=== PATIENT | female | born 1930 | race Caucasian/White ===

== ENCOUNTER 2017-02-16 17:19 | Inpatient (IN) | payer MEDICARE ==
[2017-02-16 18:28] LABS: #Basophils 0.1 thou/uL (0.0-0.2); #Lymphocytes 0.4 thou/uL (1.20-3.40); #Monocytes 0.6 thou/uL (0.11-0.59); #Neutrophils 13.9 thou/uL (1.40-6.50); %Basophils 0.8 % (0.0-1.0); %Eosinophils 0.1 % (0.0-10.0); %Lymphocytes 2.7 % (21.0-51.0); %Monocytes 4.2 % (0.0-10.0); Hematocrit 31.8 % (36.0-47.0); Mean Platelet Volume 9.1 fL (7.4-10.4); Red Blood Cell (RBC) Count 3.78 mill/uL (4.20-5.40); White Blood Cell (WBC) Count 15.1 thou/uL (4.8-10.8)
[2017-02-16 18:37] LABS: Lactic Acid - Sepsis 1.6 mmol/L (0.5-2.2)
[2017-02-16 18:44] LABS: ALT (SGPT) 23 U/L (8-55); AST (SGOT) 25 U/L (5-34); Alkaline Phosphatase 60 U/L (40-150); Anion Gap 17 mmol/L (10-20); BUN (Urea Nitrogen) 23 mg/dL (9.8-20.1); Bilirubin, Total 0.5 mg/dL (0.2-1.2); Calc. Creatinine Clearance 0 mL/min (70-130); Calcium 9.3 mg/dL (7.8-10.44); Carbon Dioxide 21 mmol/L (23-31); Chloride 95 mmol/L (98-107); Estimated GFR-MDRD 49; Globulin 3.4 g/dL (2.4-3.5); Protein, Total 6.8 g/dL (6.0-8.3)
[2017-02-16 18:46] LABS: Bilirubin Negative (Negative); Blood, Urine Moderate (Negative); Glucose, Urine (Dipstick) Negative (Negative); Ketone, Urine Negative (Negative); Nitrite Positive (Negative); Protein, Urine (Dipstick) 100 mg/dL (Neg-Trace); Urobilinogen 0.2 mg/dL (0.2-1.0)
--- NOTE | 2017-02-16 18:48 | RAD ---
PORTABLE CHEST: 02/16/17 HISTORY: Fever. recent fall. Heart size appears slightly enlarged. There are atherosclerotic changes of the aorta. Surgical clips are seen in the right axillary region. The lungs are clear of infiltrates. IMPRESSION: Mild cardiomegaly. POS: [facility]
[2017-02-16 18:49] LABS: WBC/HPF 21-50 HPF (0-3)
[2017-02-16 18:50] LABS: Bacteria/HPF 4+ HPF (None Seen); Oval Fat Bodies/HPF Rare HPF (None Seen); Renal Epithelial 0-3 HPF (0-3)
[2017-02-16] MEDS ORDERED: cefTRIAXone\\ROCEPHIN 2 GM VIAL ONE (19:56)
[2017-02-16] MEDS ORDERED: Sodium Chloride 0.9% 100 ML ONE (19:56)
[2017-02-16] MEDS ORDERED: Potassium Chloride 20 MEQ TAB ONE (20:30)
[2017-02-16] MEDS ORDERED: Ondansetron HCl/PF 4 MG/2 ML Vial IVP PRN (23:02)
[2017-02-16] MEDS ORDERED: Ondansetron ODT 4 MG TAB SL PRN (23:02)
[2017-02-16] MEDS ORDERED: Acetaminophen 325 MG TAB PO PRN (23:02)
[2017-02-16 23:19] VITALS: BMI 30.9
[2017-02-16] MEDS: Sodium Chloride 0.9% 1,000 ML IV SCH (23:36)
[2017-02-17] MEDS ORDERED: HYDROcodone/Acetaminophen 5/325 mg Tablet PO PRN (02:08)
[2017-02-17] MEDS ORDERED: Ondansetron ODT 4 MG TAB PO PRN (02:08)
[2017-02-17] MEDS ORDERED: HYDROcodone/Acetaminophen 10/325 mg Tablet PO PRN (02:08)
[2017-02-17] MEDS ORDERED: Dextrose 50% Abboject 50 ML SYRINGE SLOW IVP PRN (02:10)
[2017-02-17] MEDS ORDERED: Dextrose 5% in Water 1,000 ML IV PRN (02:10)
[2017-02-17] MEDS: Sodium Chloride 0.9% 1,000 ML IV SCH ×4 (02:41→19:38)
[2017-02-17 05:16] LABS: #Lymphocytes 0.9 thou/uL (1.20-3.40); #Neutrophils 11.5 thou/uL (1.40-6.50); %Basophils 0.1 % (0.0-1.0); %Eosinophils 0.1 % (0.0-10.0); %Lymphocytes 6.9 % (21.0-51.0); %Monocytes 7.5 % (0.0-10.0); Anion Gap 11 mmol/L (10-20); BUN (Urea Nitrogen) 17 mg/dL (9.8-20.1); Calc. Creatinine Clearance 52 mL/min (70-130); Calcium 8.3 mg/dL (7.8-10.44); Carbon Dioxide 23 mmol/L (23-31); Chloride 103 mmol/L (98-107); Estimated GFR-MDRD 61; Hematocrit 31.4 % (36.0-47.0); Red Blood Cell (RBC) Count 3.62 mill/uL (4.20-5.40); White Blood Cell (WBC) Count 13.4 thou/uL (4.8-10.8)
[2017-02-17] MEDS: Levothyroxine Sodium 50 MCG TAB PO SCH (05:35)
--- NOTE | 2017-02-17 06:44 | HP ---
PRIMARY CARE PHYSICIAN: Listed as [facility] here in [place]. CHIEF COMPLAINT: Shaking and fall. HISTORY OF PRESENT ILLNESS: Ms. Alexandre is a pleasant 86-year-old female with histor y of hypertension, hyperlipidemia, diabetes, and osteopenia, who presents to an outside emergency de partment after falling today. Her daughter at the bedside gave the history, states the patient began to have a spell of shaking ye day where she had shaking of upper extremities. She was coherent during the whole day and just felt cold. Today, the shaking returned while the patient was sitting on the toilet. Due to the shaking, she fe lt very weak and subsequently slid down off the toilet on to the floor. Per the daughter, she did f eel feverish today, however, when EMS was called, she had a temperature over 100. She denies any ch est pain or difficulty breathing, no nausea or vomiting, no hematuria or dysuria. She was taken to the emergency department at [facility] emergency room where she was diag nosed with a urinary tract infection due to abnormal urine and elevated white blood cell count. She was given IV vancomycin and Rocephin and transported here after 2 liters of normal saline. Incidentally, on 02/05, the patient was seen by her primary care physician, was diagnosed with a UT I at that point and started on 5 days of an unknown antibiotic, which she did complete. To the daug hter's knowledge, a urine culture was not sent. The patient is currently feeling better after getting fluids. PAST MEDICAL HISTORY: 1. Hypertension. 2. Hyperlipidemia. 3. Diabetes mellitus, type 2. 4. Osteopenia. 5. Hypothyroidism. 6. History of breast cancer, status post mastectomy. PAST SURGICAL HISTORY: 1. Right mastectomy. 2. Appendectomy. 3. Cholecystectomy. 4. Bilateral tubal ligation. HOME MEDICATIONS: 1. Fosamax 70 mg p.o. every week. 2. Levothyroxine 50 mcg daily. 3. Metoprolol tartrate 50 mg p.o. every morning. 4. Olmesartan/HCTZ 40/25 one p.o. daily. 5. Zocor 10 mg p.o. at bedtime. 6. Amlodipine 10 mg p.o. every morning. 7. Metformin 500 mg p.o. b.i.d. ALLERGIES: NKDA. FAMILY HISTORY: Negative for clotting or bleeding disorder, no history of immune dysfunction. SOCIAL HISTORY: Negative for habits x3. REVIEW OF SYSTEMS: A 10-point review of systems was performed and negative for all other systems ex cept as stated as per HPI. PHYSICAL EXAMINATION: VITAL SIGNS: Temperature on arrival 96.4, pulse 104, blood pressure 141/91, respiratory rate 20, sa tting 92% on room air. GENERAL: She is awake. She is alert. She is oriented x3. She is a well-developed, well-nourished , quit female, appears to be in no acute distress. HEENT: She is normocephalic, atraumatic. Pupils are equal and reactive bilaterally, mucous membran es are moist. She has no visible lesion, no thrush. NECK: Supple, without lymphadenopathy, JVD, or thyromegaly. CHEST: Lungs are clear. She has good air movement. Symmetrical chest excursion and no wheezes, ra les, or rhonchi. CARDIOVASCULAR: Slightly tachycardic. Normal S1 and S2. No S3 or S4. She has a faint systolic mu rmur at the right upper sternal border, 2/10 and no diastolic murmurs. ABDOMEN: Soft. It is nontender and nondistended, slightly obese. She has no rebound, rigidity, or guarding. EXTREMITIES: Show no cyanosis, no clubbing, no edema. 2+ peripheral pulses in dorsalis pedis and p osterior tibial arteries in bilateral lower extremities. SKIN: Warm, moist, and well perfused. She has no rashes or lesions. MUSCULOSKELETAL EXAM: Normal to inspection. She has no inflamed or hot joints. She has no palpabl e joint effusions. NEUROLOGIC EXAM: Shows cranial nerves II through XII are grossly intact. She has 5/5 strength. e has no focal deficits and normal speech. LABORATORY DATA: CMP showed a sodium of 130, potassium 3.3, chloride 95, bicarbonate 21, BUN 23, cr eatinine 1.07, and glucose 185. Liver functions were normal. CBC showed white count elevated at 15,100 with 92% granulocytes, hemoglobin is 10.8, hematocrit of 3 1.8, and platelets were normal at 148,000. Urinalysis showed nitrite positive, leukocyte esterase moderate, white blood cells 21 to 50, and uri ne bacteria 4+. Lactic acid was normal at 1.6. RADIOGRAPHIC STUDIES: 1. Chest x-ray showed mild cardiomegaly, but stable. 2. EKG showed right bundle-branch block with sinus tachycardia. ASSESSMENT AND PLAN: 1. Urinary tract infection. Patient apparently just failed outpatient therapy. She received Rocep hin and vancomycin. My doubt is methicillin-resistant Staphylococcus aureus. We will treat her wit h cefepime 1 gram IV every 12 hours, await for urine culture. 2. Sepsis: Tachycardic, elevated white blood cell count, suspected bacterial infection, and low te mperature. Patient adequately volume resuscitated. We will continue her on IV fluids here. We ramandeep l continue antibiotics and follow up on cultures. 3. Diabetes mellitus, type 2. The patient is on metformin, which was hold at present. We will kunal ce patient on a sliding scale correction and before and at bedtime Accu-Cheks. 4. Hypertension: On metoprolol and olmesartan/HCTZ, we will continue, and also continue amlodipine . 5. Hyperlipidemia, on Zocor: We will hold for right now. There is osteopenia, on weekly Fosamax. 6. Hypothyroidism. We will continue her on levothyroxine.
--- NOTE | 2017-02-17 09:45 | PDOC.PN ---
- Subjective Encounter Start Date: 02/17/17 Encounter Start Time: 08:00 Subjective: no sob or chills, is feeling better -: oriented well - Objective Resuscitation Status: Resuscitation Status FULL:Full Resuscitation MAR Reviewed: Yes Vital Signs & Weight: Vital Signs (12 hours) Temp Pulse Resp BP Pulse Ox 02/17/17 04:00 98.2 F 18 138/67 02/16/17 23:14 96.6 F L 104 H 20 141/91 H 92 L 02/16/17 23:10 96.6 F L 104 H 20 92 L Weight Weight 153 lb I&O: 02/16/17 02/17/17 02/18/17 06:59 06:59 06:59 Intake Total 927 Output Total 1650 Balance -723 Result Diagrams: 02/17/17 04:26 02/17/17 04:26 Additional Labs: Accuchecks 02/17/17 05:54 POC Glucose 152 H Phys Exam - Physical Examination HEENT: PERRLA, moist MMs Neck: no JVD, supple Respiratory: no wheezing, no rales Cardiovascular: RRR, no significant murmur Gastrointestinal: soft, non-tender, positive bowel sounds Musculoskeletal: no edema, pulses present Neurological: non-focal, moves all 4 limbs Psychiatric: A&O x 3 Dx/Plan (1) Sepsis Code(s): A41.9 - SEPSIS, UNSPECIFIED ORGANISM Status: Acute Qualifiers: Sepsis type: sepsis due to unspecified organism Qualified Code(s): A41.9 - Sepsis, unspecified organism (2) UTI (urinary tract infection) Status: Acute Qualifiers: Urinary tract infection type: acute cystitis Hematuria presence: without hematuria Qualified Code(s): N30.00 - Acute cystitis without hematuria (3) DM type 2 (diabetes mellitus, type 2) Status: Chronic Qualifiers: Diabetes mellitus complication status: with unspecified complications Diabetes mellitus group home insulin use: without group home use Qualified Code( s): E11.8 - Type 2 diabetes mellitus with unspecified complications (4) HTN (hypertension) Code(s): I10 - ESSENTIAL (PRIMARY) HYPERTENSION Status: Chronic Qualifiers: Hypertension type: essential hypertension Qualified Code(s): I10 - Essential (primary) hypertension (5) Dyslipidemia Code(s): E78.5 - HYPERLIPIDEMIA, UNSPECIFIED Status: Chronic (6) Hypothyroidism Code(s): E03.9 - HYPOTHYROIDISM, UNSPECIFIED Status: Chronic Qualifiers: Hypothyroidism type: unspecified Qualified Code(s): E03.9 - Hypothyroidism , unspecified (7) h/o right breast cancer Status: Chronic Comment: with prior mastectomy in remission - Plan is on cefepime -: await cultures -: prior CT abd shows no calculus -: gentle iv hydration until the current bag is done -: to ambulate as tolerated, d/w family at bedside * . Review of Systems - Medications/Allergies Allergies/Adverse Reactions: Allergies Allergy/AdvReac Type Severity Reaction Status Date / Time No Known Drug Allergies Allergy Verified 02/16/17 23:16 Medications: Current Medications Acetaminophen (Tylenol) 650 mg PO Q4H PRN PRN Reason: Headache/Fever or Pain Stop: 02/17/17 09:58 Last Admin: 02/17/17 00:20 Dose: 650 mg Hydrocodone Bitart/Acetaminophen ([place] 10/325) 1 tab PO Q4H PRN PRN Reason: Severe Pain (7-10) Hydrocodone Bitart/Acetaminophen ([place] 5/325) 1 tab PO Q4H PRN PRN Reason: Moderate Pain (4-6) Amlodipine Besylate (Norvasc) 10 mg PO DAILY [facility] Dextrose/Water (Dextrose 50%) 25 gm SLOW IVP PRN PRN PRN Reason: Hypoglycemia Famotidine (Pepcid) 20 mg PO BID [facility] Glucagon (Glucagon) 1 mg IM PRN PRN PRN Reason: Hypoglycemia Hydrochlorothiazide (Hydrochlorothiazide) 25 mg PO DAILY [facility] Cefepime HCl 1 gm/Miscellaneous Medication 1 each/ Sodium Chloride 100 mls @ 200 mls/hr IVPB Q12HR [facility] Dextrose/Water (D5w) 1,000 mls @ 0 mls/hr IV .Q0M PRN; As Directed PRN Reason: Hypoglycemia Sodium Chloride (Normal Saline 0.9%) 1,000 mls @ 100 mls/hr IV .Q10H [facility] Last Admin: 02/17/17 05:38 Dose: 1,000 mls Insulin Human Lispro (Humalog) 0 units SC .MILD SLIDING SCALE PRN PRN Reason: Mild Correctional Scale Levothyroxine Sodium (Synthroid) 50 mcg PO 0600 [facility] Last Admin: 02/17/17 05:35 Dose: 50 mcg Metoprolol Tartrate (Lopressor) 50 mg PO DAILY [facility] Olmesartan (Benicar) 40 mg PO DAILY [facility] Ondansetron HCl (Zofran) 4 mg IVP Q6H PRN PRN Reason: Nausea/Vomiting Stop: 02/17/17 09:58 Ondansetron HCl (Zofran Odt) 4 mg SL Q6H PRN PRN Reason: Nausea/Vomiting Stop: 02/17/17 09:58 Ondansetron HCl (Zofran Odt) 4 mg PO Q6H PRN PRN Reason: Nausea/Vomiting Simvastatin (Zocor) 10 mg PO HS [facility] Sodium Chloride (Flush - Normal Saline) 10 ml IVF Q12HR [facility] Sodium Chloride (Flush - Normal Saline) 10 ml IVF PRN PRN PRN Reason: Saline Flush
[2017-02-17] MEDS: Metoprolol Tartrate 50 MG TAB PO SCH (09:50)
[2017-02-17] MEDS: Cefepime 1 GM, Admixture Fee 1 EACH in Sodium Chloride 0.9% 100 ML IVPB SCH ×2 (09:50→19:29)
[2017-02-17] MEDS: Amlodipine 10 MG TAB PO SCH (09:50)
[2017-02-17] MEDS: Hydrochlorothiazide 25 MG TAB PO SCH (09:50)
[2017-02-17] MEDS: Famotidine 20 MG TAB PO SCH ×2 (09:50→19:30)
--- NOTE | 2017-02-17 13:28 | CT ---
CT STONE PROTOCOL ABDOMEN AND PELVIS WITHOUT CONTRAST: History Flank pain. Breast surgery. COMPARISON: CT abdomen and pelvis 04/29/14. FINDINGS: Heart size is enlarged. Trace pericardial fluid. Dense mitral annular calcifications. Small pleural fluid. There is mild retroperitoneal fluid. Mild subcutaneous fluid. There is asymmetric edema around the right kidney relative to the left. No hydroureteral nephrosis or nephroureteral lithiasis. Modera te atherosclerotic plaque of the aortoiliac system. 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 No dilated loops of large or small bowel. Prior cholecystectomy. Severe degenerative disease of pubic symphysis. Pulmonary nodule right middle lobe is similar. Right renal cysts are similar. Small fat-containing right thoracolumbar fascia hernia, similar. IMPRESSION: 1. Asymmetric perinephric stranding and renomegaly of the right kidney relative to the left suggest s pyelonephritis given the absence of distal obstructing calculus. Small distal obstructing urotheli al mass cannot be excluded and follow up urogram may be beneficial if clinically warranted. 2. Increased perinephric stranding bilaterally as well as subcutaneous edema relative to the prior examination along with small left effusion. The cardiomegaly suggests volume overload or congestiv e heart failure. Clinical correlation is advised. 3. Similar appearance to the right lower lobe pulmonary nodules. 4. Right renal cyst. 5. Moderate to severe spondylosis of the lumbar spine. There is likely some mild canal and neural foraminal narrowing at L4-5. POS: [facility]
[2017-02-17] MEDS: metFORMIN 500 MG TAB PO SCH (17:02)
[2017-02-17] MEDS: Simvastatin 5 MG TAB PO SCH (19:29)
[2017-02-18] MEDS: Acetaminophen 500 MG TAB PO PRN ×2 (04:08→17:31)
[2017-02-18] MEDS: Levothyroxine Sodium 50 MCG TAB PO SCH (05:03)
[2017-02-18] MEDS: Cefepime 1 GM, Admixture Fee 1 EACH in Sodium Chloride 0.9% 100 ML IVPB SCH ×2 (09:21→20:43)
[2017-02-18] MEDS: HumaLOG 300 UNITS/3 ML VIAL SC PRN (09:22)
[2017-02-18] MEDS: Hydrochlorothiazide 25 MG TAB PO SCH (09:23)
[2017-02-18] MEDS: Amlodipine 10 MG TAB PO SCH (09:23)
[2017-02-18] MEDS: Metoprolol Tartrate 50 MG TAB PO SCH (09:23)
[2017-02-18] MEDS: metFORMIN 500 MG TAB PO SCH ×2 (09:24→17:31)
[2017-02-18] MEDS: Famotidine 20 MG TAB PO SCH ×2 (09:24→20:44)
--- NOTE | 2017-02-18 10:00 | PDOC.PN ---
- Subjective Encounter Start Date: 02/18/17 Encounter Start Time: 08:15 Subjective: feels better, is eating better now -: no further chills - Objective Resuscitation Status: Resuscitation Status FULL:Full Resuscitation MAR Reviewed: Yes Vital Signs & Weight: Vital Signs (12 hours) Temp Pulse Resp BP BP BP Pulse Ox 02/18/17 09:23 95 143/94 H 02/18/17 09:15 98.8 F 95 18 143/94 H 92 L 02/18/17 04:00 100.3 F H 112 H 18 144/67 H Weight Weight 153 lb I&O: 02/17/17 02/18/17 02/19/17 06:59 06:59 06:59 Intake Total 927 2092 Output Total 1650 1300 Balance -723 792 Result Diagrams: 02/17/17 04:26 02/17/17 04:26 Additional Labs: Accuchecks 02/18/17 02/17/17 02/17/17 05:13 21:03 16:36 POC Glucose 164 H 230 H 148 H 02/17/17 11:33 POC Glucose 180 H Phys Exam - Physical Examination HEENT: PERRLA, moist MMs Neck: no JVD, supple Respiratory: no wheezing, no rales Cardiovascular: RRR, no significant murmur Gastrointestinal: soft, non-tender, positive bowel sounds Musculoskeletal: no edema, pulses present Neurological: non-focal, moves all 4 limbs Psychiatric: A&O x 3 Dx/Plan (1) Bacteremia due to Escherichia coli Code(s): R78.81 - BACTEREMIA Status: Acute (2) Sepsis Code(s): A41.9 - SEPSIS, UNSPECIFIED ORGANISM Status: Acute Qualifiers: Sepsis type: sepsis due to unspecified organism Qualified Code(s): A41.9 - Sepsis, unspecified organism (3) UTI (urinary tract infection) Status: Acute Qualifiers: Urinary tract infection type: acute pyelonephritis Qualified Code(s): N10 - Acute pyelonephritis Comment: right pyelonephritis (4) DM type 2 (diabetes mellitus, type 2) Status: Chronic Qualifiers: Diabetes mellitus complication status: with unspecified complications Diabetes mellitus snf insulin use: without ferry terminal agent use Qualified Code( s): E11.8 - Type 2 diabetes mellitus with unspecified complications (5) HTN (hypertension) Code(s): I10 - ESSENTIAL (PRIMARY) HYPERTENSION Status: Chronic Qualifiers: Hypertension type: essential hypertension Qualified Code(s): I10 - Essential (primary) hypertension (6) Dyslipidemia Code(s): E78.5 - HYPERLIPIDEMIA, UNSPECIFIED Status: Chronic (7) Hypothyroidism Code(s): E03.9 - HYPOTHYROIDISM, UNSPECIFIED Status: Chronic Qualifiers: Hypothyroidism type: unspecified Qualified Code(s): E03.9 - Hypothyroidism , unspecified (8) h/o right breast cancer Status: Chronic Comment: with prior mastectomy in remission - Plan is on cefepime -: await final culture results, dont see urine cs -: transfer pt to medical floor -: dc iv fluids, is tolerating oral diet -: tmax of 100, will need outpt urology consult in 3 weeks * . Review of Systems - Medications/Allergies Allergies/Adverse Reactions: Allergies Allergy/AdvReac Type Severity Reaction Status Date / Time No Known Drug Allergies Allergy Verified 02/16/17 23:16 Medications: Current Medications Acetaminophen (Tylenol) 1,000 mg PO Q6H PRN PRN Reason: Headache/Fever or Pain Last Admin: 02/18/17 04:08 Dose: 1,000 mg Hydrocodone Bitart/Acetaminophen ([place] 10/325) 1 tab PO Q4H PRN PRN Reason: Severe Pain (7-10) Hydrocodone Bitart/Acetaminophen ([place] 5/325) 1 tab PO Q4H PRN PRN Reason: Moderate Pain (4-6) Last Admin: 02/17/17 19:30 Dose: 1 tab Amlodipine Besylate (Norvasc) 10 mg PO DAILY [facility] Last Admin: 02/18/17 09:23 Dose: 10 mg Dextrose/Water (Dextrose 50%) 25 gm SLOW IVP PRN PRN PRN Reason: Hypoglycemia Famotidine (Pepcid) 20 mg PO BID [facility] Last Admin: 02/18/17 09:24 Dose: 20 mg Glucagon (Glucagon) 1 mg IM PRN PRN PRN Reason: Hypoglycemia Hydrochlorothiazide (Hydrochlorothiazide) 25 mg PO DAILY [facility] Last Admin: 02/18/17 09:23 Dose: 25 mg Cefepime HCl 1 gm/Miscellaneous Medication 1 each/ Sodium Chloride 100 mls @ 200 mls/hr IVPB Q12HR [facility] Last Admin: 02/18/17 09:21 Dose: 100 mls Dextrose/Water (D5w) 1,000 mls @ 0 mls/hr IV .Q0M PRN; As Directed PRN Reason: Hypoglycemia Sodium Chloride (Normal Saline 0.9%) 1,000 mls @ 100 mls/hr IV .Q10H [facility] Last Admin: 02/17/17 19:38 Dose: 1,000 mls Insulin Human Lispro (Humalog) 0 units SC .MILD SLIDING SCALE PRN PRN Reason: Mild Correctional Scale Last Admin: 02/18/17 09:22 Dose: 2 unit Levothyroxine Sodium (Synthroid) 50 mcg PO 0600 [facility] Last Admin: 02/18/17 05:03 Dose: 50 mcg Metformin HCl (Glucophage) 500 mg PO BID[facility] Last Admin: 02/18/17 09:24 Dose: 500 mg Metoprolol Tartrate (Lopressor) 50 mg PO DAILY [facility] Last Admin: 02/18/17 09:23 Dose: 50 mg Olmesartan (Benicar) 40 mg PO DAILY [facility] Last Admin: 02/18/17 09:23 Dose: 40 mg Ondansetron HCl (Zofran Odt) 4 mg PO Q6H PRN PRN Reason: Nausea/Vomiting Simvastatin (Zocor) 10 mg PO HS [facility] Last Admin: 02/17/17 19:29 Dose: 10 mg Sodium Chloride (Flush - Normal Saline) 10 ml IVF Q12HR [facility] Last Admin: 02/18/17 09:24 Dose: Not Given Sodium Chloride (Flush - Normal Saline) 10 ml IVF PRN PRN PRN Reason: Saline Flush
[2017-02-18] MEDS: Sodium Chloride 0.9% 1,000 ML IV SCH (10:44)
[2017-02-18] MEDS: Simvastatin 5 MG TAB PO SCH (20:44)
--- NOTE | 2017-02-18 23:28 | CON ---
DATE OF CONSULTATION: 02/18/2017 CONSULTING PHYSICIAN: Nany Diaz. CONSULTED PHYSICIAN: Dr. Diaz. REASON FOR CONSULTATION: Urinary tract infection with sepsis. HISTORY OF PRESENT ILLNESS: Ms. Alexandre is an 86-year-old [place] female who is known to me from prior office visit. She was admitted recently for urosepsis secondary to a presumed urinary tr act infection. Previously on her visits with pr, she had been referred to pr for recurrent urinary tract infections. At that time, she was actually diagnosed with asymptomatic bacteria. She had not had any symptoms associated with her positive urine cultures previously. I had advised against james atment of asymptomatic bacteria as there was no evidence to support treatment of bacteria in the uri ne without symptoms. I told her that if she develops symptomatic urinary tract infections on a recu rring basis, we would opt for treatment at that point, but otherwise she did not need any further tr eatment. Unfortunately, the patient did develop a symptomatic urinary tract infection, which was tr eated by her primary care physician. She developed back pain and abdominal pain with odor to her ur ine with a positive urine culture. Unfortunately despite appropriate treatment with antibiotics, th e patient progressed to the point where she became weak with shaking chills and a fever over 100 deg alana Fahrenheit. She was taken to the emergency room in [facility] where she was diagnos ed with urinary tract infection with elevated white count and given vancomycin, Rocephin and transpo rted to [place]. Blood cultures taken at that time was positive for E. coli within the blood. U nfortunately, a urine culture was not taken at the time of her initiation of symptoms of urinary tra ct infection at her initial visit with the PCP; just a UA was done at that time. She is now signifi cantly improving on IV antibiotics and is feeling much better. She did undergo a CT scan, which rep orts are documented below. ALLERGIES: None. HOME MEDICATIONS: 1. Fosamax. 2. Synthroid. 3. Metoprolol. 4. Olmesartan and hydrochlorothiazide. 5. Zocor. 6. Amlodipine. 7. Metformin. PAST MEDICAL HISTORY: 1. Hypertension. 2. Hyperlipidemia. 3. Type 2 diabetes. 4. Osteopenia. 5. Hypothyroidism. 6. Breast cancer. PAST SURGICAL HISTORY: 1. Right mastectomy. 2. Appendectomy. 3. Cholecystectomy. 4. Bilateral tubal ligation. FAMILY HISTORY: Noncontributory. SOCIAL HISTORY: No history of illicit drug use, alcohol abuse or smoking history. REVIEW OF SYSTEMS: A 12-point review of systems was unremarkable other than what was commented on t he HPI. Specifically, now she is denying any fevers and stating she has significantly improved back pain. She denies any chills and states she is feeling more energetic. Remainder of the 12-point r eview systems was reviewed and otherwise negative. PHYSICAL EXAMINATION: VITAL SIGNS: Temperature 99.8 with a T-max of 100.7, pulse 100, blood pressure 134/79, respirations 16 and saturation 94% on room air. GENERAL: No apparent distress, communicative and alert. Appears stated age, somewhat frail and eld erly. HEENT: Normocephalic, atraumatic. Sclerae are nonicteric. Pupils are symmetric and round. Trache a midline. Moist mucous membranes. CHEST: Clear anteriorly, bilateral breath sounds, symmetric expansion of lungs, nonlabored breathin g. CARDIOVASCULAR: Sinus tachycardia. Normal S1 and S2. Symmetric pulses. ABDOMEN: Soft, nontender and nondistended. Positive bowel sounds. No guarding or rebound. No org anomegaly or hernias noted. EXTREMITIES: No clubbing, cyanosis or edema. SKIN: Warm, dry, poor turgor. No rashes. MUSCULOSKELETAL: No joint deformities or joint erythema noted, full range of motion, although stren gth is not tested. NEUROLOGIC: Cranial nerves II-XII grossly intact. No focal sensory or motor deficits identified. GENITOURINARY: Deferred. PSYCHIATRIC: Alert and oriented x3, appropriate mood and affect for her situation. LABORATORY AND IMAGING DATA: On laboratory evaluation, the full set of labs in the [facility] system, which I have reviewed. Of note, the patient's white count has decreased from 15.1 to 13.4, creatin ine is currently 0.88. Urinalysis from 02/16, demonstrates 4+ bacteria, 21-50 white cells, 4-6 red cells, moderate leukocyte esterase, positive nitrites, moderate blood with negative glucose. No rec ent urine culture was taken except from 02/05, which demonstrated a pansensitive E. coli. She curre ntly is growing E. coli in her blood. The sensitivities have not yet resulted. Her urine culture c ollected on 02/17, after initiation of antibiotics was negative. CT of the abdomen and pelvis from 02/17, demonstrates asymmetric perinephric stranding and renomegaly of the right kidney, relative to the left suggestive of pyelonephritis. No obvious calculi noted. There is a small distal obstruct ing urothelial mass, which cannot be excluded on and follow up urogram may be of beneficial use if c linically warranted. There is increased perinephric stranding bilaterally as well as subcutaneous e chele relative to the prior examination along with small left effusion, stable appearance of the righ t lower lobe pulmonary nodules, right renal cyst and moderate to severe spondylosis of the lumbar sp ine. ASSESSMENT AND PLAN: An 86-year-old [place] female with pyelonephritis and urosepsis with a questionable mass versus debris of the ureter. I suspect this may just be debris or potentially nec rotic tissue such as acute papillary necrosis from her recent infection, which was severe. Given th at she is clinically improving, I do not think a CT urogram is warranted at this time. Given her re cent infection, I would rather not expose her to Dilaudid at this point. As long as she is clinical ly improving, I think we can do a follow up CT urogram as an outpatient after a few weeks; however, if she does have another spiking fever, elevation in her white count, would recommend a CT urogram w [facility] inpatient to ensure that she does not have hydronephrosis or concerns for an obstruction. She technically is still not classified as recurrent urinary tract infections as her previous urine cult ures have all been asymptomatic and not associated with recurrent urinary tract infections; however, given the severity of this infection, I told her that it may be reasonable to go ahead and start to pical estrogen cream to the vagina 3 times a week which has been shown to reduce urinary tract infec tion risks significantly in postmenopausal women. Additionally, after completing antibiotics, she s hould consider the use of probiotics, which although equivocal has been reported to have some effica cy reducing risk for recurrent urinary tract infections. I will schedule her followup appointment t o come see me after she is discharged from the hospital and completed with her antibiotic therapy. SUMMARY OF RECOMMENDATIONS: 1. Initiate topical vaginal estrogen cream 3 times a week. 2. Probiotics after completing her oral antibiotic or IV antibiotic regimen. 3. Patient can follow up with me as an outpatient. We will place follow up into the computer [email or web address] m. 4. Outpatient CT urogram as long as she is clinically improving. If she does spike another fever? has elevation of white count or has pain or any clinical deterioration, we would recommend CT urogra m while inpatient.
[2017-02-19] MEDS: Levothyroxine Sodium 50 MCG TAB PO SCH (04:11)
[2017-02-19] MEDS: Acetaminophen 500 MG TAB PO PRN ×2 (04:11→16:00)
[2017-02-19 07:05] LABS: #Lymphocytes 0.7 thou/uL (1.20-3.40); #Monocytes 0.7 thou/uL (0.11-0.59); %Basophils 0.3 % (0.0-1.0); %Eosinophils 0.4 % (0.0-10.0); %Lymphocytes 10.3 % (21.0-51.0); %Monocytes 10.8 % (0.0-10.0); Hematocrit 29.3 % (36.0-47.0); Mean Platelet Volume 8.5 fL (7.4-10.4); Red Blood Cell (RBC) Count 3.38 mill/uL (4.20-5.40); White Blood Cell (WBC) Count 6.4 thou/uL (4.8-10.8)
[2017-02-19 07:28] LABS: ALT (SGPT) 26 U/L (8-55); AST (SGOT) 28 U/L (5-34); Alkaline Phosphatase 55 U/L (40-150); Anion Gap 10 mmol/L (10-20); BUN (Urea Nitrogen) 18 mg/dL (9.8-20.1); Bilirubin, Total 0.3 mg/dL (0.2-1.2); Calc. Creatinine Clearance 46 mL/min (70-130); Calcium 8.5 mg/dL (7.8-10.44); Carbon Dioxide 27 mmol/L (23-31); Chloride 99 mmol/L (98-107); Estimated GFR-MDRD 53; Globulin 3.2 g/dL (2.4-3.5)
[2017-02-19] MEDS: Hydrochlorothiazide 25 MG TAB PO SCH (08:53)
[2017-02-19] MEDS: Famotidine 20 MG TAB PO SCH ×2 (08:53→21:07)
[2017-02-19] MEDS: Amlodipine 10 MG TAB PO SCH (08:53)
[2017-02-19] MEDS: metFORMIN 500 MG TAB PO SCH ×2 (08:53→17:14)
[2017-02-19] MEDS: Metoprolol Tartrate 50 MG TAB PO SCH (08:53)
--- NOTE | 2017-02-19 10:30 | PDOC.PN ---
- Subjective Encounter Start Date: 02/19/17 Encounter Start Time: 09:15 Subjective: awake, has mild right loin pain on deep breathing -: no nausea or vomiting - Objective Resuscitation Status: Resuscitation Status FULL:Full Resuscitation MAR Reviewed: Yes Vital Signs & Weight: Vital Signs (12 hours) Temp Pulse Resp BP BP Pulse Ox 02/19/17 08:53 85 137/85 02/19/17 07:25 98.5 F 85 18 137/85 91 L 02/19/17 05:43 98.3 F 02/19/17 04:00 101.1 F H 103 H 20 139/74 94 L 02/19/17 00:26 98.2 F 88 20 131/89 93 L Weight Weight 153 lb I&O: 02/18/17 02/19/17 02/20/17 06:59 06:59 06:59 Intake Total 2092 720 Output Total 1300 1350 Balance 792 -630 Result Diagrams: 02/19/17 06:46 02/19/17 06:46 Additional Labs: Accuchecks 02/19/17 02/18/17 02/18/17 04:00 20:43 17:23 POC Glucose 149 H 178 H 128 H 02/18/17 11:23 POC Glucose 153 H Phys Exam - Physical Examination HEENT: PERRLA, moist MMs Neck: no JVD, supple Respiratory: no wheezing, no rales Cardiovascular: RRR, no significant murmur Gastrointestinal: soft, no distention, positive bowel sounds Musculoskeletal: no edema, pulses present Neurological: non-focal, moves all 4 limbs Psychiatric: A&O x 3 Dx/Plan (1) Bacteremia due to Escherichia coli Code(s): R78.81 - BACTEREMIA Status: Acute (2) Sepsis Code(s): A41.9 - SEPSIS, UNSPECIFIED ORGANISM Status: Acute Qualifiers: Sepsis type: sepsis due to unspecified organism Qualified Code(s): A41.9 - Sepsis, unspecified organism (3) UTI (urinary tract infection) Status: Acute Qualifiers: Urinary tract infection type: acute pyelonephritis Qualified Code(s): N10 - Acute pyelonephritis Comment: right pyelonephritis (4) DM type 2 (diabetes mellitus, type 2) Status: Chronic Qualifiers: Diabetes mellitus complication status: with unspecified complications Diabetes mellitus chcf insulin use: without joint terminal attack controller use Qualified Code( s): E11.8 - Type 2 diabetes mellitus with unspecified complications (5) HTN (hypertension) Code(s): I10 - ESSENTIAL (PRIMARY) HYPERTENSION Status: Chronic Qualifiers: Hypertension type: essential hypertension Qualified Code(s): I10 - Essential (primary) hypertension (6) Dyslipidemia Code(s): E78.5 - HYPERLIPIDEMIA, UNSPECIFIED Status: Chronic (7) Hypothyroidism Code(s): E03.9 - HYPOTHYROIDISM, UNSPECIFIED Status: Chronic Qualifiers: Hypothyroidism type: unspecified Qualified Code(s): E03.9 - Hypothyroidism , unspecified (8) h/o right breast cancer Status: Chronic Comment: with prior mastectomy in remission - Plan e.coli is resistant to current cefepime, will switch to meropenem -: picc line, ID consult -: will likely need invanz for dc plan -: had tmax of 101 * . Review of Systems - Medications/Allergies Allergies/Adverse Reactions: Allergies Allergy/AdvReac Type Severity Reaction Status Date / Time No Known Drug Allergies Allergy Verified 02/16/17 23:16 Medications: Current Medications Acetaminophen (Tylenol) 1,000 mg PO Q6H PRN PRN Reason: Headache/Fever or Pain Last Admin: 02/19/17 04:11 Dose: 1,000 mg Hydrocodone Bitart/Acetaminophen ([place] 10/325) 1 tab PO Q4H PRN PRN Reason: Severe Pain (7-10) Hydrocodone Bitart/Acetaminophen ([place] 5/325) 1 tab PO Q4H PRN PRN Reason: Moderate Pain (4-6) Last Admin: 02/17/17 19:30 Dose: 1 tab Amlodipine Besylate (Norvasc) 10 mg PO DAILY [facility] Last Admin: 02/19/17 08:53 Dose: 10 mg Dextrose/Water (Dextrose 50%) 25 gm SLOW IVP PRN PRN PRN Reason: Hypoglycemia Famotidine (Pepcid) 20 mg PO BID [facility] Last Admin: 02/19/17 08:53 Dose: 20 mg Glucagon (Glucagon) 1 mg IM PRN PRN PRN Reason: Hypoglycemia Dextrose/Water (D5w) 1,000 mls @ 0 mls/hr IV .Q0M PRN; As Directed PRN Reason: Hypoglycemia Meropenem 1 gm/ Miscellaneous Medication 1 each/ Sodium Chloride 100 mls @ 200 mls/hr IVPB Q8HR [facility] Insulin Human Lispro (Humalog) 0 units SC .MILD SLIDING SCALE PRN PRN Reason: Mild Correctional Scale Last Admin: 02/18/17 09:22 Dose: 2 unit Levothyroxine Sodium (Synthroid) 50 mcg PO 0600 [facility] Last Admin: 02/19/17 04:11 Dose: 50 mcg Metformin HCl (Glucophage) 500 mg PO BID-WM [facility] Last Admin: 02/19/17 08:53 Dose: 500 mg Metoprolol Tartrate (Lopressor) 50 mg PO DAILY [facility] Last Admin: 02/19/17 08:53 Dose: 50 mg Olmesartan (Benicar) 40 mg PO DAILY [facility] Last Admin: 02/19/17 08:53 Dose: 40 mg Ondansetron HCl (Zofran Odt) 4 mg PO Q6H PRN PRN Reason: Nausea/Vomiting Potassium Chloride (K-Dur) 40 meq PO Q6H [facility] Simvastatin (Zocor) 10 mg PO HS [facility] Last Admin: 02/18/17 20:44 Dose: 10 mg Sodium Chloride (Flush - Normal Saline) 10 ml IVF Q12HR [facility] Last Admin: 02/19/17 08:54 Dose: 10 ml Sodium Chloride (Flush - Normal Saline) 10 ml IVF PRN PRN PRN Reason: Saline Flush
[2017-02-19] MEDS: Potassium Chloride 20 MEQ TAB PO SCH ×3 (11:21→21:58)
[2017-02-19] MEDS: Meropenem 1 GM, Admixture Fee 1 EACH in Sodium Chloride 0.9% 100 ML IVPB SCH ×2 (13:49→21:07)
--- NOTE | 2017-02-19 14:06 | CON ---
DATE OF CONSULTATION: 02/19/2017 REASON FOR CONSULTATION: Bacteremia. 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 Also, not associated with dysuria, frequency, hematuria, or urinary incontinence usually. No diarrhea or constipation. No joint symptoms and no neurological symptoms. She developed fever then and brought by EMS and adm itted. Initial findings, VITAL SIGNS: Temperature 96.4, pulse 104, BP 140/90, respiratory rate 20, O2 sat 92%. GENERAL: Awake, alert, oriented. NECK: Supple. LUNGS: Clear. HEART: Slightly tachycardic. ABDOMEN: Nontender. EXTREMITIES: Examination normal. Chest x-ray with cardiomegaly. CT of the abdomen and pelvis showed perinephric stranding, right kid romina, relative to left, without any obstruction or nephrolithiasis. Urinalysis showed 21-50 WBCs, mo derate leukocyte esterase, 4-6 RBCs, and protein 100. Urine cultures positive on 02/05/2017, prior to admission, for fairly susceptible E. coli; 10/04/2016, same organism isolated, and in June same organism, and now, she has 2 sets of blood cultures with a very resistant E. coli actually. REVIEW OF SYSTEMS: A 10-point review of systems is as above. PAST MEDICAL HISTORY: Bilateral TKRs, prior urinary tract colonization with E. coli with a fairly u nremarkable urinalysis until September when done significant pyuria was noticed. Hypertension; diabetes, type 2; hypothyroidism; urinary incontinence; and breast cancer. PAST SURGICAL HISTORY: Mastectomy, right side; appendectomy; cholecystectomy; tubal ligation. MEDICATIONS: Fosamax, levothyroxine, metoprolol, olmesartan, Zocor, Norvasc, metformin. ALLERGIES: None. FAMILY HISTORY: Noncontributory. SOCIAL HISTORY: Never a smoker. Lives with family in [place]. CURRENT MEDICATIONS: Meropenem. PHYSICAL EXAMINATION: VITAL SIGNS: T-max 100.7. She is currently 97.8, blood pressure 130/85, pulse 85, respirations 18% , O2 saturations 91%. SKIN EXAM: Shows peripheral IV access. No Murray catheter. No lymphadenopathy. HEENT EXAMINATION: Noncontributory. NECK: Supple. LUNGS: With symmetric clear breath sounds. HEART: S1, S2, regular rate without murmurs. ABDOMEN: Soft, nondistended. A little bit of tenderness in the left flank region. No bladder dist ention noted. Perineal area is normal. EXTREMITIES: No joint inflammatory activity noted. Pulses are 1+ in dorsalis pedis. No edema. Mo ves all extremities equally. Plantar responses are flexure. NEUROLOGIC: Cognitive function appears to be intact. LABORATORY DATA: Latest labs, her white cell count went up to 15, now is down to 6.4, hemoglobin 10 , platelets 150, creatinine 0.99, normal liver profile, albumin 2.8. ASSESSMENT: 1. Diabetes, type 2. 2. Hypertension. 3. Recurrent urinary abnormalities, treated with oral antimicrobial therapy with a very susceptible Escherichia coli. 4. Chronic urinary incontinence. 5. Invasive urinary tract infection with pyelonephritis with resistant strain of Escherichia coli a t this time. 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 I will check her bladder emptying with a scanner and then a PICC line kunal cement and treat for another 10 days with IV Invanz in the outpatient setting. Patient may benefit from topical estrogen cream to the introitus and then the double voiding or other measures depending on the results of the bladder emptying study. In the future unless she has symptoms of fever or ot her clinical findings that would indicate an invasive urinary tract process, then I would try to alisha id treating just plain urinary findings.
--- NOTE | 2017-02-19 18:35 | SPC ---
LEFT UPPER EXTREMITY PICC LINE PLACEMENT: 02/19/17 INDICATION: Bacteremia. TECHNIQUE: Informed consent was obtained. Preprocedure ultrasound demonstrate a patent left brachial vein. Site overlying the left brachial vein was prepped and draped in the usual sterile fashion. Buffered 1% l idocaine was administered. Under ultrasound guidance, micropuncture access kit was utilized to gain access to the left brachial vein. Guide wire was advanced to the level of the IVC. 5 Wolof catheter sheath was then placed. A single lumen PICC line trimmed to 44 cm was guided over the wire through the sheath. The sheath and wire were removed. Total fluoroscopic time was 1.6 minutes. Total exposur e was 4574 mGy*cm2. IMPRESSION: Successful left upper extremity PICC line placement. POS: ROSEANNA
[2017-02-19] MEDS: Simvastatin 5 MG TAB PO SCH (21:07)
[2017-02-20 05:26] LABS: #Lymphocytes 0.9 thou/uL (1.20-3.40); #Monocytes 0.8 thou/uL (0.11-0.59); #Neutrophils 5.3 thou/uL (1.40-6.50); %Eosinophils 0.6 % (0.0-10.0); %Lymphocytes 12.5 % (21.0-51.0); %Monocytes 11.9 % (0.0-10.0); Hematocrit 32.8 % (36.0-47.0); Mean Platelet Volume 8.4 fL (7.4-10.4); Red Blood Cell (RBC) Count 3.87 mill/uL (4.20-5.40); White Blood Cell (WBC) Count 7.1 thou/uL (4.8-10.8)
[2017-02-20] MEDS: Meropenem 1 GM, Admixture Fee 1 EACH in Sodium Chloride 0.9% 100 ML IVPB SCH ×3 (05:33→20:46)
[2017-02-20] MEDS: Potassium Chloride 20 MEQ TAB PO SCH ×3 (05:33→18:06)
[2017-02-20] MEDS: Levothyroxine Sodium 50 MCG TAB PO SCH (05:33)
[2017-02-20 06:05] LABS: Anion Gap 12 mmol/L (10-20); BUN (Urea Nitrogen) 16 mg/dL (9.8-20.1); Calc. Creatinine Clearance 50 mL/min (70-130); Calcium 9.2 mg/dL (7.8-10.44); Carbon Dioxide 25 mmol/L (23-31); Chloride 101 mmol/L (98-107); Estimated GFR-MDRD 58
[2017-02-20] MEDS ORDERED: Heparin 10,000 UNITS/ 10 ML VIAL ONE (07:28)
[2017-02-20] MEDS: metFORMIN 500 MG TAB PO SCH ×2 (08:18→18:06)
[2017-02-20] MEDS: Amlodipine 10 MG TAB PO SCH (08:18)
[2017-02-20] MEDS: Metoprolol Tartrate 50 MG TAB PO SCH (08:18)
[2017-02-20] MEDS: Famotidine 20 MG TAB PO SCH ×2 (10:24→20:46)
[2017-02-20] MEDS: Acetaminophen 500 MG TAB PO PRN (12:30)
[2017-02-20] MEDS: HumaLOG 300 UNITS/3 ML VIAL SC PRN (12:32)
--- NOTE | 2017-02-20 14:40 | PDOC.PN ---
- Subjective Encounter Start Date: 02/20/17 Encounter Start Time: 08:45 -: old records requested/rev Patient seen and examined. No new complaints. No overnight events, no fever today - Objective Resuscitation Status: Resuscitation Status FULL:Full Resuscitation MAR Reviewed: Yes Vital Signs & Weight: Vital Signs (12 hours) Temp Pulse Resp BP BP Pulse Ox 02/20/17 11:40 97.9 F 92 18 137/80 94 L 02/20/17 08:18 95 139/86 02/20/17 08:00 98.7 F 95 18 96 02/20/17 07:46 98.7 F 95 18 139/86 96 Weight Weight 153 lb I&O: 02/19/17 02/20/17 02/21/17 06:59 06:59 06:59 Intake Total 720 2110 Output Total 1350 Balance -630 2110 Result Diagrams: 02/20/17 04:59 02/20/17 04:59 Additional Labs: Accuchecks 02/20/17 02/20/17 02/19/17 11:02 05:32 19:42 POC Glucose 174 H 153 H 162 H 02/19/17 02/19/17 16:46 11:37 POC Glucose 147 H 161 H Phys Exam - Physical Examination Constitutional: NAD HEENT: moist MMs Neck: no JVD, supple Respiratory: no wheezing, no rales, no rhonchi Cardiovascular: RRR, no significant murmur, no rub Gastrointestinal: soft, non-tender, no distention, positive bowel sounds Musculoskeletal: no edema, pulses present Neurological: non-focal, normal sensation, moves all 4 limbs Psychiatric: normal affect, A&O x 3 Skin: no rash, normal turgor Dx/Plan (1) Bacteremia due to Escherichia coli Code(s): R78.81 - BACTEREMIA Status: Acute (2) Sepsis Code(s): A41.9 - SEPSIS, UNSPECIFIED ORGANISM Status: Acute Qualifiers: Sepsis type: sepsis due to unspecified organism Qualified Code(s): A41.9 - Sepsis, unspecified organism (3) UTI (urinary tract infection) Status: Acute Qualifiers: Urinary tract infection type: acute pyelonephritis Qualified Code(s): N10 - Acute pyelonephritis Comment: right pyelonephritis (4) DM type 2 (diabetes mellitus, type 2) Status: Chronic Qualifiers: Diabetes mellitus complication status: with unspecified complications Diabetes mellitus snf insulin use: without intermodal customer service use Qualified Code( s): E11.8 - Type 2 diabetes mellitus with unspecified complications (5) Dyslipidemia Code(s): E78.5 - HYPERLIPIDEMIA, UNSPECIFIED Status: Chronic (6) HTN (hypertension) Code(s): I10 - ESSENTIAL (PRIMARY) HYPERTENSION Status: Chronic Qualifiers: Hypertension type: essential hypertension Qualified Code(s): I10 - Essential (primary) hypertension (7) Hypothyroidism Code(s): E03.9 - HYPOTHYROIDISM, UNSPECIFIED Status: Chronic Qualifiers: Hypothyroidism type: unspecified Qualified Code(s): E03.9 - Hypothyroidism , unspecified (8) h/o right breast cancer Status: Chronic Comment: with prior mastectomy in remission - Plan cont current plan of care, plan discussed w/ family, continue antibiotics, social media specialist * continue iv meropenam * if afebrile today, then will consider discharge tomorrow * arrange iv invanz for 10 more days * medication reviewed as below * symptomatic treatment * discussed with family bedside. Review of Systems - Review of Systems ENT: negative: Ear Pain, Ear Discharge, Nose Pain, Nose Discharge, Nose Congestion, Mouth Pain, Mouth Swelling, Throat Pain, Throat Swelling, Other Respiratory: negative: Cough, Dry, Shortness of Breath, Hemoptysis, SOB with Excertion, Pleuritic Pain, Sputum, Wheezing Cardiovascular: negative: Chest Pain, Palpitations, Orthopnea, Paroxysmal Noc. Dyspnea, Edema, Light Headedness, Other Gastrointestinal: negative: Nausea, Vomiting, Abdominal Pain, Diarrhea, Constipation, Melena, Hematochezia, Other Genitourinary: negative: Dysuria, Frequency, Incontinence, Hematuria, Retention , Other Musculoskeletal: negative: Neck Pain, Shoulder Pain, Arm Pain, Back Pain, Hand Pain, Leg Pain, Foot Pain, Other - Medications/Allergies Allergies/Adverse Reactions: Allergies Allergy/AdvReac Type Severity Reaction Status Date / Time No Known Drug Allergies Allergy Verified 02/16/17 23:16 Medications: Current Medications Acetaminophen (Tylenol) 1,000 mg PO Q6H PRN PRN Reason: Headache/Fever or Pain Last Admin: 02/20/17 12:30 Dose: 1,000 mg Hydrocodone Bitart/Acetaminophen ([place] 10/325) 1 tab PO Q4H PRN PRN Reason: Severe Pain (7-10) Hydrocodone Bitart/Acetaminophen ([place] 5/325) 1 tab PO Q4H PRN PRN Reason: Moderate Pain (4-6) Last Admin: 02/17/17 19:30 Dose: 1 tab Amlodipine Besylate (Norvasc) 10 mg PO DAILY [facility] Last Admin: 02/20/17 08:18 Dose: 10 mg Dextrose/Water (Dextrose 50%) 25 gm SLOW IVP PRN PRN PRN Reason: Hypoglycemia Famotidine (Pepcid) 20 mg PO BID [facility] Last Admin: 02/20/17 10:24 Dose: 20 mg Glucagon (Glucagon) 1 mg IM PRN PRN PRN Reason: Hypoglycemia Dextrose/Water (D5w) 1,000 mls @ 0 mls/hr IV .Q0M PRN; As Directed PRN Reason: Hypoglycemia Meropenem 1 gm/ Miscellaneous Medication 1 each/ Sodium Chloride 100 mls @ 200 mls/hr IVPB Q8HR [facility] Last Admin: 02/20/17 14:20 Dose: 100 mls Insulin Human Lispro (Humalog) 0 units SC .MILD SLIDING SCALE PRN PRN Reason: Mild Correctional Scale Last Admin: 02/20/17 12:32 Dose: 2 unit Levothyroxine Sodium (Synthroid) 50 mcg PO 0600 [facility] Last Admin: 02/20/17 05:33 Dose: 50 mcg Metformin HCl (Glucophage) 500 mg PO BID[facility] Last Admin: 02/20/17 08:18 Dose: 500 mg Metoprolol Tartrate (Lopressor) 50 mg PO DAILY [facility] Last Admin: 02/20/17 08:18 Dose: 50 mg Olmesartan (Benicar) 40 mg PO DAILY [facility] Last Admin: 02/20/17 08:20 Dose: 40 mg Ondansetron HCl (Zofran Odt) 4 mg PO Q6H PRN PRN Reason: Nausea/Vomiting Potassium Chloride (K-Dur) 40 meq PO Q6HR [facility] Stop: 02/20/17 18:01 Last Admin: 02/20/17 12:30 Dose: 40 meq Simvastatin (Zocor) 10 mg PO HS [facility] Last Admin: 02/19/17 21:07 Dose: 10 mg Sodium Chloride (Flush - Normal Saline) 10 ml IVF Q12HR [facility] Last Admin: 02/20/17 08:20 Dose: 10 ml Sodium Chloride (Flush - Normal Saline) 10 ml IVF PRN PRN PRN Reason: Saline Flush
[2017-02-20] MEDS: Simvastatin 5 MG TAB PO SCH (20:46)
[2017-02-21] MEDS: Meropenem 1 GM, Admixture Fee 1 EACH in Sodium Chloride 0.9% 100 ML IVPB SCH ×2 (05:20→12:46)
[2017-02-21] MEDS: Levothyroxine Sodium 50 MCG TAB PO SCH (05:21)
[2017-02-21] MEDS: Amlodipine 10 MG TAB PO SCH (09:27)
[2017-02-21] MEDS: metFORMIN 500 MG TAB PO SCH (09:27)
[2017-02-21] MEDS: Metoprolol Tartrate 50 MG TAB PO SCH (09:28)
[2017-02-21] MEDS: Famotidine 20 MG TAB PO SCH (09:28)
[2017-02-21 09:31] VITALS: BP 135/85
[2017-02-21 10:30] VITALS: TEMP 98.3
--- NOTE | 2017-02-21 11:31 | DIS ---
DATE OF ADMISISON: 02/16/2017 DATE OF DISCHARGE: 02/21/2017 PRIMARY CARE PHYSICIAN: [facility] DISCHARGE DISPOSITION: Home. PRIMARY DISCHARGE DIAGNOSES: Urinary tract infection due to Escherichia coli bacteremia due to Esch erichia coli sepsis. SECONDARY DISCHARGE DIAGNOSES: 1. Diabetes type 2. 2. Dyslipidemia. 3. Hypertension. 4. Hypothyroidism. 5. Obesity with BMI of 30. PRIMARY PROCEDURE/OPERATION: PICC line placement. RADIOLOGICAL INVESTIGATION: Chest x-ray normal. Abdomen and pelvis CT scan showed pyelonephritis, lumbar spondylosis. SIGNIFICANT LABORATORY DATA: WBC 7.1, hemoglobin 10.8, platelet 190, creatinine 0.92. Electrolytes normal. Blood culture positive for E. coli. Urine culture negative. DISCHARGE MEDICATIONS: Patient will have Invanz 1 gram IV daily till 03/03/2017. The patient will continue following medication: Tylenol Arthritis as directed, Fosamax 70 mg every week, multivitami n 1 tablet p.o. daily, Synthroid 50 mcg p.o. daily, metoprolol 50 mg p.o. daily, Benicar with hydro chlorothiazide 1 tablet p.o. daily, Zocor 10 mg p.o. daily, amlodipine 10 mg p.o. daily, Metformin 5 00 mg p.o. b.i.d. CONTRAINDICATIONS: None. CODE STATUS: FULL CODE. INPATIENT CONSULTANTS: Dr. Downey was following while in hospital. Dr. Mickey Diaz was consulted while in hospital. TEST RESULTS PENDING ON DISCHARGE: None. ALLERGIES: No known drug allergy. DISCHARGE PLAN: Post hospital, the patient will follow up with Dr. Mickey Diaz on 03/18/2017 at 1 0:45 a.m. Patient will follow up with Dr. Downey. The patient will get IV antibiotic therapy [facility]. HOSPITAL COURSE: An 86-year-old female with above-mentioned medical problem who was admitted by Dr. Yefri Og on 02/17/2017. Please see his H\T\P for further details. Patient was having fever and chills. She was diagnosed with urinary tract infection and subsequently her blood culture was also positive for E. coli. On admission, she was meeting sepsis criteria. She was admitted to medical floor. She was treated with broad spectrum antibiotic therapy with meropenem and her culture was pr ernesto much multidrug resistant and that is why she required IV antibiotic therapy. Dr. Downey recomme nded to put her PICC line and continue IV Invanz therapy till 03/03/2017. With the help of case man charlier, we arranged outpatient IV antibiotic therapy. After getting appropriate antibiotic therapy, t he patient was not having any further fever. Urology recommended outpatient followup. The patient is seen and examined at bedside today. All review of systems reviewed with her and carly omhan. PHYSICAL EXAMINATION: VITAL SIGNS: Currently, temperature 98.3, pulse 97, respiratory rate 20, saturation 94%, blood pres sure 140/65 and weight 153 pounds. GENERAL: The patient is currently alert, awake, no acute distress. HEAD: Normocephalic, atraumatic. LUNGS: Clear. CARDIAC: S1, S2 regular without any murmur. ABDOMEN: Soft and benign. EXTREMITIES: No edema. NEUROLOGIC: Nonfocal examination. Overall, the patient is medically stable for discharge today.
== END 2017-02-21 13:27 | disposition home or self-care (01) | DRG 872 ==
LOC: SCSER 17:19 → 2NO 20:00 → T4-B 02-18 18:13
PROVIDERS: ADMIT Internal Medicine Addiction Medicine; ATTEND Internal Medicine Addiction Medicine
PROC: 06H033Z Insertion of Infusion Device into Inferior Vena Cava, Percutaneous Approach (ICD-10-PCS; principal; 2017-02-19)
DX: A41.51 Sepsis due to Escherichia coli [E. coli] (principal); E11.9 Type 2 diabetes mellitus without complications; N10 Acute pyelonephritis; I10 Essential (primary) hypertension; Z79.84 Long term (current) use of oral hypoglycemic drugs; E78.5 Hyperlipidemia, unspecified; E03.9 Hypothyroidism, unspecified; M85.80 Other specified disorders of bone density and structure, unspecified site; Z85.3 Personal history of malignant neoplasm of breast; E66.9 Obesity, unspecified; Z68.30 Body mass index [BMI] 30.0-30.9, adult; R32 Unspecified urinary incontinence
CPT/HCPCS: 36415; 36416; 36569; 71010; 74176; 80048; 80053; 81003; 81015; 83605; 85025; 87040; 87077; 87086; 87149; 87186; 93005; 96365; 96367; A4216; C1751; G8978-GP-CJ; G8979-GP-CJ; G8980-GP-CJ; G8987-GO-CI; G8988-GO-CI; G8989-GO-CI; J0692; J0696; J1644; J2185; J3370; J7050

== ENCOUNTER 2017-03-26 09:38 | Outpatient (CLI) | payer MEDICARE ==
[~2017-03-26 09:38] MED LIST: Iopamidol 370 76% 50 ML VIAL FS ONE
[2017-03-26 10:54] LABS: Anion Gap 14 mmol/L (10-20); BUN (Urea Nitrogen) 29 mg/dL (9.8-20.1); Calc. Creatinine Clearance 0 mL/min (70-130); Carbon Dioxide 27 mmol/L (23-31); Chloride 100 mmol/L (98-107); Estimated GFR-MDRD 45
--- NOTE | 2017-03-26 15:34 | CT ---
CT ABDOMEN WITH AND WITHOUT IV CONTRAST CT PELVIS WITH AND WITHOUT IV CONTRAST: Date: 03-26-17 History: Disorder or urinary tract. Patient had right flank pain and E coli bacteremia on study of . That examination also demonstrated asymmetric perinephric stranding. Comparison: 02-17-17 FINDINGS: There is calcification of the mitral valve annular. Coronary artery calcifications are present with d ense vascular calcifications also seen within the abdominal aorta and involving the iliac arteries. T here is curvilinear calcification seen in the lumen of the infrarenal abdominal aorta which appears t o represent a focal thrombosed aneurysm or either focal dissection which is thrombosed. The heart is mildly enlarged. There is mild bibasilar atelectasis. Post cholecystectomy changes are noted. There are hyperdense bilateral renal lesions demonstrating an attenuation coefficient most compatible with renal cysts, also seen on prior exam. No renal or ureteral calculi are seen bilaterally and there is no evidence of an enhancing renal mass . No hydronephrosis is present bilaterally. The urinary bladder is partially distended and has a normal CT appearance. There is mild prominence o f the right renal pelvis likely related to an extrarenal pelvis with nonspecific caliectasis bilatera lly. Again, there is no overt hydronephrosis identified. Urinary bladder has a grossly normal CT appearance. Calcifications are seen in the uterus, probably related to uterine fibroids with vascular calcificati ons also adjacent to the uterus. There is a low density area seen in a subcapsular location involving the body of the spleen. This may be related to remote subcapsular hematoma. Spleen otherwise has a normal appearance. The liver, panc reas, and bilateral adrenal glands demonstrate a normal CT appearance. Severe degenerative changes are seen in the lumbar spine. There is severe narrowing of the central sp inal canal at the L4-5 level due to prominent facet hypertrophic changes and posterior osteophyte for mation and associated disc bulge. IMPRESSION: 1. Bilateral renal cysts. No enhancing renal mass is seen, and there are no renal or ureteral calculi present. There is mild pelvocaliectasis on the right which is nonspecific. 2. Cardiomegaly. 3. Post cholecystectomy changes. 4. Dense vascular calcifications. 5. Prominent degenerative changes in the lumbar spine. 6. Small amount of retained fecal material seen throughout the colon. POS: [facility]
== END 2017-03-26 09:39 | disposition home or self-care (01) ==
LOC: CT 09:38
PROVIDERS: ATTEND Urology
DX: N39.9 Disorder of urinary system, unspecified (principal); N28.1 Cyst of kidney, acquired; K59.00 Constipation, unspecified; Z90.49 Acquired absence of other specified parts of digestive tract
CPT/HCPCS: 36415; 74178; 80048

== ENCOUNTER 2017-05-21 08:44 | Outpatient (CLI) | payer MEDICARE ==
--- NOTE | 2017-05-21 11:08 | CT ---
CT THORAX NONCONTRAST: DATE: 05-21-17 HISTORY: 86-year-old female for follow up of solitary pulmonary nodule. COMPARISON: 04-12-16, 01-10-[address]'s; and abdominal CT of 04-29-14. FINDINGS: The 4 x 4 x 3 mm noncalcified pulmonary nodule at the posterior lateral aspect of the right lower lob e close to pleural surface (axial image 33 of 53, series 3; coronal image 111 of 135, series 601), olmedo s been stable since the abdominal CT of 04-29-14. The noncalcified 6 x 4 x 3 mm pulmonary nodule in the right middle lobe (axial image 29 of 53, series 3; coronal image 44 of 135, series 601), has also been stable since 04-29-14. There are no new pulmonary nodules. There are chronic-appearing mild, small areas of pulmonary parenc hymal densities around the perivertebral spaces in the lower lobes, especially on the right, and also to a lesser degree surrounding the descending aorta in the left, consistent with chronic scarring. N o pleural effusion. Coronary artery atherosclerotic calcification. Atherosclerotic calcification, ect wili, and tortuosity of the thoracic aorta. No pleural effusion or pneumothorax. Absence of right ailin ast tissue. Previously described old compression fracture of T7 as demonstrated on the 04-12-16 CT. M ultilevel high grade degenerative disc disease in the thoracic spine. Levoscoliosis with apex of curv ature near the thoracolumbar junction. No major interval change overall compared to 04-12-16. IMPRESSION: 1. Right middle lobe 6 mm pulmonary nodule is unchanged since 04-29-14, and is benign. Based on its sha pe, this probably an intrapulmonary lymph node. 2. The 4 mm nodule in the right lower lobe is stable since 04-29-14 and is also benign. 3. Thoracic spondylosis. 4. Coronary atherosclerotic disease. 5. Atherosclerosis and ectasia of thoracic aorta. 6. No evidence of neoplasm. 7. Status post right mastectomy. YAHIR Thomas POS: [facility]
== END 2017-05-21 08:45 | disposition home or self-care (01) ==
LOC: CT 08:44
PROVIDERS: ATTEND Internal Medicine Critical Care Medicine
DX: R91.8 Other nonspecific abnormal finding of lung field (principal); M47.894 Other spondylosis, thoracic region; I25.10 Atherosclerotic heart disease of native coronary artery without angina pectoris; I70.0 Atherosclerosis of aorta; I77.810 Thoracic aortic ectasia; Z90.11 Acquired absence of right breast and nipple
CPT/HCPCS: 71250

== ENCOUNTER 2018-03-10 10:24 | Outpatient (CLI) | payer MEDICARE ==
--- NOTE | 2018-03-10 14:31 | MRI ---
MRI LUMBAR SPINE WITHOUT CONTRAST: HISTORY: Spondylolisthesis. Continued low back pain since 2002. COMPARISON: None. TECHNIQUE: MRI lumbar spine is performed without intravenous Gadolinium administration. Multisequential, multip lanar imaging was performed. FINDINGS: There is appropriate T1 marrow signal intensity of the lumbar vertebrae. Lumbar spine vertebral body height is maintained and there is no fracture. There is no significant STIR hyperintensity to sugge st vertebral body edema or ligamentous injury. There is leftward curvature of the distal thoracic and upper lumbar spine. Bilateral parapelvic cysts are noted. There are T2 hyperintensities in the left and right renal jones ex likely representing bilateral cortical cysts. The largest T2 hyperintensity is in the lower pole of the right kidney measuring 2.3 x 2.6 cm. Symmetric signal intensity of the psoas muscles. Conus medullaris terminates at the superior aspect of L1. 2.3 mm of retrolisthesis of T11 upon T12. 4.6 mm of retrolisthesis of L1 upon L2. 3.5 mm anterolist hesis of L3 upon L4. 8.7 mm anterolisthesis of L4 upon L5. 6 mm anterolisthesis of L5 upon S1. T11-T12: Desiccation with severe loss of disk space height. Mild central canal stenosis. Severe ri ght foraminal narrowing. The left neural foramen is patent. T12-L1: Desiccation with mild loss of disk space height. No high-grade central canal stenosis. Sev ere right and moderate to severe left foraminal narrowing. L1-L2: Desiccation with mild loss of disk space height. Generalized disk bulge, ligamentum flavum t hickening, and facet hypertrophy result in mild central canal stenosis. Moderate right and moderate left foraminal narrowing. L2-L3: Adequate disk hydration. Generalized disk bulge, ligamentum flavum thickening, and facet hyp ertrophy result in moderate central canal stenosis. There is fluid in both facet joints. Mild right and moderate left foraminal narrowing. L3-L4: There is disk desiccation without significant loss of disk space height. Broad-based disk bu lge, ligamentum flavum thickening, and facet hypertrophy result in moderate to severe central canal s tenosis. There is fluid in both facet joints. Mild to moderate right and moderate left neural neha inal narrowing. L4-L5: Desiccation without significant loss of disk space height. Generalized disk bulge, ligamentu m flavum thickening, and facet hypertrophy result in severe central canal stenosis. Mild bilateral f oraminal narrowing. L5-S1: Desiccation without significant loss of disk space height. No significant central canal sten osis. Right neural foramen is patent. Mild left foraminal narrowing. There is leftward curvature of the distal thoracic and upper lumbar spine. Minimal compensatory righ tward curvature of the lower lumbar spine. IMPRESSION: 1. 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 2. There is sever central canal stenosis at L4-L5. Moderate to severe central spinal canal stenosis at L3-L4. Extensive facet hypertrophy. 3. Varying degrees of foraminal stenosis as detailed above. POS: [facility]
== END 2018-03-10 10:25 | disposition home or self-care (01) ==
LOC: BICMRI 10:24
PROVIDERS: ATTEND Specialist
DX: M43.16 Spondylolisthesis, lumbar region (principal); M41.9 Scoliosis, unspecified; M48.061 Spinal stenosis, lumbar region without neurogenic claudication; M99.82 Other biomechanical lesions of thoracic region; M99.83 Other biomechanical lesions of lumbar region; M99.84 Other biomechanical lesions of sacral region
CPT/HCPCS: 72148

== ENCOUNTER 2018-05-14 08:47 | Outpatient (CLI) | payer MEDICARE ==
--- NOTE | 2018-05-14 10:23 | CT ---
CT CHEST WITHOUT CONTRAST: Comparison: 05-21-17, 10-21-15 History: Pulmonary nodules. Technique: Multiple contiguous axial images were obtained in a CT of the chest without contrast. Wendy nal reformats were performed. FINDINGS: There is stable nodular opacities in the right middle lobe and right lower lobe on images 30 and 35. These have not changed dating back to 2016. No new pulmonary nodules are seen. No pneumothorax or ple ural effusion are seen. The heart is enlarged. Calcifications are seen in the coronary arteries and aorta. Calcifications are seen in the mitral valve. No hilar or mediastinal lymphadenopathy are seen. The patient is status post cholecystectomy. The visualizes subdiaphragmatic structures are unremarkab le. Degenerative changes are seen in the spine. The chest wall soft tissues are unremarkable. IMPRESSION: Stable areas of pulmonary nodules. These have been stable for greater than 2 years and no further fol low up of these nodules is necessary. POS: [facility]
== END 2018-05-14 08:48 | disposition home or self-care (01) ==
LOC: CT 08:47
PROVIDERS: ATTEND Internal Medicine Critical Care Medicine
DX: R91.1 Solitary pulmonary nodule (principal); R91.8 Other nonspecific abnormal finding of lung field
CPT/HCPCS: 71250

== ENCOUNTER 2018-07-31 07:38 | Outpatient (CLI) | payer MEDICARE ==
--- NOTE | 2018-07-31 08:51 | MRI ---
[facility] lumbar spine noncontrast: HISTORY: Compression fracture of L1. Patient fell last month. COMPARISON: 03/10/2018 FINDINGS: Mild loss of vertebral body height with associated T1 marrow signal hypointensity and edema, at L1. F indings are compatible with a acute compression fracture. No significant retropulsion. The remainder of the lumbar vertebra of appropriate T1 marrow signal intensity. 4.3 mm of anterolisthesis of L3 upon L4, 9 mm anterolisthesis of L4 upon L5, 4 mm anterolisthesis of L5 upon S1. T2 hyperintensities in the left or right renal pelvis as well as cortices compatible with parapelvic and cortical cysts. Findings are unchanged. Symmetric signal intensity of the paraspinal muscles. There is atrophy involving bilateral posterior paraspinal muscles, left greater than right. Conus medullaris terminates at the mid L1 level T11-T12: Moderate severe loss of disc space. T12-L1:Desiccation with mild loss of disc space height. Generalized disc bulge, posterior element hyp ertrophy results in mild central canal stenosis. Severe right and left foraminal narrowing. L1-2:Desiccation with mild loss of disc space height. Generalized disc bulge, ligament flavum thicken ing and facet hypertrophy result in mild central canal stenosis. Moderate right and left foraminal na rrowingg. L2-3:Desiccation with mild to moderate loss of disc space height. Broad-based disc bulge, ligament fl avum thickening and facet hypertrophy result in moderate central canal stenosis. Right neural foramen is patent. Mild to moderate left foraminal narrowing. L3-4:Desiccation with mild loss of disc space height. Broad-based disc bulge, ligament flavum thicken ing and facet hypertrophy result in moderate central canal stenosis. Moderate bilateral facet hypertr ophy with fluid in both facet joints. Mild right and moderate left foraminal narrowing. L4-5:Desiccation with moderate loss of disc space height. Broad-based disc bulge, ligament flavum thi ckening and facet hypertrophy along with spondylolisthesis results in severe central canal stenosis. Mild bilateral foraminal narrowing. L5-S1:Desiccation with mild loss of disc space height. No significant central canal stenosis. Moderat e bilateral facet hypertrophy. Neural foramina are patent. IMPRESSION: 1. Mild acute compression fracture at L1. 2. Spondylolisthesis as above. 3. Severe central canal stenosis at L4-L5. Transcribed Date/Time: 07/31/2018 9:39 AM
== END 2018-07-31 07:39 | disposition home or self-care (01) ==
LOC: BICMRI 07:38
PROVIDERS: ATTEND Nurse Practitioner Family
DX: S32.019A Unspecified fracture of first lumbar vertebra, initial encounter for closed fracture (principal); M43.16 Spondylolisthesis, lumbar region; M48.061 Spinal stenosis, lumbar region without neurogenic claudication
CPT/HCPCS: 72148

== ENCOUNTER 2018-08-07 02:00 | Inpatient (IN) | payer MEDICARE ==
[2018-08-07 02:56] LABS: Hemoglobin 11.5 g/dL (12.0-16.0); Mean Corpuscular HGB CONC 34.7 g/dL (32.0-36.0); Mean Corpuscular Hemoglobin 30.8 pg (27.0-31.0); Mean Corpuscular Volume 88.9 fL (78.0-98.0); Mean Platelet Volume 7.5 fL (7.4-10.4); Platelet Count 221 thou/uL (130-400); Red Blood Cell (RBC) Count 3.73 mill/uL (4.20-5.40); White Blood Cell (WBC) Count 16.6 thou/uL (4.8-10.8)
[2018-08-07 03:06] LABS: Bilirubin Negative (Negative); Blood, Urine Trace (Negative); Clarity CLEAR (Clear); Glucose, Urine (Dipstick) Negative (Negative); Leukocyte Moderate (Negative); Nitrite Negative (Negative); Protein, Urine (Dipstick) Negative (Neg-Trace); Specific Gravity, Urine 1.005 (1.002-1.036); Urobilinogen 0.2 mg/dL (0.2-1.0); pH, Urine 6.5 (5.0-9.0)
[2018-08-07 03:07] LABS: Band 16 % (5-11); Lymphocytes 4 % (21-51); MDiff Complete? YES; Monocytes 2 % (0-10); Neutrophil 78 % (42-75); Platelet Morphology Comment Appears Adequate
[2018-08-07 03:09] LABS: Bacteria/HPF 1+ HPF (None Seen); Hyaline Casts/LPF 0-3 HYALINE CAST LPF (0-3 Hyaline); RBC/HPF 0-3 HPF (0-3); Squamous Epithelial 0-3 HPF (0-3)
[2018-08-07 03:10] LABS: ALT (SGPT) 23 U/L (8-55); AST (SGOT) 24 U/L (5-34); Albumin 3.8 g/dL (3.4-4.8); Alkaline Phosphatase 56 U/L (40-150); Anion Gap 18 mmol/L (10-20); BUN (Urea Nitrogen) 17 mg/dL (9.8-20.1); Bilirubin, Total 0.7 mg/dL (0.2-1.2); Calc. Creatinine Clearance 0 mL/min (70-130); Carbon Dioxide 21 mmol/L (23-31); Chloride 93 mmol/L (98-107); Estimated GFR-MDRD 66; Glucose 140 mg/dL (83-110); Lipase 16 U/L (8-78); Potassium 3.1 mmol/L (3.5-5.1); Protein, Total 6.8 g/dL (6.0-8.3); Sodium 129 mmol/L (136-145)
[2018-08-07] MEDS ORDERED: cefTRIAXone\\ROCEPHIN 2 GM VIAL ONE (03:42)
[2018-08-07 06:58] LABS: Lactic Acid 2.5 mmol/L (0.5-2.2)
--- NOTE | 2018-08-07 07:01 | CT ---
CT ABDOMEN AND PELVIS WITH CONTRAST: Date: 08/07/18 COMPARISON: 03/26/17. INDICATION: Pain. FINDINGS: There is mild atelectasis at the lung bases. There is severe distention of the urinary bladder. There is resultant moderate right hydronephrosis with perinephric fluid and generalized mild distention th roughout the course of the right ureter. No discrete urinary tract calculi are visualized. There are calcifications in the pelvis, which relate to the uterus and vasculature. Calcified fibroid uterus is present. Prior cholecystectomy with reservoir effect involving the biliary system. Redemonstration of bilatera l renal parenchymal hypodensities. There is a stable area of vague peripheral hypodensity of the sple en, which could relate to sequelae from a remote subcapsular insult/hematoma. No adrenal mass. Pancre as is unremarkable. The bowel is incompletely assessed without enteric contrast. There is moderate re tained fecal material in the colon. Stable appearing vascular disease, diffusely. L1 compression defo rmity is present, as was depicted on a recent MRI exam. IMPRESSION: Severe distention of urinary bladder. There is moderate right hydronephrosis, which may relate to ref lux from the distended urinary bladder as a discrete, intrinsic calculus is not visualized. Recommend clinical correlation in this regard. Upon resolution of the urinary bladder distention, renal ultras ound may be performed to confirm resolution of the hydronephrosis. Additional findings are detailed above. POS: [facility]
[2018-08-07] MEDS ORDERED: Sodium Chloride 0.9% 1,000 ML IV SCH (10:05)
[2018-08-07] MEDS ORDERED: Acetaminophen 325 MG TAB PO PRN (10:05)
[2018-08-07] MEDS ORDERED: Dextrose 50% Abboject 50 ML SYRINGE SLOW IVP PRN (10:18)
[2018-08-07] MEDS ORDERED: Dextrose 5% in Water 1,000 ML IV PRN (10:18)
[2018-08-07] MEDS ORDERED: Promethazine HCl 25 MG/ML VIAL ONE (12:52)
[2018-08-07] MEDS ORDERED: ISOVUE-370 76%-LOCM 1 ML ONE (13:50)
[2018-08-07] MEDS: HYDROcodone/Acetaminophen 5/325 mg Tablet PO PRN (14:26)
[2018-08-07] MEDS: Famotidine 20 MG TAB PO SCH ×2 (14:27→20:40)
[2018-08-07 15:00] VITALS: BMI 25.6
--- NOTE | 2018-08-07 16:53 | HP ---
PRIMARY CARE PHYSICIAN: Dr. Giraldo. CHIEF COMPLAINT: Fever. HISTORY OF PRESENT ILLNESS: The patient is an 88-year-old woman with a past medical history of diabetes type 2, hypertension, hypothyroidism, who was brought into the ER overnight with fever. The history was mostly obtained from the patient's son. He states that she had a fever last night of 103 and had shaking chills. She herself denies any dysuria. She has some epigastric discomfort. She has no nausea, vomiting, or diarrhea. Recently, she was treated for UTI. Her urine culture in June showed E coli. This was pretty sensitive except to Cipro. In the ER, the patient did have evidence of UTI, but she also had a CAT scan that showed severe distention of her bladder with moderate right hydronephrosis, which could be reflux from the distended bladder. The patient denies any difficulty emptying her bladder. The son states that she has seen a urologist in the past, but he does not know why or the name of the urologist. REVIEW OF SYSTEMS: All systems were reviewed, pertinent positives and negatives as above. PAST MEDICAL HISTORY: 1. Diabetes type 2. 2. Hypertension. 3. Hypothyroidism. PAST SURGICAL HISTORY: 1. Bilateral total knee arthroplasties. 2. Appendectomy. 3. Right mastectomy for breast cancer. She said she did not require any chemo or radiation. ALLERGIES: NONE. HOME MEDICATIONS: 1. Metformin 500 mg twice a day. 2. Amlodipine 10 mg daily. 3. Simvastatin 10 mg daily. 4. Olmesartan/hydrochlorothiazide 40/25 daily. 5. Metoprolol tartrate 50 mg daily. 6. Levothyroxine 50 mcg daily. 7. Fosamax weekly. 8. Tylenol as needed. This is a preliminary list. FAMILY HISTORY: Her parents of old age. SOCIAL HISTORY: No tobacco or alcohol. Her son lives with her and she wants to be a full code. PHYSICAL EXAMINATION: VITAL SIGNS: Afebrile, blood pressure 101/55, pulse of 104, respiratory rate 20, and oxygen saturation 94% on 2 L. GENERAL: No apparent distress. Alert and oriented x3. HEENT: Pupils are equal, round, and reactive to light. Extraocular movements intact. Sclerae are anicteric. Oral mucosa clear without lesions. Good dentition. NECK: Supple. No lymphadenopathy. No JVD. Thyroid is not enlarged. Trachea is midline. CARDIOVASCULAR: Regular rate and rhythm. Normal S1 and S2. No murmurs, rubs, or gallops. CHEST: Clear to auscultation bilaterally with good effort. No distress. No wheezes or rhonchi. ABDOMEN: Soft, nontender, nondistended. Normoactive bowel sounds. No hepatosplenomegaly. EXTREMITIES: No cyanosis, clubbing, or edema. Normal range of motion. SKIN: Warm, dry, and intact. No lesions or rashes. PSYCHIATRIC: Appropriate mood and affect. NEUROLOGIC: Cranial nerves and DTRs are intact. LABORATORY DATA: Sodium of 129, potassium of 3.1, chloride of 93, bicarbonate of 21, BUN of 17, creatinine of 0.82. White count of 16.6, hemoglobin of 11.5, platelet count of 221. Lactic acid level was 4.2, then went down to 2.5. Urinalysis shows negative nitrite, but moderate leukocyte esterase. DIAGNOSTIC DATA: CT as above. EKG reviewed by me. Her initial one shows sinus tachycardia with a rate of 128 and right bundle-branch block. ASSESSMENT AND PLAN: 1. Urinary tract infection with sepsis, present on admission. Her lactic acid level has improved with IV fluids. The patient's isolate in June was Escherichia coli and that was pretty sensitive. I am going to give her ceftriaxone for now. She was given ceftriaxone and vancomycin in the ER. Follow up on urine cultures. 2. Urinary retention. This is likely the cause of her recurrent urinary tract infection. She needs to see Urology. I have asked the son to find out the name of the urologist that she has seen and once we get this information, we can consult that urologist. She has a Murray catheter in for now. 3. Hypokalemia. Replace with oral potassium and repeat level. 4. Diabetes type 2. Continue following Accu-Cheks. I am going to hold her metformin for now. 5. Hypertension. Continue her home medications once they are accurately reconciled. 6. Hypothyroidism. Continue her thyroid replacement medications. 7. Deep venous thrombosis prophylaxis with Lovenox. Job ID: [id number]
[2018-08-08] MEDS: cefTRIAXone\\ROCEPHIN 1 GM in Sodium Chloride 0.9% 100 ML IVPB SCH (04:17)
[2018-08-08 07:17] LABS: #Eosinphils 0.1 thou/uL (0.0-0.7); #Lymphocytes 1.1 thou/uL (1.20-3.40); #Monocytes 0.7 thou/uL (0.11-0.59); #Neutrophils 9.1 thou/uL (1.40-6.50); %Basophils 0.3 % (0.0-1.0); %Eosinophils 0.9 % (0.0-10.0); %Lymphocytes 9.8 % (21.0-51.0); %Monocytes 6.3 % (0.0-10.0); %Neutrophils 82.7 % (42.0-75.0); Hemoglobin 11.5 g/dL (12.0-16.0); Mean Corpuscular HGB CONC 32.7 g/dL (32.0-36.0); Mean Corpuscular Hemoglobin 30.3 pg (27.0-31.0); Mean Corpuscular Volume 92.6 fL (78.0-98.0); Mean Platelet Volume 7.9 fL (7.4-10.4); Platelet Count 175 thou/uL (130-400); RBC Distribution Width 13.4 % (11.5-14.5); Red Blood Cell (RBC) Count 3.81 mill/uL (4.20-5.40)
[2018-08-08 07:35] LABS: Anion Gap 15 mmol/L (10-20); BUN (Urea Nitrogen) 13 mg/dL (9.8-20.1); Calc. Creatinine Clearance 55 mL/min (70-130); Calcium 9.3 mg/dL (7.8-10.44); Carbon Dioxide 23 mmol/L (23-31); Chloride 99 mmol/L (98-107); Estimated GFR-MDRD 74; Glucose 137 mg/dL (83-110); Potassium 3.1 mmol/L (3.5-5.1); Sodium 134 mmol/L (136-145)
[2018-08-08] MEDS: Famotidine 20 MG TAB PO SCH ×2 (07:59→20:56)
[2018-08-08] MEDS: Enoxaparin Sodium 40 MG/0.4 ML SYRINGE SC SCH (07:59)
[2018-08-08] MEDS: HYDROcodone/Acetaminophen 5/325 mg Tablet PO PRN ×3 (09:31→20:56)
--- NOTE | 2018-08-08 10:45 | PDOC.PN ---
- Subjective Encounter Start Date: 08/08/18 Encounter Start Time: 10:44 Patient seen and examined, no new issues or complaints. - Objective Resuscitation Status - Order Detail: 08/07/18 09:10 Resuscitation Status Routine Resuscitation Status: FULL: Full Resuscitation Vital Signs & Weight: Vital Signs (12 hours) Temp Pulse Resp BP Pulse Ox 08/08/18 08:03 92 L 08/08/18 07:56 93 L 08/08/18 07:41 97.9 F 103 H 18 130/82 91 L 08/08/18 05:52 98.2 F 87 16 149/94 H 91 L 08/08/18 00:01 98.3 F 83 16 147/80 H 92 L Weight Weight 140 lb 1 oz I&O: 08/07/18 08/08/18 08/09/18 06:59 06:59 06:59 Intake Total 1140 Output Total 3825 Balance -2685 Result Diagrams: 08/08/18 06:45 08/08/18 06:45 Additional Labs: Accuchecks 08/08/18 08/07/18 08/07/18 05:53 21:06 15:38 POC Glucose 145 H 145 H 140 H Phys Exam - Physical Examination Constitutional: NAD HEENT: PERRLA, moist MMs, sclera anicteric Neck: no nodes, no JVD, supple Respiratory: no wheezing, no rales, no rhonchi Cardiovascular: RRR, no significant murmur, no rub Gastrointestinal: soft, non-tender, no distention Musculoskeletal: no edema, pulses present Dx/Plan (1) Bacteremia due to Escherichia coli Code(s): R78.81 - BACTEREMIA Status: Acute (2) Sepsis Code(s): A41.9 - SEPSIS, UNSPECIFIED ORGANISM Status: Acute Qualifiers: (3) UTI (urinary tract infection) Status: Acute Qualifiers: Comment: right pyelonephritis (4) DM type 2 (diabetes mellitus, type 2) Status: Chronic Qualifiers: (5) Dyslipidemia Code(s): E78.5 - HYPERLIPIDEMIA, UNSPECIFIED Status: Chronic (6) HTN (hypertension) Code(s): I10 - ESSENTIAL (PRIMARY) HYPERTENSION Status: Chronic Qualifiers: (7) Hypothyroidism Code(s): E03.9 - HYPOTHYROIDISM, UNSPECIFIED Status: Chronic Qualifiers: - Plan * will consult ID given bacteremia, C&S pending * cont abx for now, subjective improvement per family and patient * continue physical therapy * labs in AM * cultures pending * case and plan d/w patient and family at length, they understood and agreed with this plan.
[2018-08-08] MEDS: HumaLOG 300 UNITS/3 ML VIAL SC PRN ×2 (12:28→17:55)
--- NOTE | 2018-08-08 21:51 | CON ---
DATE OF CONSULTATION: 08/08/2018 REASON FOR CONSULTATION: Bacteremia and urinary tract infection. HISTORY OF PRESENT ILLNESS: Ms. Alexandre is an 88-year-old patient, whom I had seen in the past, who has a history of type 2 diabetes, urinary incontinence, breast cancer, and recurrent UTIs. I saw her in January of 2017 when she presented with E. coli bacteremia with ESBL E. coli. At this time, she developed chills and fever , but did not have any overt urinary symptoms. She has some epigastric discomfort. No headaches. No visual symptoms, sore throat, odynophagia, or dysphagia. No vomiting, hematemesis, or melena. No joint symptoms. Her initial temperature was 101, pulse 104, respirations 20, BP 101/55, and O2 saturation 94%. Did not appear in distress with chest exam was normal. The abdomen is soft and nontender. The sodium was 129, potassium 3.1, creatinine 0.82, and WBC count 16.6, and hemoglobin 11.5. Lactic acid 4.2. Urinalysis with negative nitrite and moderate leukocyte esterase. The patient had a CT completed of the abdomen and this time it showed severe distention of urinary bladder, moderate right hydronephrosis. Calculus was not visualized. Currently, Ms. Alexandre has a Murray catheter in place and is feeling better. She denies any headaches. No visual symptoms, sore throat, odynophagia , or dysphagia. No respiratory symptoms. No vomiting. PAST MEDICAL HISTORY: Includes type 2 diabetes, hypertension, hypothyroidism, recurrent UTIs, bilateral total knee arthroplasties, appendectomy, and mastectomy for breast cancer, which she is in remission. ALLERGIES: NONE. FAMILY HISTORY: Noncontributory. SOCIAL HISTORY: Never smoker. Lives in [place]. CURRENT MEDICATIONS: 1. Tylenol. 2. Ceftriaxone. 3. Dextrose. 4. Lovenox. 5. Pepcid. 6. Glucagon. 7. Insulin. PHYSICAL EXAMINATION: VITAL SIGNS: T-max 98.5. Other vital signs are normal. O2 saturation 92% on room air, appears in no distress. Peripheral IV access. SKIN: With bruising in the left flank area and right and left thigh. No lymphadenopathy. HEENT: Ocular movements conjugate. Sclerae white. Oral cavity was not remarkable. NECK: Supple. LUNGS: Symmetric clear breath sounds. HEART: S1 and S2. Regular rate. No S3 or S4. ABDOMEN: Soft, not distended or tender. No ascites. No bladder distention. EXTREMITIES: No joint inflammatory process. Pulses 1+ in dorsalis pedis. Moves extremities equally cognitive function appears to be intact. LABORATORY DATA: White cell count 16 and now 11, platelets 175, hemoglobin 11, MCV 92, and differential with 82% neutrophils. Sodium 134, creatinine 0.74, calcium 9.3, bilirubin 0.7, AST 24, ALT 23, alkaline phosphatase 56, albumin 3.8, globulin 3.0. MICROBIOLOGY: With E. coli as well as positive from 2 sets of blood cultures and urine culture likely the same organism. Susceptibilities are pending. There is a urine culture from July 02 with E. coli with resistance only to quinolones. IMAGING STUDIES: Reported above. She had a lumbar spine MRI from July 31, which showed acute compression fracture of L1, spondylolisthesis, and severe central canal stenosis L4-L5. ASSESSMENT: 1. Diabetes mellitus type 2. Previous urinary tract infections including pyelonephritis 2 years ago with extended-spectrum beta-lactamases Escherichia coli. 2. Recent LS spine fracture evidence of LS spine stenosis. 3. Urinary retention, likely neurogenic bladder associated with the diabetes and /or the recent acute spinal fracture with stenosis. 4. Bacteremia with invasive urinary tract infection, pyelonephritis, and hydronephrosis associated with neurogenic bladder. DISCUSSION: The patient has Murray catheter and will need a voiding trial down the road. This is probably neurogenic and may be associated with the recent vertebral fracture + DM2. It is likely that the E. coli is going to be susceptible to Rocephin for discharge plan out probably recommended trimethoprim sulfamethoxazole since it has better efficacy for pyelonephritis then oral cephalosporins. 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 the main issue here will be to resolve the emptying of her bladder. If she persists with problems in that regard, then she will need in and out catheterization. Other sites of distant dissemination are not evident at this point in time. Job ID: [id number] [facility]
[2018-08-09] MEDS: cefTRIAXone\\ROCEPHIN 1 GM in Sodium Chloride 0.9% 100 ML IVPB SCH (03:35)
[2018-08-09] MEDS: Famotidine 20 MG TAB PO SCH ×2 (08:17→20:26)
[2018-08-09] MEDS: Enoxaparin Sodium 40 MG/0.4 ML SYRINGE SC SCH (08:17)
--- NOTE | 2018-08-09 12:13 | PDOC.PN ---
- Subjective Encounter Start Date: 08/09/18 Encounter Start Time: 12:12 Patient seen and examined, family at bedside, all questions answered. Patient states she's feeling better. - Objective Resuscitation Status - Order Detail: 08/07/18 09:10 Resuscitation Status Routine Resuscitation Status: FULL: Full Resuscitation Vital Signs & Weight: Vital Signs (12 hours) Temp Pulse Resp BP Pulse Ox 08/09/18 08:18 98.7 F 101 H 18 139/88 91 L 08/09/18 08:00 91 L Weight Weight 140 lb 1 oz I&O: 08/08/18 08/09/18 08/10/18 06:59 06:59 06:59 Intake Total 1140 1780 Output Total 6567 2734 Balance -0459 -683 Result Diagrams: 08/08/18 06:45 08/08/18 06:45 Additional Labs: Accuchecks 08/09/18 08/09/18 08/08/18 11:47 05:33 20:47 POC Glucose 166 H 153 H 130 H 08/08/18 16:33 POC Glucose 205 H Phys Exam - Physical Examination Constitutional: NAD HEENT: PERRLA, moist MMs, sclera anicteric Neck: no nodes, no JVD, supple Respiratory: no wheezing, no rales, no rhonchi Cardiovascular: RRR, no significant murmur, no rub Gastrointestinal: soft, non-tender, no distention, positive bowel sounds Musculoskeletal: pulses present, edema present (trace) Dx/Plan (1) Bacteremia due to Escherichia coli Code(s): R78.81 - BACTEREMIA Status: Acute (2) Sepsis Code(s): A41.9 - SEPSIS, UNSPECIFIED ORGANISM Status: Acute Qualifiers: (3) UTI (urinary tract infection) Status: Acute Qualifiers: Comment: right pyelonephritis (4) DM type 2 (diabetes mellitus, type 2) Status: Chronic Qualifiers: (5) Dyslipidemia Code(s): E78.5 - HYPERLIPIDEMIA, UNSPECIFIED Status: Chronic (6) HTN (hypertension) Code(s): I10 - ESSENTIAL (PRIMARY) HYPERTENSION Status: Chronic Qualifiers: (7) Hypothyroidism Code(s): E03.9 - HYPOTHYROIDISM, UNSPECIFIED Status: Chronic Qualifiers: - Plan * DC euceda, will do post void bladder US, if retaining will do straight cath * labs in AM * DC plans in AM with bactrim per ID recs, patient advised to FU with PCP and ID in 1-2 weeks post discharge * case and plan d/w patient and family at length, they understand and agree with this plan.
[2018-08-09] MEDS: HYDROcodone/Acetaminophen 5/325 mg Tablet PO PRN ×2 (12:24→18:01)
--- NOTE | 2018-08-09 14:37 | EKG ---
Test Reason : Blood Pressure : / mmHG Vent. Rate : 128 BPM Atrial Rate : 128 BPM P-R Int : 156 ms QRS Dur : 130 ms QT Int : 308 ms P-R-T Axes : 071 -39 057 degrees QTc Int : 449 ms Sinus tachycardia with Premature atrial complexes Left axis deviation Right bundle branch block Abnormal ECG Confirmed by VICTOR HUGO GARNER ([id number]), communications editor FOREIGN HUSTON ([id number]) on 08/09/2018 2:36:39 PM Referred By: Confirmed By:VICTOR HUGO GARNER
[2018-08-10] MEDS: HYDROcodone/Acetaminophen 5/325 mg Tablet PO PRN ×2 (00:57→08:58)
[2018-08-10] MEDS: cefTRIAXone\\ROCEPHIN 1 GM in Sodium Chloride 0.9% 100 ML IVPB SCH (03:36)
[2018-08-10 08:33] LABS: #Basophils 0.1 thou/uL (0.0-0.2); #Eosinphils 0.1 thou/uL (0.0-0.7); #Monocytes 0.8 thou/uL (0.11-0.59); #Neutrophils 4.4 thou/uL (1.40-6.50); %Basophils 1.1 % (0.0-1.0); %Eosinophils 2.3 % (0.0-10.0); %Neutrophils 68.6 % (42.0-75.0); Hemoglobin 11.9 g/dL (12.0-16.0); Mean Corpuscular HGB CONC 34.1 g/dL (32.0-36.0); Mean Corpuscular Hemoglobin 30.2 pg (27.0-31.0); Mean Corpuscular Volume 88.4 fL (78.0-98.0); Mean Platelet Volume 7.6 fL (7.4-10.4); Platelet Count 247 thou/uL (130-400); RBC Distribution Width 13.1 % (11.5-14.5); Red Blood Cell (RBC) Count 3.93 mill/uL (4.20-5.40); White Blood Cell (WBC) Count 6.4 thou/uL (4.8-10.8)
[2018-08-10 08:53] LABS: Anion Gap 15 mmol/L (10-20); BUN (Urea Nitrogen) 10 mg/dL (9.8-20.1); Calc. Creatinine Clearance 51 mL/min (70-130); Calcium 9.2 mg/dL (7.8-10.44); Carbon Dioxide 23 mmol/L (23-31); Chloride 98 mmol/L (98-107); Estimated GFR-MDRD 69; Glucose 142 mg/dL (83-110); Potassium 3.2 mmol/L (3.5-5.1); Sodium 133 mmol/L (136-145)
[2018-08-10] MEDS: Famotidine 20 MG TAB PO SCH (08:53)
[2018-08-10] MEDS: Enoxaparin Sodium 40 MG/0.4 ML SYRINGE SC SCH (08:53)
--- NOTE | 2018-08-10 11:18 | PDOC.EVN ---
Event Note - Event Note Event Note: [place] #[id number]
[2018-08-10] MEDS: HumaLOG 300 UNITS/3 ML VIAL SC PRN (13:15)
[2018-08-10 14:32] VITALS: BP 136/88; TEMP 98.5
--- NOTE | 2018-08-11 00:38 | DIS ---
DATE OF ADMISSION: 08/07/2018 DATE OF DISCHARGE: 08/10/2018 ADMITTING DIAGNOSES: 1. Urinary tract infection with sepsis. 2. Hypertension. 3. Hyperlipidemia. 4. Hypothyroidism. 5. Diabetes mellitus type 2. DISCHARGE DIAGNOSES: 1. Urinary tract infection sepsis, resolved. 2. Hypertension, hyperlipidemia, and diabetes mellitus, stable. HOSPITAL COURSE: This is an 88-year-old female with presenting symptoms of fever, dysuria, shaking, and chills. The patient stated that the symptoms started approximately 2 days prior to arrival. The patient was seen in the ER, had a CT scan done, which showed distention of the bladder, mild hydronephrosis, and some abdominal pain. The patient had a Murray inserted, started on antibiotics. Blood cultures and urine cultures were resulted positive for E coli. The patient at point in time of discharge was afebrile, white count coming down, evaluated by Internal Medicine as well as Infectious Disease. Decision initially was made to give the patient Bactrim. At point in time of discharge, however, given the fact that the patient had recent kidney injuries in the past and per family, she was apparently told that she has baseline chronic kidney conditions. Given that she is a diabetic and hypertensive, decision was made to give the patient Keflex at point in time of discharge and have the patient follow up in approximately 1 to 2 weeks for repeat urinalysis after completion of her antibiotic course. The patient at point in time of discharge was stable, had 24 hours of Murray free urination. Post-void bladder ultrasound showed collections less than 50 mL. At point in time of discharge, the patient again was stable. Case and plan were discussed with the patient and family at length. They understood and agreed with this plan. DISPOSITION: Home. FOLLOWUP: Follow up with PCP and Urology within 1 to 2 weeks. CONDITION: Stable. PROGNOSIS: Good. DIET: Low-fat, low-calorie, high-fiber diet. MEDICATIONS: See MAR. ACTIVITY: As tolerated with assistance as needed. Case and plan were once again discussed with the patient and family at length. They understand and agree with this plan. Job ID: [id number]
== END 2018-08-10 14:20 | disposition home or self-care (01) | DRG 872 ==
LOC: ERS 02:00 → ERHOLD 04:13 → T4-B 14:01
PROVIDERS: ADMIT Family Medicine; ATTEND Family Medicine
PROC: 0T9B70Z Drainage of Bladder with Drainage Device, Via Natural or Artificial Opening (ICD-10-PCS; principal; 2018-08-07)
DX: A41.51 Sepsis due to Escherichia coli [E. coli] (principal); N13.6 Pyonephrosis; I10 Essential (primary) hypertension; E11.9 Type 2 diabetes mellitus without complications; E03.9 Hypothyroidism, unspecified; R33.9 Retention of urine, unspecified; E87.6 Hypokalemia; Z96.653 Presence of artificial knee joint, bilateral; Z79.4 Long term (current) use of insulin; Z90.49 Acquired absence of other specified parts of digestive tract; Z90.11 Acquired absence of right breast and nipple; Z85.3 Personal history of malignant neoplasm of breast; Z79.899 Other long term (current) drug therapy; Z79.83 Long term (current) use of bisphosphonates; Z87.440 Personal history of urinary (tract) infections; E78.00 Pure hypercholesterolemia, unspecified; N31.9 Neuromuscular dysfunction of bladder, unspecified
CPT/HCPCS: 36415; 36416; 51702; 74177; 80048; 80053; 81003; 81015; 83605; 83690; 85025; 87040; 87077; 87086; 87149; 87186; 93005; 96361; 96365; J0696; J1650; J2550; J3370; J3490; Q9966

== ENCOUNTER 2018-08-14 08:59 | Outpatient (CLI) | payer MEDICARE ==
--- NOTE | 2018-08-14 09:37 | RAD ---
2 VIEWS LEFT SHOULDER: Date: 08/14/18 HISTORY: Fall. FINDINGS: AP internally, externally, and scapular Y views of left shoulder obtained. Images demonstrate an area of cortical disruption seen in the upper aspect of the left scapula. The fracture appears to involve the superior border of the scapula. IMPRESSION: Superior scapular fracture. POS: [facility]
== END 2018-08-14 09:00 | disposition home or self-care (01) ==
LOC: RAD 08:59
PROVIDERS: ATTEND Specialist
DX: M25.512 Pain in left shoulder (principal); S42.102A Fracture of unspecified part of scapula, left shoulder, initial encounter for closed fracture

== ENCOUNTER 2021-12-27 10:02 | Inpatient (IN) | payer MEDICARE ==
[2021-12-27] MEDS ORDERED: Cefepime 2 GM VIAL ONE (10:35)
[2021-12-27] MEDS ORDERED: Vancomycin 1 GM/200 ML BAG ONE (10:35)
[2021-12-27] MEDS ORDERED: hydrALAZINE 20 MG/ML VIAL ONE (10:57)
[2021-12-27 11:01] LABS: #Eosinphils 0.1 thou/uL (0.0-0.7); #Lymphocytes 1.7 thou/uL (1.20-3.40); #Monocytes 0.7 thou/uL (0.11-0.59); #Neutrophils 11.4 thou/uL (1.40-6.50); %Basophils 0.1 % (0.0-1.0); %Monocytes 4.9 % (0.0-10.0); %Neutrophils 82.1 % (42.0-75.0); Hemoglobin 13.9 g/dL (12.0-16.0); Mean Corpuscular HGB CONC 32.6 g/dL (32.0-36.0); Mean Corpuscular Hemoglobin 28.6 pg (27.0-31.0); Mean Corpuscular Volume 87.6 fL (78.0-98.0); Mean Platelet Volume 9.5 fL (7.4-10.4); Platelet Count 227 thou/uL (130-400); RBC Distribution Width 13.5 % (11.5-14.5); Red Blood Cell (RBC) Count 4.86 mill/uL (4.20-5.40); White Blood Cell (WBC) Count 13.9 thou/uL (4.8-10.8)
[2021-12-27 11:05] LABS: Bacteria/HPF 4+ HPF (None Seen); Bilirubin Negative (Negative); Blood, Urine 2+ (Negative); Clarity Turbid (Clear); Glucose, Urine (Dipstick) Normal (Negative); Ketone, Urine Negative (Negative); Leukocyte 500 Leu/uL (Negative); Nitrite Negative (Negative); Protein, Urine (Dipstick) 200 mg/dL (Neg-Trace); RBC/HPF 21-50 HPF (0-3); Specific Gravity, Urine 1.014 (1.002-1.036); Urobilinogen Normal mg/dL (Less than 2); WBC/HPF Greater than 50 HPF (0-3); pH, Urine 6.5 (5.0-9.0)
[2021-12-27 11:11] LABS: Amphetamine Not Detected (NotDetected); Barbiturates Screen Not Detected (NotDetected); Benzodiazepine Screen Not Detected (NotDetected); Cocaine Metabolite Screen Not Detected (NotDetected); Methadone Not Detected (NotDetected); Methamphetamine Not Detected (NotDetected); Opiate Screen Detected (NotDetected); Oxycodone Screen Not Detected (NotDetected); Phencyclidine (PCP) Not Detected (NotDetected); THC/Cannabinoid Screen Not Detected (NotDetected); Tricyclic Screen Not Detected (NotDetected)
[2021-12-27 11:19] LABS: ALT (SGPT) 12 U/L (8-55); AST (SGOT) 13 U/L (5-34); Alkaline Phosphatase 66 U/L (40-110); Anion Gap 18 mmol/L (10-20); BUN (Urea Nitrogen) 21 mg/dL (9.8-20.1); Bilirubin, Total 0.7 mg/dL (0.2-1.2); Calc. Creatinine Clearance 0 mL/min (70-130); Calcium 10.2 mg/dL (7.8-10.44); Carbon Dioxide 25 mmol/L (23-31); Chloride 97 mmol/L (98-107); Estimated GFR 43; Globulin 3.4 g/dL (2.4-3.5); Glucose 204 mg/dL (83-110); Lipase 31 U/L (8-78); Potassium 4.1 mmol/L (3.5-5.1); Protein, Total 7.4 g/dL (5.8-8.1); Sodium 136 mmol/L (136-145)
[2021-12-27 11:29] LABS: SARS-CoV-2 NAA Rapid Test Not Detected (NotDetected)
[2021-12-27 11:52] LABS: Acetaminophen Less than 10.0 mcg/mL (10.0-30.0); Alcohol Less than 10 mg/dL (Less than 10); Salicylate Less than 8.0 mg/dL (15.0-30.0)
[2021-12-27] MEDS ORDERED: Senokot S 8.6-50 MG TAB PO PRN (13:19)
[2021-12-27] MEDS ORDERED: Dextrose 50% Abboject 50 ML SYRINGE SLOW IVP PRN (13:48)
[2021-12-27] MEDS ORDERED: Dextrose 5% in Water 1,000 ML IV PRN (13:48)
[2021-12-27] MEDS: cefTRIAXone\\ROCEPHIN 1 GM in Sodium Chloride 0.9% 100 ML IVPB SCH (15:09)
[2021-12-27] MEDS: Sodium Chloride 0.9% 1,000 ML IV SCH (15:10)
[2021-12-27 15:18] VITALS: BMI 27.8
[2021-12-27] MEDS: Insulin Regular 300 UNITS/3 ML VIAL SC PRN (18:21)
[2021-12-28] MEDS: Sodium Chloride 0.9% 1,000 ML IV SCH ×2 (04:30→16:44)
[2021-12-28] MEDS: Levothyroxine Sodium 50 MCG TAB PO SCH (05:51)
[2021-12-28 05:57] LABS: #Eosinphils 0.1 thou/uL (0.0-0.7); #Lymphocytes 1.5 thou/uL (1.20-3.40); #Monocytes 0.8 thou/uL (0.11-0.59); #Neutrophils 9.7 thou/uL (1.40-6.50); %Basophils 0.2 % (0.0-1.0); %Eosinophils 0.6 % (0.0-10.0); %Lymphocytes 12.5 % (21.0-51.0); %Monocytes 6.7 % (0.0-10.0); %Neutrophils 80.1 % (42.0-75.0); Hemoglobin 12.9 g/dL (12.0-16.0); Mean Corpuscular HGB CONC 32.2 g/dL (32.0-36.0); Mean Corpuscular Hemoglobin 28.3 pg (27.0-31.0); Mean Corpuscular Volume 88.1 fL (78.0-98.0); Mean Platelet Volume 9.5 fL (7.4-10.4); Platelet Count 204 thou/uL (130-400); RBC Distribution Width 13.5 % (11.5-14.5); Red Blood Cell (RBC) Count 4.55 mill/uL (4.20-5.40); White Blood Cell (WBC) Count 12.1 thou/uL (4.8-10.8)
[2021-12-28 06:20] LABS: Anion Gap 15 mmol/L (10-20); BUN (Urea Nitrogen) 16 mg/dL (9.8-20.1); Calc. Creatinine Clearance 51 mL/min (70-130); Calcium 9.5 mg/dL (7.8-10.44); Carbon Dioxide 23 mmol/L (23-31); Chloride 102 mmol/L (98-107); Estimated GFR 66; Glucose 142 mg/dL (83-110); Potassium 3.4 mmol/L (3.5-5.1); Sodium 137 mmol/L (136-145)
[2021-12-28] MEDS: Alogliptin 25 MG TAB PO SCH (08:41)
[2021-12-28] MEDS: Cholecalciferol 1,000 UNITS (25 MCG) TAB PO SCH (08:41)
[2021-12-28] MEDS: Metoprolol Tartrate 50 MG TAB PO SCH (08:41)
[2021-12-28] MEDS ORDERED: Potassium Chloride 20 MEQ TAB PO SCH (09:45)
[2021-12-28] MEDS: cefTRIAXone\\ROCEPHIN 1 GM in Sodium Chloride 0.9% 100 ML IVPB SCH (15:21)
[2021-12-28] MEDS ORDERED: hydrALAZINE 20 MG/ML VIAL SLOW IVP SCH (16:45)
[2021-12-28] MEDS: Insulin Regular 300 UNITS/3 ML VIAL SC PRN ×2 (18:25→22:40)
[2021-12-28] MEDS ORDERED: Estradiol 0.01% Vaginal Cream 42.5 gm Tube VAG SCH (21:00)
[2021-12-28] MEDS: Simvastatin 10 MG TAB PO SCH (21:00)
[2021-12-29] MEDS: Acetaminophen 325 MG TAB PO PRN ×2 (00:27→21:25)
[2021-12-29 05:58] LABS: #Lymphocytes 1.4 thou/uL (1.20-3.40); #Neutrophils 10.2 thou/uL (1.40-6.50); %Basophils 0.1 % (0.0-1.0); %Eosinophils 0.3 % (0.0-10.0); %Lymphocytes 11.3 % (21.0-51.0); %Monocytes 7.5 % (0.0-10.0); %Neutrophils 80.8 % (42.0-75.0); Hemoglobin 12.9 g/dL (12.0-16.0); Mean Corpuscular HGB CONC 32.9 g/dL (32.0-36.0); Mean Corpuscular Hemoglobin 28.7 pg (27.0-31.0); Mean Corpuscular Volume 87.2 fL (78.0-98.0); Mean Platelet Volume 9.3 fL (7.4-10.4); Platelet Count 194 thou/uL (130-400); RBC Distribution Width 13.7 % (11.5-14.5); Red Blood Cell (RBC) Count 4.49 mill/uL (4.20-5.40); White Blood Cell (WBC) Count 12.6 thou/uL (4.8-10.8)
[2021-12-29] MEDS: Sodium Chloride 0.9% 1,000 ML IV SCH ×2 (06:05→21:26)
[2021-12-29] MEDS: Levothyroxine Sodium 50 MCG TAB PO SCH (06:05)
[2021-12-29 06:18] LABS: Anion Gap 17 mmol/L (10-20); BUN (Urea Nitrogen) 12 mg/dL (9.8-20.1); Calc. Creatinine Clearance 52 mL/min (70-130); Calcium 9.3 mg/dL (7.8-10.44); Carbon Dioxide 18 mmol/L (23-31); Chloride 104 mmol/L (98-107); Estimated GFR 68; Glucose 174 mg/dL (83-110); Potassium 3.5 mmol/L (3.5-5.1); Sodium 135 mmol/L (136-145)
[2021-12-29] MEDS: Metoprolol Tartrate 50 MG TAB PO SCH (09:57)
[2021-12-29] MEDS: Cholecalciferol 1,000 UNITS (25 MCG) TAB PO SCH (09:57)
[2021-12-29] MEDS: Alogliptin 25 MG TAB PO SCH (09:57)
[2021-12-29] MEDS: Insulin Regular 300 UNITS/3 ML VIAL SC PRN ×2 (13:14→18:40)
[2021-12-29] MEDS ORDERED: Piperacillin/Tazobactam 3.375 GM in Sodium Chloride 0.9% 100 ML IVPB SCH ×2 (16:00→18:00)
[2021-12-29] MEDS: Piperacillin/Tazobactam 3.375 GM in Sodium Chloride 0.9% 100 ML IVPB SCH (21:25)
[2021-12-29] MEDS: Simvastatin 10 MG TAB PO SCH ×2 (21:25→23:39)
[2021-12-30] MEDS: Piperacillin/Tazobactam 3.375 GM in Sodium Chloride 0.9% 100 ML IVPB SCH ×3 (05:19→20:56)
[2021-12-30] MEDS: Levothyroxine Sodium 50 MCG TAB PO SCH (05:19)
[2021-12-30 06:14] LABS: #Monocytes 1.1 thou/uL (0.11-0.59); #Neutrophils 13.7 thou/uL (1.40-6.50); %Eosinophils 0.1 % (0.0-10.0); %Lymphocytes 6.6 % (21.0-51.0); %Monocytes 6.8 % (0.0-10.0); %Neutrophils 86.5 % (42.0-75.0); Hemoglobin 12.9 g/dL (12.0-16.0); Mean Corpuscular Hemoglobin 28.9 pg (27.0-31.0); Mean Corpuscular Volume 87.5 fL (78.0-98.0); Mean Platelet Volume 9.5 fL (7.4-10.4); Platelet Count 188 thou/uL (130-400); RBC Distribution Width 13.5 % (11.5-14.5); Red Blood Cell (RBC) Count 4.45 mill/uL (4.20-5.40); White Blood Cell (WBC) Count 15.8 thou/uL (4.8-10.8)
[2021-12-30 06:32] LABS: Anion Gap 17 mmol/L (10-20); BUN (Urea Nitrogen) 13 mg/dL (9.8-20.1); Calc. Creatinine Clearance 51 mL/min (70-130); Calcium 9.2 mg/dL (7.8-10.44); Carbon Dioxide 20 mmol/L (23-31); Chloride 100 mmol/L (98-107); Estimated GFR 66; Glucose 164 mg/dL (83-110); Sodium 134 mmol/L (136-145)
[2021-12-30] MEDS: Cholecalciferol 1,000 UNITS (25 MCG) TAB PO SCH (08:22)
[2021-12-30] MEDS: Alogliptin 25 MG TAB PO SCH (08:22)
[2021-12-30] MEDS: Metoprolol Tartrate 50 MG TAB PO SCH ×2 (08:22→20:56)
[2021-12-30] MEDS: Sodium Chloride 0.9% 1,000 ML IV SCH (08:30)
[2021-12-30] MEDS: Insulin Regular 300 UNITS/3 ML VIAL SC PRN ×3 (12:44→20:59)
[2021-12-30] MEDS ORDERED: Potassium Chloride 20 MEQ TAB PO SCH (14:45)
[2021-12-30] MEDS: Simvastatin 10 MG TAB PO SCH (20:56)
[2021-12-31] MEDS: Sodium Chloride 0.9% 1,000 ML IV SCH ×2 (03:18→11:29)
[2021-12-31] MEDS: Levothyroxine Sodium 50 MCG TAB PO SCH (05:26)
[2021-12-31] MEDS: Piperacillin/Tazobactam 3.375 GM in Sodium Chloride 0.9% 100 ML IVPB SCH ×3 (05:26→20:36)
[2021-12-31 05:59] LABS: #Eosinphils 0.1 thou/uL (0.0-0.7); #Lymphocytes 1.2 thou/uL (1.20-3.40); #Monocytes 0.9 thou/uL (0.11-0.59); #Neutrophils 10.7 thou/uL (1.40-6.50); %Basophils 0.1 % (0.0-1.0); %Eosinophils 0.6 % (0.0-10.0); %Lymphocytes 9.5 % (21.0-51.0); %Monocytes 7.1 % (0.0-10.0); %Neutrophils 82.8 % (42.0-75.0); Hemoglobin 11.8 g/dL (12.0-16.0); Mean Corpuscular HGB CONC 33.9 g/dL (32.0-36.0); Mean Corpuscular Volume 88.3 fL (78.0-98.0); Mean Platelet Volume 9.3 fL (7.4-10.4); Platelet Count 182 thou/uL (130-400); RBC Distribution Width 13.4 % (11.5-14.5); Red Blood Cell (RBC) Count 3.93 mill/uL (4.20-5.40); White Blood Cell (WBC) Count 12.9 thou/uL (4.8-10.8)
[2021-12-31 06:27] LABS: Anion Gap 16 mmol/L (10-20); BUN (Urea Nitrogen) 14 mg/dL (9.8-20.1); Calc. Creatinine Clearance 52 mL/min (70-130); Calcium 8.8 mg/dL (7.8-10.44); Carbon Dioxide 19 mmol/L (23-31); Chloride 105 mmol/L (98-107); Estimated GFR 68; Glucose 160 mg/dL (83-110); Potassium 3.2 mmol/L (3.5-5.1); Sodium 137 mmol/L (136-145)
[2021-12-31] MEDS: Aspirin 81 mg Enteric Coated Tablet PO SCH (09:07)
[2021-12-31] MEDS: Alogliptin 25 MG TAB PO SCH (09:07)
[2021-12-31] MEDS: Metoprolol Tartrate 50 MG TAB PO SCH ×2 (09:07→20:36)
[2021-12-31] MEDS: Cholecalciferol 1,000 UNITS (25 MCG) TAB PO SCH (09:07)
[2021-12-31] MEDS: Insulin Regular 300 UNITS/3 ML VIAL SC PRN ×3 (11:49→20:43)
[2021-12-31] MEDS: Simvastatin 10 MG TAB PO SCH (20:36)
[2022-01-01] MEDS: Sodium Chloride 0.9% 1,000 ML IV SCH ×2 (04:03→11:32)
[2022-01-01] MEDS: Piperacillin/Tazobactam 3.375 GM in Sodium Chloride 0.9% 100 ML IVPB SCH ×3 (04:03→21:13)
[2022-01-01] MEDS: Acetaminophen 325 MG TAB PO PRN (04:10)
[2022-01-01] MEDS: Levothyroxine Sodium 50 MCG TAB PO SCH (06:12)
[2022-01-01 06:14] LABS: #Eosinphils 0.1 thou/uL (0.0-0.7); #Monocytes 0.9 thou/uL (0.11-0.59); #Neutrophils 8.7 thou/uL (1.40-6.50); %Basophils 0.1 % (0.0-1.0); %Eosinophils 0.7 % (0.0-10.0); %Lymphocytes 9.7 % (21.0-51.0); %Monocytes 8.1 % (0.0-10.0); %Neutrophils 81.4 % (42.0-75.0); Hemoglobin 11.4 g/dL (12.0-16.0); Mean Corpuscular Hemoglobin 29.3 pg (27.0-31.0); Mean Corpuscular Volume 88.7 fL (78.0-98.0); Mean Platelet Volume 9.2 fL (7.4-10.4); Platelet Count 194 thou/uL (130-400); RBC Distribution Width 13.3 % (11.5-14.5); Red Blood Cell (RBC) Count 3.89 mill/uL (4.20-5.40); White Blood Cell (WBC) Count 10.7 thou/uL (4.8-10.8)
[2022-01-01 06:47] LABS: ALT (SGPT) 8 U/L (8-55); AST (SGOT) 12 U/L (5-34); Albumin 2.8 g/dL (3.4-4.8); Alkaline Phosphatase 53 U/L (40-110); Anion Gap 16 mmol/L (10-20); BUN (Urea Nitrogen) 15 mg/dL (9.8-20.1); Bilirubin, Total 0.7 mg/dL (0.2-1.2); Calc. Creatinine Clearance 54 mL/min (70-130); Calcium 8.7 mg/dL (7.8-10.44); Carbon Dioxide 22 mmol/L (23-31); Chloride 103 mmol/L (98-107); Estimated GFR 70; Globulin 3.4 g/dL (2.4-3.5); Glucose 144 mg/dL (83-110); Potassium 3.1 mmol/L (3.5-5.1); Protein, Total 6.2 g/dL (5.8-8.1); Sodium 138 mmol/L (136-145)
[2022-01-01] MEDS: Metoprolol Tartrate 50 MG TAB PO SCH ×2 (08:07→21:14)
[2022-01-01] MEDS: Alogliptin 25 MG TAB PO SCH (08:07)
[2022-01-01] MEDS: Aspirin 81 mg Enteric Coated Tablet PO SCH (08:07)
[2022-01-01] MEDS: Cholecalciferol 1,000 UNITS (25 MCG) TAB PO SCH (08:07)
[2022-01-01] MEDS: Insulin Regular 300 UNITS/3 ML VIAL SC PRN ×2 (11:33→16:52)
[2022-01-01] MEDS ORDERED: Potassium Chloride 20 MEQ TAB PO SCH (13:30)
[2022-01-01] MEDS: Simvastatin 10 MG TAB PO SCH (21:14)
[2022-01-02] MEDS: Piperacillin/Tazobactam 3.375 GM in Sodium Chloride 0.9% 100 ML IVPB SCH ×3 (04:05→20:24)
[2022-01-02] MEDS: Levothyroxine Sodium 50 MCG TAB PO SCH (05:59)
[2022-01-02] MEDS: Acetaminophen 325 MG TAB PO PRN (05:59)
[2022-01-02 06:28] LABS: #Eosinphils 0.1 thou/uL (0.0-0.7); #Lymphocytes 1.5 thou/uL (1.20-3.40); #Monocytes 0.7 thou/uL (0.11-0.59); #Neutrophils 7.9 thou/uL (1.40-6.50); %Basophils 0.1 % (0.0-1.0); %Eosinophils 0.8 % (0.0-10.0); %Lymphocytes 14.5 % (21.0-51.0); %Monocytes 6.9 % (0.0-10.0); %Neutrophils 77.6 % (42.0-75.0); Hemoglobin 11.7 g/dL (12.0-16.0); Mean Corpuscular HGB CONC 33.3 g/dL (32.0-36.0); Mean Corpuscular Hemoglobin 29.2 pg (27.0-31.0); Mean Corpuscular Volume 87.7 fL (78.0-98.0); Mean Platelet Volume 9.5 fL (7.4-10.4); Platelet Count 207 thou/uL (130-400); RBC Distribution Width 13.4 % (11.5-14.5); Red Blood Cell (RBC) Count 3.99 mill/uL (4.20-5.40); White Blood Cell (WBC) Count 10.2 thou/uL (4.8-10.8)
[2022-01-02 06:50] LABS: ALT (SGPT) 14 U/L (8-55); AST (SGOT) 19 U/L (5-34); Albumin 2.8 g/dL (3.4-4.8); Alkaline Phosphatase 60 U/L (40-110); Anion Gap 17 mmol/L (10-20); BUN (Urea Nitrogen) 16 mg/dL (9.8-20.1); Bilirubin, Total 0.6 mg/dL (0.2-1.2); Calc. Creatinine Clearance 48 mL/min (70-130); Calcium 9.1 mg/dL (7.8-10.44); Carbon Dioxide 20 mmol/L (23-31); Chloride 103 mmol/L (98-107); Estimated GFR 62; Globulin 3.6 g/dL (2.4-3.5); Glucose 177 mg/dL (83-110); Potassium 3.6 mmol/L (3.5-5.1); Protein, Total 6.4 g/dL (5.8-8.1); Sodium 136 mmol/L (136-145)
[2022-01-02] MEDS: Insulin Regular 300 UNITS/3 ML VIAL SC PRN ×3 (07:16→23:43)
[2022-01-02 08:25] LABS: INR-International Normal Ratio 1.2; PTT 36.5 sec (22.9-36.1); Prothrombin Time 15.4 sec (12.0-14.7)
[2022-01-02] MEDS: Metoprolol Tartrate 50 MG TAB PO SCH ×2 (09:45→20:24)
[2022-01-02] MEDS: Aspirin 81 mg Enteric Coated Tablet PO SCH (09:45)
[2022-01-02] MEDS: Alogliptin 25 MG TAB PO SCH (09:45)
[2022-01-02] MEDS: Cholecalciferol 1,000 UNITS (25 MCG) TAB PO SCH (09:45)
[2022-01-02] MEDS: Simvastatin 10 MG TAB PO SCH (20:24)
[2022-01-03] MEDS: Piperacillin/Tazobactam 3.375 GM in Sodium Chloride 0.9% 100 ML IVPB SCH (04:31)
[2022-01-03 05:24] VITALS: TEMP 97.6
[2022-01-03] MEDS: Insulin Regular 300 UNITS/3 ML VIAL SC PRN ×2 (06:39→13:35)
[2022-01-03] MEDS: Levothyroxine Sodium 50 MCG TAB PO SCH (06:39)
[2022-01-03] MEDS: Alogliptin 25 MG TAB PO SCH (10:11)
[2022-01-03] MEDS: Metoprolol Tartrate 50 MG TAB PO SCH (10:12)
[2022-01-03] MEDS: Cholecalciferol 1,000 UNITS (25 MCG) TAB PO SCH (10:12)
[2022-01-03] MEDS: Aspirin 81 mg Enteric Coated Tablet PO SCH (10:12)
[2022-01-03 12:43] VITALS: BP 119/55
== END 2022-01-03 14:30 | DRG 871 ==
LOC: ERS 10:02 → SURG A 12:37
PROVIDERS: ADMIT Internal Medicine; ATTEND Internal Medicine
DX: A41.9 Sepsis, unspecified organism (principal); G93.41 Metabolic encephalopathy; N17.9 Acute kidney failure, unspecified; I13.0 Hypertensive heart and chronic kidney disease with heart failure and stage 1 through stage 4 chronic kidney disease, or unspecified chronic kidney disease; N18.4 Chronic kidney disease, stage 4 (severe); N30.00 Acute cystitis without hematuria; L03.114 Cellulitis of left upper limb; Z20.822 Contact with and (suspected) exposure to COVID-19; E78.5 Hyperlipidemia, unspecified; E78.00 Pure hypercholesterolemia, unspecified; E11.22 Type 2 diabetes mellitus with diabetic chronic kidney disease; E55.9 Vitamin D deficiency, unspecified; M13.822 Other specified arthritis, left elbow; I50.9 Heart failure, unspecified; E03.9 Hypothyroidism, unspecified; Z79.890 Hormone replacement therapy; Z79.899 Other long term (current) drug therapy; Z79.82 Long term (current) use of aspirin; Z79.84 Long term (current) use of oral hypoglycemic drugs; Z85.3 Personal history of malignant neoplasm of breast; Z90.49 Acquired absence of other specified parts of digestive tract; Z98.51 Tubal ligation status; Z90.11 Acquired absence of right breast and nipple
CPT/HCPCS: 36415; 36416; 70450; 71045; 71250; 74177; 80048; 80053; 80306; 80307; 81003; 81015; 83605; 83690; 85025; 85610; 85730; 87040; 87077; 87086; 87186; 87811; 93005; 93010; 93970; 94760; 96361; 96374; 96375; J0360; J0692; J0696; J1815; J2543; J3370; J3490; J7050; U0002

== ENCOUNTER 2022-01-15 13:37 | Inpatient (IN) | payer MEDICARE ==
[2022-01-15 14:35] LABS: Hemoglobin 13.8 g/dL (12.0-16.0); Mean Corpuscular HGB CONC 32.7 g/dL (32.0-36.0); Mean Corpuscular Hemoglobin 28.8 pg (27.0-31.0); Mean Corpuscular Volume 88.1 fL (78.0-98.0); Mean Platelet Volume 9.6 fL (7.4-10.4); Platelet Count 273 thou/uL (130-400); RBC Distribution Width 14.5 % (11.5-14.5); Red Blood Cell (RBC) Count 4.77 mill/uL (4.20-5.40); White Blood Cell (WBC) Count 23.9 thou/uL (4.8-10.8)
[2022-01-15 14:40] LABS: INR-International Normal Ratio 1.2; PTT 29.3 sec (22.9-36.1)
[2022-01-15 14:53] LABS: Band 5 % (5-11); Lymphocytes 6 % (21-51); MDiff Complete? YES; Monocytes 5 % (0-10); Neutrophil 84 % (42-75); Platelet Morphology Comment Appears Adequate; RBC Morphology Normal
[2022-01-15 14:55] LABS: Bilirubin Negative (Negative); Blood, Urine 1+ (Negative); Clarity Turbid (Clear); Glucose, Urine (Dipstick) Normal (Negative); Ketone, Urine Negative (Negative); Leukocyte 500 Leu/uL (Negative); Nitrite Negative (Negative); Protein, Urine (Dipstick) 200 mg/dL (Neg-Trace); Specific Gravity, Urine 1.022 (1.002-1.036); Squamous Epithelial 0-3 HPF (0-3); Urobilinogen Normal mg/dL (Less than 2); WBC/HPF Greater than 50 HPF (0-3); pH, Urine 5.5 (5.0-9.0)
[2022-01-15 15:01] LABS: Bacteria/HPF 2+ HPF (None Seen); Yeast-Budding 1+ HPF (None Seen)
[2022-01-15 15:03] LABS: ALT (SGPT) 10 U/L (8-55); AST (SGOT) 8 U/L (5-34); Albumin 3.4 g/dL (3.4-4.8); Alkaline Phosphatase 62 U/L (40-110); Anion Gap 17 mmol/L (10-20); BUN (Urea Nitrogen) 41 mg/dL (9.8-20.1); Bilirubin, Total 1.4 mg/dL (0.2-1.2); CK (CPK) 28 U/L (29-168); Calc. Creatinine Clearance 0 mL/min (70-130); Calcium 9.3 mg/dL (7.8-10.44); Carbon Dioxide 22 mmol/L (23-31); Chloride 106 mmol/L (98-107); Estimated GFR 36; Globulin 3.3 g/dL (2.4-3.5); Glucose 191 mg/dL (83-110); Lipase 16 U/L (8-78); Magnesium 1.6 mg/dL (1.6-2.6); Potassium 3.2 mmol/L (3.5-5.1); Protein, Total 6.7 g/dL (5.8-8.1); Sodium 142 mmol/L (136-145)
[2022-01-15] MEDS ORDERED: Piperacillin/Tazobactam 4.5 GM VIAL ONE (15:13)
[2022-01-15 15:15] LABS: CKMB 0.9 ng/mL (0-6.6)
[2022-01-15] MEDS ORDERED: Iopamidol 370 76% 100 ML VIAL ONE (15:22)
[2022-01-15] MEDS ORDERED: Vancomycin 1.5 GRAM/300 ML BAG 1.5 GM in Premix Bag 1 BAG IVPB SCH (15:30)
[2022-01-15 15:41] LABS: Actual Bicarbonate (HCO3v) 22 mEq/L (22-28); Analyzer IN Cardio ER; Base Excess -1.2 mEq/L (-2.0 to +3.0); Calcium, Ionized (venous) 1.08 mmol/L (1.16-1.32); Chloride (VBG) 107 mmol/L (98-106); Hemoglobin (Hb) 14.3 g/dL (11.7-16.1); Potassium (VBG) 3.28 mmol/L (3.70-5.30); Sodium 142.8 mmol/L (133-146); pH (venous) 7.46 (7.32-7.43)
[2022-01-15] MEDS ORDERED: Magnesium 2 GM/50 ML BAG (IN WATER) ONE ×2 (15:42→15:43)
[2022-01-15] MEDS ORDERED: Aspirin 300 MG Suppository ONE (16:19)
[2022-01-15 17:27] LABS: Lactic Acid 1.9 mmol/L (0.5-2.2)
[2022-01-15] MEDS ORDERED: Potassium Chloride 20 MEQ/100 ML PREMIX BAG ONE (17:31)
[2022-01-15] MEDS ORDERED: Potassium Chloride 40 MEQ in Sodium Chloride 0.9% 250 ML 250 ML IVPB SCH (17:45)
[2022-01-15] MEDS ORDERED: Bisacodyl 5 MG TAB PO PRN (18:16)
[2022-01-15] MEDS ORDERED: HumaLOG 300 UNITS/3 ML VIAL SC PRN (18:16)
[2022-01-15] MEDS ORDERED: Ondansetron ODT 4 MG TAB PO PRN (18:16)
[2022-01-15] MEDS ORDERED: Dextrose 5% in Water 1,000 ML IV PRN (18:16)
[2022-01-15] MEDS ORDERED: Acetaminophen 325 MG TAB PO PRN (18:16)
[2022-01-15] MEDS ORDERED: Acetaminophen 650 MG Suppository PR PRN (18:16)
[2022-01-15] MEDS ORDERED: Senokot S 8.6-50 MG TAB PO PRN (18:16)
[2022-01-15] MEDS ORDERED: Dextrose 50% Abboject 50 ML SYRINGE SLOW IVP PRN (18:16)
[2022-01-15] MEDS ORDERED: Ondansetron PF 4 MG/2 ML Vial IVP PRN (18:16)
[2022-01-15 18:50] LABS: Troponin I 0.019 ng/mL (< 0.028)
[2022-01-15 20:55] VITALS: BMI 25.0
[2022-01-15] MEDS: Lactated Ringer's 1,000 ML IV SCH (21:22)
[2022-01-15] MEDS: cefTRIAXone\\ROCEPHIN 2 GM in Sodium Chloride 0.9% 100 ML IVPB SCH (21:22)
[2022-01-15 21:27] LABS: Troponin I 0.026 ng/mL (< 0.028)
[2022-01-16] MEDS: Lactated Ringer's 1,000 ML IV SCH ×3 (01:16→21:55)
[2022-01-16] MEDS ORDERED: Electrolyte Replacement Protocol 1 EACH FS PRN (04:56)
[2022-01-16 05:05] LABS: #Basophils 0.1 thou/uL (0.0-0.2); #Eosinphils 0.1 thou/uL (0.0-0.7); #Lymphocytes 1.5 thou/uL (1.20-3.40); #Monocytes 0.9 thou/uL (0.11-0.59); #Neutrophils 16.3 thou/uL (1.40-6.50); %Basophils 0.3 % (0.0-1.0); %Eosinophils 0.4 % (0.0-10.0); %Lymphocytes 8.2 % (21.0-51.0); %Monocytes 4.9 % (0.0-10.0); %Neutrophils 86.3 % (42.0-75.0); Hemoglobin 13.3 g/dL (12.0-16.0); Mean Corpuscular Volume 90.1 fL (78.0-98.0); Mean Platelet Volume 10.1 fL (7.4-10.4); Platelet Count 224 thou/uL (130-400); RBC Distribution Width 14.6 % (11.5-14.5); Red Blood Cell (RBC) Count 4.75 mill/uL (4.20-5.40); White Blood Cell (WBC) Count 18.9 thou/uL (4.8-10.8)
[2022-01-16 05:21] LABS: ALT (SGPT) 10 U/L (8-55); AST (SGOT) 9 U/L (5-34); Albumin 3.1 g/dL (3.4-4.8); Alkaline Phosphatase 61 U/L (40-110); Anion Gap 15 mmol/L (10-20); BUN (Urea Nitrogen) 34 mg/dL (9.8-20.1); Bilirubin, Total 0.7 mg/dL (0.2-1.2); Calc. Creatinine Clearance 33 mL/min (70-130); Calcium 8.8 mg/dL (7.8-10.44); Carbon Dioxide 23 mmol/L (23-31); Chloride 109 mmol/L (98-107); Estimated GFR 50; Globulin 3.2 g/dL (2.4-3.5); Glucose 166 mg/dL (83-110); Magnesium 2.1 mg/dL (1.6-2.6); Protein, Total 6.3 g/dL (5.8-8.1); Sodium 143 mmol/L (136-145)
[2022-01-16] MEDS: Enoxaparin Sodium 30 MG/0.3 ML SYRINGE SC SCH (09:35)
[2022-01-16] MEDS: Polyethylene Glycol 3350 17 GM Packet PO SCH (09:35)
[2022-01-16] MEDS: cefTRIAXone\\ROCEPHIN 2 GM in Sodium Chloride 0.9% 100 ML IVPB SCH (21:55)
[2022-01-16] MEDS: Fluconazole In NaCl,Iso-Osm 100 MG in Admixture Fee 2 EACH IVPB SCH (22:39)
[2022-01-17] MEDS: Lactated Ringer's 1,000 ML IV SCH ×2 (02:46→12:10)
[2022-01-17 05:10] LABS: #Eosinphils 0.1 thou/uL (0.0-0.7); #Lymphocytes 1.3 thou/uL (1.20-3.40); #Monocytes 0.6 thou/uL (0.11-0.59); #Neutrophils 9.6 thou/uL (1.40-6.50); %Basophils 0.2 % (0.0-1.0); %Eosinophils 1.2 % (0.0-10.0); %Lymphocytes 10.9 % (21.0-51.0); %Monocytes 4.9 % (0.0-10.0); %Neutrophils 82.9 % (42.0-75.0); Hemoglobin 11.7 g/dL (12.0-16.0); Mean Corpuscular HGB CONC 32.3 g/dL (32.0-36.0); Mean Corpuscular Volume 89.9 fL (78.0-98.0); Mean Platelet Volume 10.1 fL (7.4-10.4); Platelet Count 181 thou/uL (130-400); RBC Distribution Width 14.3 % (11.5-14.5); Red Blood Cell (RBC) Count 4.02 mill/uL (4.20-5.40); White Blood Cell (WBC) Count 11.6 thou/uL (4.8-10.8)
[2022-01-17] MEDS: Levothyroxine Sodium 50 MCG TAB PO SCH (05:28)
[2022-01-17 05:38] LABS: ALT (SGPT) 7 U/L (8-55); AST (SGOT) 9 U/L (5-34); Albumin 2.6 g/dL (3.4-4.8); Alkaline Phosphatase 55 U/L (40-110); Anion Gap 12 mmol/L (10-20); BUN (Urea Nitrogen) 19 mg/dL (9.8-20.1); Bilirubin, Total 0.5 mg/dL (0.2-1.2); Calc. Creatinine Clearance 48 mL/min (70-130); Calcium 8.6 mg/dL (7.8-10.44); Carbon Dioxide 25 mmol/L (23-31); Chloride 107 mmol/L (98-107); Estimated GFR 79; Globulin 2.5 g/dL (2.4-3.5); Glucose 116 mg/dL (83-110); Potassium 3.2 mmol/L (3.5-5.1); Protein, Total 5.1 g/dL (5.8-8.1); Sodium 141 mmol/L (136-145)
[2022-01-17 05:40] LABS: Troponin I 0.015 ng/mL (< 0.028)
[2022-01-17] MEDS ORDERED: Potassium Chloride 20 MEQ TAB PO SCH (08:45)
[2022-01-17] MEDS: Cholecalciferol 1,000 UNITS (25 MCG) TAB PO SCH (09:28)
[2022-01-17] MEDS: Aspirin 81 mg Enteric Coated Tablet PO SCH (09:28)
[2022-01-17] MEDS: Enoxaparin Sodium 30 MG/0.3 ML SYRINGE SC SCH (09:28)
[2022-01-17] MEDS: Polyethylene Glycol 3350 17 GM Packet PO SCH (09:29)
[2022-01-17] MEDS: Metoprolol Tartrate 50 MG TAB PO SCH (09:29)
[2022-01-17] MEDS ORDERED: HYDROcodone/Acetaminophen 5/325 mg Tablet PO PRN (11:15)
[2022-01-17] MEDS: cefTRIAXone\\ROCEPHIN 2 GM in Sodium Chloride 0.9% 100 ML IVPB SCH (19:52)
[2022-01-17] MEDS: Fluconazole In NaCl,Iso-Osm 100 MG in Admixture Fee 2 EACH IVPB SCH (21:29)
[2022-01-18] MEDS: Lactated Ringer's 1,000 ML IV SCH ×2 (00:07→13:40)
[2022-01-18 04:34] LABS: #Basophils 0.1 thou/uL (0.0-0.2); #Eosinphils 0.1 thou/uL (0.0-0.7); #Lymphocytes 1.6 thou/uL (1.20-3.40); #Monocytes 0.7 thou/uL (0.11-0.59); #Neutrophils 9.2 thou/uL (1.40-6.50); %Basophils 0.5 % (0.0-1.0); %Eosinophils 1.1 % (0.0-10.0); %Lymphocytes 13.4 % (21.0-51.0); %Monocytes 5.7 % (0.0-10.0); %Neutrophils 79.3 % (42.0-75.0); Hemoglobin 12.8 g/dL (12.0-16.0); Mean Corpuscular HGB CONC 31.1 g/dL (32.0-36.0); Mean Corpuscular Hemoglobin 28.2 pg (27.0-31.0); Mean Corpuscular Volume 90.6 fL (78.0-98.0); Mean Platelet Volume 10.3 fL (7.4-10.4); Platelet Count 183 thou/uL (130-400); RBC Distribution Width 14.8 % (11.5-14.5); Red Blood Cell (RBC) Count 4.54 mill/uL (4.20-5.40); White Blood Cell (WBC) Count 11.6 thou/uL (4.8-10.8)
[2022-01-18 04:50] LABS: Anion Gap 16 mmol/L (10-20); BUN (Urea Nitrogen) 10 mg/dL (9.8-20.1); Calc. Creatinine Clearance 51 mL/min (70-130); Calcium 8.9 mg/dL (7.8-10.44); Carbon Dioxide 24 mmol/L (23-31); Chloride 101 mmol/L (98-107); Estimated GFR 83; Glucose 106 mg/dL (83-110); Potassium 3.2 mmol/L (3.5-5.1); Sodium 138 mmol/L (136-145)
[2022-01-18] MEDS: Levothyroxine Sodium 50 MCG TAB PO SCH (05:41)
[2022-01-18] MEDS ORDERED: Potassium Chloride 20 MEQ TAB PO SCH (08:00)
[2022-01-18] MEDS: Cholecalciferol 1,000 UNITS (25 MCG) TAB PO SCH (12:14)
[2022-01-18] MEDS: Aspirin 81 mg Enteric Coated Tablet PO SCH (12:14)
[2022-01-18] MEDS: Metoprolol Tartrate 50 MG TAB PO SCH (12:14)
[2022-01-18] MEDS: Enoxaparin Sodium 30 MG/0.3 ML SYRINGE SC SCH (12:16)
[2022-01-18] MEDS: Polyethylene Glycol 3350 17 GM Packet PO SCH (12:17)
[2022-01-18] MEDS ORDERED: Metoprolol Tartrate 25 MG TAB PO SCH (13:00)
[2022-01-18] MEDS: HumaLOG 300 UNITS/3 ML VIAL SC PRN (18:27)
[2022-01-18] MEDS: metFORMIN 500 MG TAB PO SCH (18:27)
[2022-01-18] MEDS: Fluconazole In NaCl,Iso-Osm 100 MG in Admixture Fee 2 EACH IVPB SCH (20:38)
[2022-01-18] MEDS: cefTRIAXone\\ROCEPHIN 2 GM in Sodium Chloride 0.9% 100 ML IVPB SCH (20:38)
[2022-01-18] MEDS: hydrALAZINE 20 MG/ML VIAL SLOW IVP PRN (23:29)
[2022-01-19] MEDS: Lactated Ringer's 1,000 ML IV SCH ×2 (03:12→16:55)
[2022-01-19 05:07] LABS: Anion Gap 16 mmol/L (10-20); BUN (Urea Nitrogen) 9 mg/dL (9.8-20.1); Calc. Creatinine Clearance 51 mL/min (70-130); Calcium 8.8 mg/dL (7.8-10.44); Carbon Dioxide 22 mmol/L (23-31); Chloride 106 mmol/L (98-107); Estimated GFR 77; Glucose 125 mg/dL (83-110); Magnesium 1.1 mg/dL (1.6-2.6); Potassium 3.3 mmol/L (3.5-5.1); Sodium 141 mmol/L (136-145)
[2022-01-19] MEDS ORDERED: Magnesium Sulfate In Water 4 GM in Premix Bag 1 BAG IVPB SCH (05:30)
[2022-01-19] MEDS: Levothyroxine Sodium 50 MCG TAB PO SCH (05:48)
[2022-01-19 05:49] LABS: #Eosinphils 0.1 thou/uL (0.0-0.7); #Lymphocytes 1.6 thou/uL (1.20-3.40); #Monocytes 0.8 thou/uL (0.11-0.59); %Basophils 0.2 % (0.0-1.0); %Lymphocytes 15.2 % (21.0-51.0); %Monocytes 7.5 % (0.0-10.0); %Neutrophils 76.1 % (42.0-75.0); Mean Corpuscular HGB CONC 30.5 g/dL (32.0-36.0); Mean Corpuscular Hemoglobin 27.3 pg (27.0-31.0); Mean Corpuscular Volume 89.5 fL (78.0-98.0); Mean Platelet Volume 11.3 fL (7.4-10.4); Platelet Count 153 thou/uL (130-400); RBC Distribution Width 14.8 % (11.5-14.5); Red Blood Cell (RBC) Count 5.11 mill/uL (4.20-5.40); White Blood Cell (WBC) Count 10.5 thou/uL (4.8-10.8)
[2022-01-19] MEDS ORDERED: Potassium Chloride 20 MEQ TAB PO SCH (08:00)
[2022-01-19] MEDS: metFORMIN 500 MG TAB PO SCH ×2 (08:50→17:30)
[2022-01-19] MEDS: Polyethylene Glycol 3350 17 GM Packet PO SCH (08:50)
[2022-01-19] MEDS: Enoxaparin Sodium 30 MG/0.3 ML SYRINGE SC SCH (08:50)
[2022-01-19] MEDS: Metoprolol Tartrate 50 MG TAB PO SCH (08:51)
[2022-01-19] MEDS: Cholecalciferol 1,000 UNITS (25 MCG) TAB PO SCH (08:51)
[2022-01-19] MEDS: Aspirin 81 mg Enteric Coated Tablet PO SCH (08:51)
[2022-01-19] MEDS: HumaLOG 300 UNITS/3 ML VIAL SC PRN (12:11)
[2022-01-19] MEDS: Potassium Chloride 20 MEQ TAB PO SCH (17:30)
[2022-01-19] MEDS: cefTRIAXone\\ROCEPHIN 2 GM in Sodium Chloride 0.9% 100 ML IVPB SCH (21:05)
[2022-01-19] MEDS: Fluconazole In NaCl,Iso-Osm 100 MG in Admixture Fee 2 EACH IVPB SCH (22:37)
[2022-01-20 04:58] LABS: Anion Gap 13 mmol/L (10-20); BUN (Urea Nitrogen) 7 mg/dL (9.8-20.1); Calc. Creatinine Clearance 53 mL/min (70-130); Calcium 8.8 mg/dL (7.8-10.44); Carbon Dioxide 21 mmol/L (23-31); Chloride 105 mmol/L (98-107); Estimated GFR 81; Glucose 139 mg/dL (83-110); Potassium 4.4 mmol/L (3.5-5.1); Sodium 135 mmol/L (136-145)
[2022-01-20] MEDS: Lactated Ringer's 1,000 ML IV SCH ×2 (06:21→23:31)
[2022-01-20] MEDS: Levothyroxine Sodium 50 MCG TAB PO SCH (06:22)
[2022-01-20] MEDS: Cholecalciferol 1,000 UNITS (25 MCG) TAB PO SCH (08:31)
[2022-01-20] MEDS: Aspirin 81 mg Enteric Coated Tablet PO SCH (08:31)
[2022-01-20] MEDS: Polyethylene Glycol 3350 17 GM Packet PO SCH (08:31)
[2022-01-20] MEDS: metFORMIN 500 MG TAB PO SCH ×2 (08:31→16:21)
[2022-01-20] MEDS: Metoprolol Tartrate 50 MG TAB PO SCH (08:31)
[2022-01-20] MEDS: Enoxaparin Sodium 30 MG/0.3 ML SYRINGE SC SCH (08:31)
[2022-01-20] MEDS: Potassium Chloride 20 MEQ TAB PO SCH ×2 (08:31→16:21)
[2022-01-20] MEDS: Fluconazole In NaCl,Iso-Osm 100 MG in Admixture Fee 2 EACH IVPB SCH (22:04)
[2022-01-20] MEDS: hydrALAZINE 20 MG/ML VIAL SLOW IVP PRN (23:22)
[2022-01-21 00:27] LABS: Hemoglobin 12.6 g/dL (12.0-16.0); Mean Corpuscular HGB CONC 31.4 g/dL (32.0-36.0); Mean Corpuscular Volume 89.1 fL (78.0-98.0); Mean Platelet Volume 10.7 fL (7.4-10.4); Platelet Count 164 thou/uL (130-400); RBC Distribution Width 14.5 % (11.5-14.5); Red Blood Cell (RBC) Count 4.52 mill/uL (4.20-5.40); White Blood Cell (WBC) Count 11.2 thou/uL (4.8-10.8)
[2022-01-21 00:42] LABS: Anion Gap 15 mmol/L (10-20); BUN (Urea Nitrogen) 8 mg/dL (9.8-20.1); CRP (Inflammatory) 9.08 mg/dL (= or < 0.5); Calc. Creatinine Clearance 56 mL/min (70-130); Calcium 9.1 mg/dL (7.8-10.44); Carbon Dioxide 21 mmol/L (23-31); Chloride 104 mmol/L (98-107); Estimated GFR 83; Glucose 114 mg/dL (83-110); Potassium 4.6 mmol/L (3.5-5.1); Sodium 135 mmol/L (136-145)
[2022-01-21] MEDS: Levothyroxine Sodium 50 MCG TAB PO SCH (06:46)
[2022-01-21] MEDS: Potassium Chloride 20 MEQ TAB PO SCH ×2 (09:32→17:25)
[2022-01-21] MEDS: Enoxaparin Sodium 30 MG/0.3 ML SYRINGE SC SCH (09:32)
[2022-01-21] MEDS: Metoprolol Tartrate 50 MG TAB PO SCH (09:32)
[2022-01-21] MEDS: Aspirin 81 mg Enteric Coated Tablet PO SCH (09:33)
[2022-01-21] MEDS: metFORMIN 500 MG TAB PO SCH ×2 (09:33→17:25)
[2022-01-21] MEDS: Lactated Ringer's 1,000 ML IV SCH ×2 (09:33→21:19)
[2022-01-21] MEDS: Cholecalciferol 1,000 UNITS (25 MCG) TAB PO SCH (09:33)
[2022-01-21] MEDS: Polyethylene Glycol 3350 17 GM Packet PO SCH (09:33)
[2022-01-21] MEDS: Fluconazole In NaCl,Iso-Osm 100 MG in Admixture Fee 2 EACH IVPB SCH (21:18)
[2022-01-22] MEDS: Levothyroxine Sodium 50 MCG TAB PO SCH (06:51)
[2022-01-22] MEDS: Polyethylene Glycol 3350 17 GM Packet PO SCH (09:36)
[2022-01-22] MEDS: Enoxaparin Sodium 30 MG/0.3 ML SYRINGE SC SCH (09:36)
[2022-01-22] MEDS: Potassium Chloride 20 MEQ TAB PO SCH ×2 (09:36→17:54)
[2022-01-22] MEDS: metFORMIN 500 MG TAB PO SCH ×2 (09:37→17:54)
[2022-01-22] MEDS: Metoprolol Tartrate 50 MG TAB PO SCH (09:37)
[2022-01-22] MEDS: Lactated Ringer's 1,000 ML IV SCH (09:37)
[2022-01-22] MEDS: Aspirin 81 mg Enteric Coated Tablet PO SCH (09:37)
[2022-01-22] MEDS: Cholecalciferol 1,000 UNITS (25 MCG) TAB PO SCH (09:37)
[2022-01-22] MEDS: HumaLOG 300 UNITS/3 ML VIAL SC PRN (12:10)
[2022-01-22 19:48] VITALS: BP 135/86; TEMP 98.2
== END 2022-01-22 19:44 | DRG 871 ==
LOC: ERS 13:37 → 2NO 17:45 → OBSVTOIN 17:45
PROVIDERS: ADMIT Hospitalist; ATTEND Hospitalist
DX: B37.7 Candidal sepsis (principal); G93.41 Metabolic encephalopathy; N17.9 Acute kidney failure, unspecified; N18.4 Chronic kidney disease, stage 4 (severe); I13.0 Hypertensive heart and chronic kidney disease with heart failure and stage 1 through stage 4 chronic kidney disease, or unspecified chronic kidney disease; Z20.822 Contact with and (suspected) exposure to COVID-19; B37.41 Candidal cystitis and urethritis; K59.01 Slow transit constipation; E55.9 Vitamin D deficiency, unspecified; E03.9 Hypothyroidism, unspecified; E11.22 Type 2 diabetes mellitus with diabetic chronic kidney disease; I50.9 Heart failure, unspecified; R07.89 Other chest pain; E87.6 Hypokalemia; E78.00 Pure hypercholesterolemia, unspecified; E11.51 Type 2 diabetes mellitus with diabetic peripheral angiopathy without gangrene; Z79.890 Hormone replacement therapy; Z79.899 Other long term (current) drug therapy; Z79.84 Long term (current) use of oral hypoglycemic drugs; Z79.4 Long term (current) use of insulin; Z85.3 Personal history of malignant neoplasm of breast; Z90.11 Acquired absence of right breast and nipple; Z90.49 Acquired absence of other specified parts of digestive tract; Z98.51 Tubal ligation status; Z87.440 Personal history of urinary (tract) infections
CPT/HCPCS: 36415; 36416; 51701; 71045; 74177; 80048; 80053; 81003; 81015; 82550; 82553; 82805; 83605; 83690; 83735; 84443; 84484; 85025; 85027; 85610; 85730; 86140; 87040; 87086; 93005; 94760; 96365; 96366; 96367; G0378; J0360; J0696; J1450; J1650; J1815; J2543; J3370; J3475; J3480; J3490; J7050; J7120; Q9967; U0003; U0005

== ENCOUNTER 2022-04-04 15:53 | Inpatient (IN) | payer MEDICARE ==
[2022-04-04 17:05] LABS: #Eosinphils 0.1 thou/uL (0.0-0.7); #Lymphocytes 1.2 thou/uL (1.20-3.40); #Monocytes 0.6 thou/uL (0.11-0.59); #Neutrophils 10.9 thou/uL (1.40-6.50); %Eosinophils 0.6 % (0.0-10.0); %Lymphocytes 9.4 % (21.0-51.0); %Monocytes 4.6 % (0.0-10.0); %Neutrophils 85.4 % (42.0-75.0); Hemoglobin 12.8 g/dL (12.0-16.0); Mean Corpuscular HGB CONC 31.6 g/dL (32.0-36.0); Mean Corpuscular Hemoglobin 27.3 pg (27.0-31.0); Mean Corpuscular Volume 86.3 fl (78.0-98.0); Platelet Count 292 10x3/uL (130-400); RBC Distribution Width 15.2 % (11.5-14.5); Red Blood Cell (RBC) Count 4.71 mill/uL (4.20-5.40); White Blood Cell (WBC) Count 12.8 10x3/uL (4.8-10.8)
[2022-04-04 17:13] LABS: Bacteria/HPF 4+ HPF (None Seen); Bilirubin Negative (Negative); Blood, Urine 2+ (Negative); Glucose, Urine (Dipstick) Normal (Negative); Ketone, Urine Negative (Negative); Leukocyte 500 Leu/uL (Negative); Nitrite Negative (Negative); Protein, Urine (Dipstick) 200 mg/dL (Neg-Trace); RBC/HPF 21-50 HPF (0-3); Specific Gravity, Urine 1.018 (1.002-1.036); Squamous Epithelial 0-3 HPF (0-3); Urobilinogen Normal mg/dL (Less than 2); WBC/HPF Greater than 50 HPF (0-3)
[2022-04-04 17:14] LABS: Clarity Turbid (Clear)
[2022-04-04 17:26] LABS: ALT (SGPT) Less than 7 U/L (8-55); AST (SGOT) 8 U/L (5-34); Albumin 3.2 g/dL (3.4-4.8); Alkaline Phosphatase 102 U/L (40-110); Anion Gap 15 mmol/L (10-20); BUN (Urea Nitrogen) 19 mg/dL (9.8-20.1); Bilirubin, Total 0.4 mg/dL (0.2-1.2); Calc. Creatinine Clearance 0 mL/min (70-130); Calcium 9.6 mg/dL (7.8-10.44); Carbon Dioxide 28 mmol/L (23-31); Chloride 97 mmol/L (98-107); Estimated GFR 54; Globulin 4.2 g/dL (2.4-3.5); Glucose 201 mg/dL (83-110); Protein, Total 7.4 g/dL (5.8-8.1); Sodium 137 mmol/L (136-145)
[2022-04-04] MEDS ORDERED: cefTRIAXone\\ROCEPHIN 1 GM VIAL ONE (18:10)
[2022-04-04 19:55] LABS: Lactic Acid 2.1 mmol/L (0.5-2.2)
[2022-04-04] MEDS ORDERED: Dextrose 5% in Water 1,000 ML IV PRN (19:57)
[2022-04-04] MEDS ORDERED: Dextrose 50% Abboject 50 ML SYRINGE SLOW IVP PRN (19:57)
[2022-04-04] MEDS ORDERED: Acetaminophen 325 MG TAB PO PRN (19:57)
[2022-04-04] MEDS ORDERED: Acetaminophen 650 MG Suppository PR PRN (19:57)
[2022-04-04] MEDS ORDERED: HumaLOG 300 UNITS/3 ML VIAL SC PRN (19:57)
[2022-04-04] MEDS ORDERED: Calcium Carbonate 500 MG ChewTAB PO PRN (20:07)
[2022-04-04] MEDS ORDERED: Potassium Chloride 20 MEQ TAB PO SCH (21:00)
[2022-04-04 23:02] LABS: CRP (Inflammatory) 2.39 mg/dL (= or < 0.5); Magnesium 1.6 mg/dL (1.6-2.6); Phosphorus 3.2 mg/dL (2.3-4.7)
[2022-04-04] MEDS: Lactated Ringer's 1,000 ML IV SCH (23:53)
[2022-04-05 00:23] VITALS: BMI 25.0
[2022-04-05] MEDS ORDERED: Acetaminophen 325 MG TAB PO PRN (01:37)
[2022-04-05] MEDS ORDERED: Acetaminophen 650 MG Suppository PR PRN (01:38)
[2022-04-05] MEDS ORDERED: Magnesium 2 GM/50 ML(in water) 2 GM in Premix Bag 1 BAG IVPB SCH (01:45)
[2022-04-05 03:44] LABS: Hemoglobin A1c 7.9 % (4.0-6.0)
[2022-04-05] MEDS: Levothyroxine Sodium 50 MCG TAB PO SCH (05:56)
[2022-04-05] MEDS ORDERED: Acetaminophen 650 MG Suppository PR SCH (06:00)
[2022-04-05 07:39] LABS: ALT (SGPT) Less than 7 U/L (8-55); AST (SGOT) 8 U/L (5-34); Albumin 2.7 g/dL (3.4-4.8); Alkaline Phosphatase 83 U/L (40-110); Anion Gap 12 mmol/L (10-20); BUN (Urea Nitrogen) 12 mg/dL (9.8-20.1); Bilirubin, Total 0.4 mg/dL (0.2-1.2); Calc. Creatinine Clearance 48 mL/min (70-130); Carbon Dioxide 27 mmol/L (23-31); Chloride 103 mmol/L (98-107); Estimated GFR 81; Globulin 3.4 g/dL (2.4-3.5); Glucose 154 mg/dL (83-110); Magnesium 2.1 mg/dL (1.6-2.6); Protein, Total 6.1 g/dL (5.8-8.1); Sodium 139 mmol/L (136-145)
[2022-04-05] MEDS ORDERED: Potassium Chloride 20 MEQ TAB PO SCH ×2 (08:30→13:00)
[2022-04-05] MEDS: Metoprolol Tartrate 50 MG TAB PO SCH ×2 (08:42→21:33)
[2022-04-05] MEDS: Enoxaparin Sodium 40 MG/0.4 ML SYRINGE SC SCH (08:42)
[2022-04-05] MEDS: Cholecalciferol 1,000 UNITS (25 MCG) TAB PO SCH (08:42)
[2022-04-05] MEDS: Aspirin 81 mg Enteric Coated Tablet PO SCH (08:42)
[2022-04-05] MEDS: Lactated Ringer's 1,000 ML IV SCH ×2 (08:42→17:11)
[2022-04-05] MEDS ORDERED: Lisinopril 5 MG TAB PO SCH (09:45)
[2022-04-05] MEDS: Simvastatin 10 MG TAB PO SCH (12:28)
[2022-04-05] MEDS: cefTRIAXone\\ROCEPHIN 1 GM in Sodium Chloride 0.9% 100 ML IVPB SCH (17:11)
[2022-04-06] MEDS: Lactated Ringer's 1,000 ML IV SCH ×2 (00:24→12:12)
[2022-04-06] MEDS: Levothyroxine Sodium 50 MCG TAB PO SCH (05:12)
[2022-04-06 07:07] LABS: ALT (SGPT) Less than 7 U/L (8-55); AST (SGOT) 10 U/L (5-34); Albumin 2.9 g/dL (3.4-4.8); Alkaline Phosphatase 81 U/L (40-110); Anion Gap 13 mmol/L (10-20); BUN (Urea Nitrogen) 9 mg/dL (9.8-20.1); Bilirubin, Total 0.3 mg/dL (0.2-1.2); Calc. Creatinine Clearance 46 mL/min (70-130); Calcium 9.4 mg/dL (7.8-10.44); Carbon Dioxide 24 mmol/L (23-31); Chloride 104 mmol/L (98-107); Estimated GFR 77; Globulin 3.6 g/dL (2.4-3.5); Glucose 154 mg/dL (83-110); Potassium 3.7 mmol/L (3.5-5.1); Protein, Total 6.5 g/dL (5.8-8.1); Sodium 137 mmol/L (136-145)
[2022-04-06] MEDS: Cholecalciferol 1,000 UNITS (25 MCG) TAB PO SCH (08:12)
[2022-04-06] MEDS: Aspirin 81 mg Enteric Coated Tablet PO SCH (08:12)
[2022-04-06] MEDS: Simvastatin 10 MG TAB PO SCH (08:12)
[2022-04-06] MEDS: Metoprolol Tartrate 50 MG TAB PO SCH ×2 (08:12→20:09)
[2022-04-06] MEDS ORDERED: Lisinopril 5 MG TAB PO SCH ×2 (09:00→10:30)
[2022-04-06] MEDS: Enoxaparin Sodium 40 MG/0.4 ML SYRINGE SC SCH (09:06)
[2022-04-06] MEDS: Estradiol 0.01% Vaginal Cream 42.5 gm Tube VAG SCH (10:16)
[2022-04-06] MEDS ORDERED: Lisinopril 10 MG TAB PO SCH (10:30)
[2022-04-06] MEDS: cefTRIAXone\\ROCEPHIN 1 GM in Sodium Chloride 0.9% 100 ML IVPB SCH (16:47)
[2022-04-06] MEDS: HumaLOG 300 UNITS/3 ML VIAL SC PRN (20:13)
[2022-04-07] MEDS: Lactated Ringer's 1,000 ML IV SCH ×2 (00:37→08:54)
[2022-04-07] MEDS: Levothyroxine Sodium 50 MCG TAB PO SCH (05:25)
[2022-04-07] MEDS: Metoprolol Tartrate 50 MG TAB PO SCH ×2 (08:52→21:13)
[2022-04-07] MEDS: Enoxaparin Sodium 40 MG/0.4 ML SYRINGE SC SCH (08:52)
[2022-04-07] MEDS: Simvastatin 10 MG TAB PO SCH (08:52)
[2022-04-07] MEDS: Aspirin 81 mg Enteric Coated Tablet PO SCH (08:52)
[2022-04-07] MEDS: Lisinopril 10 MG TAB PO SCH (08:52)
[2022-04-07] MEDS: Cholecalciferol 1,000 UNITS (25 MCG) TAB PO SCH (08:53)
[2022-04-07] MEDS ORDERED: Lisinopril 10 MG TAB PO SCH (09:00)
[2022-04-07] MEDS ORDERED: Cefdinir 300 MG CAP PO SCH (09:30)
[2022-04-07] MEDS: Cefdinir 300 MG CAP PO SCH (21:13)
[2022-04-08] MEDS: HumaLOG 300 UNITS/3 ML VIAL SC PRN (00:10)
[2022-04-08] MEDS: Levothyroxine Sodium 50 MCG TAB PO SCH (05:26)
[2022-04-08 06:44] LABS: #Eosinphils 0.1 thou/uL (0.0-0.7); #Lymphocytes 1.7 thou/uL (1.20-3.40); #Monocytes 0.5 thou/uL (0.11-0.59); #Neutrophils 6.8 thou/uL (1.40-6.50); %Basophils 0.3 % (0.0-1.0); %Eosinophils 1.6 % (0.0-10.0); %Lymphocytes 18.6 % (21.0-51.0); %Monocytes 5.8 % (0.0-10.0); %Neutrophils 73.7 % (42.0-75.0); Hemoglobin 11.2 g/dL (12.0-16.0); Mean Corpuscular HGB CONC 31.3 g/dL (32.0-36.0); Mean Corpuscular Hemoglobin 27.6 pg (27.0-31.0); Mean Platelet Volume 9.6 fL (7.4-10.4); Platelet Count 244 10x3/uL (130-400); RBC Distribution Width 15.4 % (11.5-14.5); Red Blood Cell (RBC) Count 4.07 mill/uL (4.20-5.40); White Blood Cell (WBC) Count 9.3 10x3/uL (4.8-10.8)
[2022-04-08 07:05] LABS: Anion Gap 10 mmol/L (10-20); BUN (Urea Nitrogen) 9 mg/dL (9.8-20.1); Calc. Creatinine Clearance 47 mL/min (70-130); Calcium 9.1 mg/dL (7.8-10.44); Carbon Dioxide 25 mmol/L (23-31); Chloride 103 mmol/L (98-107); Estimated GFR 80; Glucose 109 mg/dL (83-110); Potassium 3.2 mmol/L (3.5-5.1); Sodium 135 mmol/L (136-145)
[2022-04-08] MEDS: Cholecalciferol 1,000 UNITS (25 MCG) TAB PO SCH (08:25)
[2022-04-08] MEDS: Metoprolol Tartrate 50 MG TAB PO SCH ×2 (08:25→21:52)
[2022-04-08] MEDS: Aspirin 81 mg Enteric Coated Tablet PO SCH (08:25)
[2022-04-08] MEDS: Enoxaparin Sodium 40 MG/0.4 ML SYRINGE SC SCH (08:25)
[2022-04-08] MEDS: Lisinopril 10 MG TAB PO SCH (08:25)
[2022-04-08] MEDS: Cefdinir 300 MG CAP PO SCH ×2 (08:25→21:52)
[2022-04-08] MEDS: Simvastatin 10 MG TAB PO SCH (08:26)
[2022-04-08] MEDS ORDERED: FLU VACC QS2022-23(65YR UP)/PF 240 MCG/0.7 ML SYRINGE IM ONE (09:00)
[2022-04-08] MEDS ORDERED: Potassium Chloride 20 MEQ TAB PO SCH (09:45)
[2022-04-08 20:31] VITALS: TEMP 98.5
[2022-04-09] MEDS: Levothyroxine Sodium 50 MCG TAB PO SCH (05:00)
[2022-04-09 07:38] LABS: Anion Gap 14 mmol/L (10-20); BUN (Urea Nitrogen) 8 mg/dL (9.8-20.1); Calc. Creatinine Clearance 41 mL/min (70-130); Calcium 9.6 mg/dL (7.8-10.44); Carbon Dioxide 23 mmol/L (23-31); Chloride 103 mmol/L (98-107); Estimated GFR 68; Glucose 140 mg/dL (83-110); Potassium 4.5 mmol/L (3.5-5.1); Sodium 135 mmol/L (136-145)
[2022-04-09 07:48] VITALS: BP 148/89
[2022-04-09] MEDS: Aspirin 81 mg Enteric Coated Tablet PO SCH (08:20)
[2022-04-09] MEDS: Cefdinir 300 MG CAP PO SCH (08:21)
[2022-04-09] MEDS: Cholecalciferol 1,000 UNITS (25 MCG) TAB PO SCH (08:21)
[2022-04-09] MEDS: Lisinopril 10 MG TAB PO SCH (08:21)
[2022-04-09] MEDS: Metoprolol Tartrate 50 MG TAB PO SCH (08:21)
[2022-04-09] MEDS: Simvastatin 10 MG TAB PO SCH (08:22)
[2022-04-09] MEDS: Enoxaparin Sodium 40 MG/0.4 ML SYRINGE SC SCH (08:22)
[2022-04-09] MEDS: Estradiol 0.01% Vaginal Cream 42.5 gm Tube VAG SCH (08:22)
[2022-04-09] MEDS ORDERED: Polyethylene Glycol 3350 17 GM Packet PO SCH (12:16)
[2022-04-10] MEDS ORDERED: Polyethylene Glycol 3350 17 GM Packet PO SCH (09:00)
== END 2022-04-09 17:28 | DRG 871 ==
LOC: ERS 15:53 → T4-A 19:07
PROVIDERS: ADMIT Student in an Organized Health Care Education/Training Program; ATTEND Student in an Organized Health Care Education/Training Program
DX: A41.4 Sepsis due to anaerobes (principal); G93.41 Metabolic encephalopathy; N30.00 Acute cystitis without hematuria; E87.20 Acidosis, unspecified; N17.9 Acute kidney failure, unspecified; I13.0 Hypertensive heart and chronic kidney disease with heart failure and stage 1 through stage 4 chronic kidney disease, or unspecified chronic kidney disease; F05 Delirium due to known physiological condition; Z20.822 Contact with and (suspected) exposure to COVID-19; E78.5 Hyperlipidemia, unspecified; E11.51 Type 2 diabetes mellitus with diabetic peripheral angiopathy without gangrene; E55.9 Vitamin D deficiency, unspecified; E03.9 Hypothyroidism, unspecified; N18.30 Chronic kidney disease, stage 3 unspecified; E11.22 Type 2 diabetes mellitus with diabetic chronic kidney disease; E87.6 Hypokalemia; R94.31 Abnormal electrocardiogram [ECG] [EKG]; N95.2 Postmenopausal atrophic vaginitis; H91.90 Unspecified hearing loss, unspecified ear; F01.50 Vascular dementia, unspecified severity, without behavioral disturbance, psychotic disturbance, mood disturbance, and anxiety; K59.00 Constipation, unspecified; Z79.899 Other long term (current) drug therapy; Z79.890 Hormone replacement therapy; Z79.82 Long term (current) use of aspirin; Z79.4 Long term (current) use of insulin; Z85.3 Personal history of malignant neoplasm of breast; Z90.11 Acquired absence of right breast and nipple; Z90.49 Acquired absence of other specified parts of digestive tract; Z98.51 Tubal ligation status
CPT/HCPCS: 36415; 36416; 51701; 70450; 71045; 80048; 80053; 81003; 81015; 82570; 83036; 83605; 83735; 83880; 84100; 84145; 84300; 84484; 85025; 86140; 87040; 87077; 87086; 87186; 93005; 96361; 96365; J0696; J1650; J3475; J3490; J7120; U0003; U0005

== ENCOUNTER 2022-04-11 13:37 | Inpatient (IN) | payer MEDICARE ==
[2022-04-11] MEDS ORDERED: cefTRIAXone\\ROCEPHIN 1 GM VIAL ONE (14:14)
[2022-04-11] MEDS ORDERED: Acetaminophen 650 MG Suppository ONE (14:14)
[2022-04-11 14:22] LABS: #Basophils 0.1 thou/uL (0.0-0.2); #Eosinphils 0.1 thou/uL (0.0-0.7); #Lymphocytes 2.4 thou/uL (1.20-3.40); #Monocytes 0.7 thou/uL (0.11-0.59); #Neutrophils 15.1 thou/uL (1.40-6.50); %Basophils 0.3 % (0.0-1.0); %Eosinophils 0.4 % (0.0-10.0); %Lymphocytes 13.2 % (21.0-51.0); %Monocytes 3.9 % (0.0-10.0); %Neutrophils 82.3 % (42.0-75.0); Hemoglobin 12.9 g/dL (12.0-16.0); Mean Corpuscular HGB CONC 31.6 g/dL (32.0-36.0); Mean Corpuscular Hemoglobin 27.8 pg (27.0-31.0); Mean Corpuscular Volume 87.8 fl (78.0-98.0); Mean Platelet Volume 9.9 fL (7.4-10.4); Platelet Count 337 10x3/uL (130-400); RBC Distribution Width 15.5 % (11.5-14.5); Red Blood Cell (RBC) Count 4.66 mill/uL (4.20-5.40); White Blood Cell (WBC) Count 18.3 10x3/uL (4.8-10.8)
[2022-04-11 14:43] LABS: ALT (SGPT) Less than 7 U/L (8-55); AST (SGOT) 10 U/L (5-34); Albumin 3.3 g/dL (3.4-4.8); Alkaline Phosphatase 95 U/L (40-110); Anion Gap 16 mmol/L (10-20); BUN (Urea Nitrogen) 15 mg/dL (9.8-20.1); Bilirubin, Total 0.3 mg/dL (0.2-1.2); Calc. Creatinine Clearance 0 mL/min (70-130); Calcium 9.9 mg/dL (7.8-10.44); Carbon Dioxide 22 mmol/L (23-31); Chloride 103 mmol/L (98-107); Estimated GFR 37; Globulin 4.1 g/dL (2.4-3.5); Glucose 256 mg/dL (83-110); Potassium 3.9 mmol/L (3.5-5.1); Protein, Total 7.4 g/dL (5.8-8.1); Sodium 137 mmol/L (136-145)
[2022-04-11] MEDS ORDERED: Vancomycin 1 GM/200 ML (FROZEN) BAG ONE (15:08)
[2022-04-11] MEDS ORDERED: Acetaminophen 325 MG TAB PO PRN ×2 (17:07→17:16)
[2022-04-11] MEDS ORDERED: Ondansetron ODT 4 MG TAB PO PRN (17:07)
[2022-04-11] MEDS ORDERED: Ondansetron PF 4 MG/2 ML Vial IVP PRN (17:07)
[2022-04-11] MEDS ORDERED: HumaLOG 300 UNITS/3 ML VIAL SC PRN ×2 (17:16)
[2022-04-11] MEDS ORDERED: Dextrose 50% Abboject 50 ML SYRINGE SLOW IVP PRN (17:16)
[2022-04-11] MEDS ORDERED: Dextrose 5% in Water 1,000 ML IV PRN (17:16)
[2022-04-11] MEDS ORDERED: Calcium Carbonate 500 MG ChewTAB PO PRN (17:16)
[2022-04-11 17:41] LABS: Lactic Acid 3.7 mmol/L (0.5-2.2)
[2022-04-11 17:53] LABS: Bacteria/HPF 4+ HPF (None Seen); Bilirubin Negative (Negative); Blood, Urine 1+ (Negative); Clarity Turbid (Clear); Glucose, Urine (Dipstick) Normal (Negative); Ketone, Urine Negative (Negative); Leukocyte 250 Leu/uL (Negative); Nitrite Negative (Negative); Protein, Urine (Dipstick) 30 mg/dL (Neg-Trace); Specific Gravity, Urine 1.007 (1.002-1.036); Squamous Epithelial 0-3 HPF (0-3); Urobilinogen Normal mg/dL (Less than 2); WBC/HPF 21-50 HPF (0-3)
[2022-04-11] MEDS: Sodium Chloride 0.9% 1,000 ML IV SCH (19:30)
[2022-04-11 19:57] LABS: SARS-CoV-2 NAA Rapid Test Not Detected (NotDetected)
[2022-04-11] MEDS: Simvastatin 10 MG TAB PO SCH (23:44)
[2022-04-11] MEDS: Docusate 100 MG CAP PO SCH (23:44)
[2022-04-12 05:12] LABS: #Eosinphils 0.1 thou/uL (0.0-0.7); #Lymphocytes 1.6 thou/uL (1.20-3.40); #Monocytes 0.6 thou/uL (0.11-0.59); #Neutrophils 9.2 thou/uL (1.40-6.50); %Basophils 0.2 % (0.0-1.0); %Eosinophils 1.1 % (0.0-10.0); %Lymphocytes 14.1 % (21.0-51.0); %Monocytes 4.9 % (0.0-10.0); %Neutrophils 79.7 % (42.0-75.0); Mean Corpuscular HGB CONC 31.1 g/dL (32.0-36.0); Mean Corpuscular Hemoglobin 27.3 pg (27.0-31.0); Platelet Count 264 10x3/uL (130-400); RBC Distribution Width 15.5 % (11.5-14.5); Red Blood Cell (RBC) Count 4.01 mill/uL (4.20-5.40); White Blood Cell (WBC) Count 11.5 10x3/uL (4.8-10.8)
[2022-04-12 05:42] LABS: ALT (SGPT) Less than 7 U/L (8-55); AST (SGOT) 8 U/L (5-34); Albumin 2.9 g/dL (3.4-4.8); Alkaline Phosphatase 80 U/L (40-110); Anion Gap 11 mmol/L (10-20); BUN (Urea Nitrogen) 12 mg/dL (9.8-20.1); Bilirubin, Total 0.3 mg/dL (0.2-1.2); Calc. Creatinine Clearance 36 mL/min (70-130); Calcium 9.1 mg/dL (7.8-10.44); Carbon Dioxide 22 mmol/L (23-31); Chloride 106 mmol/L (98-107); Estimated GFR 60; Globulin 3.5 g/dL (2.4-3.5); Glucose 133 mg/dL (83-110); Potassium 3.3 mmol/L (3.5-5.1); Protein, Total 6.4 g/dL (5.8-8.1); Sodium 136 mmol/L (136-145)
[2022-04-12] MEDS: Levothyroxine Sodium 50 MCG TAB PO SCH (06:13)
[2022-04-12] MEDS ORDERED: Vancomycin Dose by Levels Sliding Scale (Wt <71) FS SCH (06:15)
[2022-04-12] MEDS: Sodium Chloride 0.9% 1,000 ML IV SCH (06:17)
[2022-04-12] MEDS: Cholecalciferol 1,000 UNITS (25 MCG) TAB PO SCH (09:41)
[2022-04-12] MEDS: Famotidine 20 MG TAB PO SCH (09:41)
[2022-04-12] MEDS: Enoxaparin Sodium 40 MG/0.4 ML SYRINGE SC SCH (09:41)
[2022-04-12] MEDS: Docusate 100 MG CAP PO SCH ×2 (09:41→20:45)
[2022-04-12] MEDS: Aspirin 81 mg Enteric Coated Tablet PO SCH (09:41)
[2022-04-12] MEDS ORDERED: Lisinopril 10 MG TAB PO SCH (10:15)
[2022-04-12] MEDS ORDERED: Potassium Chloride 20 MEQ TAB PO SCH (10:45)
[2022-04-12] MEDS: cefTRIAXone\\ROCEPHIN 1 GM in Sodium Chloride 0.9% 100 ML IVPB SCH (13:51)
[2022-04-12] MEDS: Simvastatin 10 MG TAB PO SCH (20:45)
[2022-04-13] MEDS: Levothyroxine Sodium 50 MCG TAB PO SCH (05:46)
[2022-04-13] MEDS: Famotidine 20 MG TAB PO SCH (09:16)
[2022-04-13] MEDS: Docusate 100 MG CAP PO SCH ×2 (09:16→21:56)
[2022-04-13] MEDS: Cholecalciferol 1,000 UNITS (25 MCG) TAB PO SCH (09:17)
[2022-04-13] MEDS: Lisinopril 10 MG TAB PO SCH (09:17)
[2022-04-13] MEDS: Aspirin 81 mg Enteric Coated Tablet PO SCH (09:17)
[2022-04-13] MEDS: Enoxaparin Sodium 40 MG/0.4 ML SYRINGE SC SCH (09:17)
[2022-04-13 09:21] LABS: #Eosinphils 0.1 thou/uL (0.0-0.7); #Lymphocytes 1.3 thou/uL (1.20-3.40); #Monocytes 0.6 thou/uL (0.11-0.59); #Neutrophils 8.3 thou/uL (1.40-6.50); %Basophils 0.5 % (0.0-1.0); %Eosinophils 1.1 % (0.0-10.0); %Lymphocytes 12.5 % (21.0-51.0); %Monocytes 5.6 % (0.0-10.0); %Neutrophils 80.4 % (42.0-75.0); Hemoglobin 12.2 g/dL (12.0-16.0); Mean Corpuscular HGB CONC 30.6 g/dL (32.0-36.0); Mean Corpuscular Hemoglobin 27.2 pg (27.0-31.0); Mean Corpuscular Volume 88.7 fl (78.0-98.0); Mean Platelet Volume 9.5 fL (7.4-10.4); Platelet Count 270 10x3/uL (130-400); RBC Distribution Width 15.5 % (11.5-14.5); Red Blood Cell (RBC) Count 4.48 mill/uL (4.20-5.40); White Blood Cell (WBC) Count 10.3 10x3/uL (4.8-10.8)
[2022-04-13 09:42] LABS: ALT (SGPT) Less than 7 U/L (8-55); AST (SGOT) 9 U/L (5-34); Albumin 2.9 g/dL (3.4-4.8); Alkaline Phosphatase 85 U/L (40-110); Anion Gap 13 mmol/L (10-20); BUN (Urea Nitrogen) 8 mg/dL (9.8-20.1); Bilirubin, Total 0.4 mg/dL (0.2-1.2); Calc. Creatinine Clearance 38 mL/min (70-130); Calcium 9.5 mg/dL (7.8-10.44); Carbon Dioxide 22 mmol/L (23-31); Chloride 105 mmol/L (98-107); Estimated GFR 66; Globulin 3.6 g/dL (2.4-3.5); Glucose 141 mg/dL (83-110); Potassium 3.5 mmol/L (3.5-5.1); Protein, Total 6.5 g/dL (5.8-8.1); Sodium 136 mmol/L (136-145)
[2022-04-13 11:07] VITALS: BMI 23.7
[2022-04-13] MEDS ORDERED: Polyethylene Glycol 3350 17 GM Packet PO PRN (11:48)
[2022-04-13] MEDS: cefTRIAXone\\ROCEPHIN 1 GM in Sodium Chloride 0.9% 100 ML IVPB SCH (15:05)
[2022-04-13] MEDS: Simvastatin 10 MG TAB PO SCH (21:56)
[2022-04-14] MEDS: Levothyroxine Sodium 50 MCG TAB PO SCH (05:58)
[2022-04-14 06:28] LABS: #Eosinphils 0.2 thou/uL (0.0-0.7); #Lymphocytes 1.8 thou/uL (1.20-3.40); #Monocytes 0.5 thou/uL (0.11-0.59); #Neutrophils 6.9 thou/uL (1.40-6.50); %Basophils 0.5 % (0.0-1.0); %Eosinophils 1.6 % (0.0-10.0); %Lymphocytes 19.2 % (21.0-51.0); %Monocytes 5.5 % (0.0-10.0); %Neutrophils 73.2 % (42.0-75.0); Hemoglobin 12.1 g/dL (12.0-16.0); Mean Corpuscular HGB CONC 32.9 g/dL (32.0-36.0); Mean Corpuscular Hemoglobin 28.6 pg (27.0-31.0); Mean Corpuscular Volume 86.8 fl (78.0-98.0); Mean Platelet Volume 9.1 fL (7.4-10.4); Platelet Count 259 10x3/uL (130-400); RBC Distribution Width 15.2 % (11.5-14.5); Red Blood Cell (RBC) Count 4.24 mill/uL (4.20-5.40); White Blood Cell (WBC) Count 9.4 10x3/uL (4.8-10.8)
[2022-04-14 07:05] LABS: Anion Gap 13 mmol/L (10-20); Calc. Creatinine Clearance 36 mL/min (70-130); Calcium 9.4 mg/dL (7.8-10.44); Carbon Dioxide 22 mmol/L (23-31); Chloride 102 mmol/L (98-107); Estimated GFR 62; Glucose 144 mg/dL (83-110); Potassium 3.5 mmol/L (3.5-5.1); Sodium 133 mmol/L (136-145)
[2022-04-14 08:50] LABS: BUN (Urea Nitrogen) 11 mg/dL (9.8-20.1)
[2022-04-14] MEDS: Lisinopril 10 MG TAB PO SCH (09:15)
[2022-04-14] MEDS: Docusate 100 MG CAP PO SCH ×2 (09:16→20:00)
[2022-04-14] MEDS: Famotidine 20 MG TAB PO SCH (09:16)
[2022-04-14] MEDS: Enoxaparin Sodium 40 MG/0.4 ML SYRINGE SC SCH (09:16)
[2022-04-14] MEDS: Cholecalciferol 1,000 UNITS (25 MCG) TAB PO SCH (09:16)
[2022-04-14] MEDS: Aspirin 81 mg Enteric Coated Tablet PO SCH (09:16)
[2022-04-14] MEDS ORDERED: Potassium Chloride 20 MEQ TAB PO SCH (10:15)
[2022-04-14] MEDS ORDERED: Vancomycin 1 GM in Premix Bag 1 BAG IVPB SCH (13:00)
[2022-04-14] MEDS: Simvastatin 10 MG TAB PO SCH (20:00)
[2022-04-14 20:48] VITALS: BP 130/81; TEMP 97.4
[2022-04-14] MEDS ORDERED: Vancomycin HCl 0.75 GM in Sodium Chloride 0.9% 250 ML 300 ML IVPB SCH (21:00)
[2022-04-14] MEDS ORDERED: Metoprolol Tartrate 50 MG TAB PO SCH (21:00)
[2022-04-15] MEDS ORDERED: Lisinopril 10 MG TAB PO SCH (09:00)
== END 2022-04-14 21:00 | DRG 871 ==
LOC: ERS 13:37 → 2NO 16:00 → ERHOLD 16:07 → 2NO 23:24
PROVIDERS: ADMIT Student in an Organized Health Care Education/Training Program; ATTEND Student in an Organized Health Care Education/Training Program
DX: A41.81 Sepsis due to Enterococcus (principal); N17.0 Acute kidney failure with tubular necrosis; N39.0 Urinary tract infection, site not specified; G93.49 Other encephalopathy; R65.20 Severe sepsis without septic shock; Z66 Do not resuscitate; Z20.822 Contact with and (suspected) exposure to COVID-19; R94.31 Abnormal electrocardiogram [ECG] [EKG]; F01.50 Vascular dementia, unspecified severity, without behavioral disturbance, psychotic disturbance, mood disturbance, and anxiety; E03.9 Hypothyroidism, unspecified; E11.51 Type 2 diabetes mellitus with diabetic peripheral angiopathy without gangrene; E55.9 Vitamin D deficiency, unspecified; I50.9 Heart failure, unspecified; I11.0 Hypertensive heart disease with heart failure; I48.91 Unspecified atrial fibrillation; E87.6 Hypokalemia; K59.00 Constipation, unspecified; K21.9 Gastro-esophageal reflux disease without esophagitis; Z79.899 Other long term (current) drug therapy; Z79.890 Hormone replacement therapy; Z79.82 Long term (current) use of aspirin; Z79.4 Long term (current) use of insulin; Z90.11 Acquired absence of right breast and nipple; Z90.49 Acquired absence of other specified parts of digestive tract; Z98.51 Tubal ligation status
CPT/HCPCS: 36415; 36416; 71045; 74176; 80048; 80053; 81003; 81015; 83605; 83880; 84484; 85025; 87040; 87077; 87086; 87186; 93005; 93306; 96365; 96367; J0696; J1650; J3370; J3370-JW; J3490; J7050

== ENCOUNTER 2022-04-17 15:16 | Inpatient (IN) | payer MEDICARE ==
[2022-04-17 16:27] LABS: #Eosinphils 0.1 thou/uL (0.0-0.7); #Lymphocytes 1.7 thou/uL (1.20-3.40); #Monocytes 0.8 thou/uL (0.11-0.59); #Neutrophils 11.4 thou/uL (1.40-6.50); %Basophils 0.3 % (0.0-1.0); %Eosinophils 0.6 % (0.0-10.0); %Lymphocytes 12.3 % (21.0-51.0); %Monocytes 5.6 % (0.0-10.0); %Neutrophils 81.3 % (42.0-75.0); Hemoglobin 12.2 g/dL (12.0-16.0); Mean Corpuscular HGB CONC 31.6 g/dL (32.0-36.0); Mean Corpuscular Hemoglobin 27.9 pg (27.0-31.0); Mean Corpuscular Volume 88.5 fl (78.0-98.0); Mean Platelet Volume 9.7 fL (7.4-10.4); Platelet Count 304 10x3/uL (130-400); RBC Distribution Width 15.4 % (11.5-14.5); Red Blood Cell (RBC) Count 4.37 mill/uL (4.20-5.40); White Blood Cell (WBC) Count 14.1 10x3/uL (4.8-10.8)
[2022-04-17 16:28] LABS: Bacteria/HPF 3+ HPF (None Seen); Bilirubin Negative (Negative); Blood, Urine 2+ (Negative); Clarity Turbid (Clear); Glucose, Urine (Dipstick) Normal (Negative); Ketone, Urine Negative (Negative); Leukocyte 500 Leu/uL (Negative); Nitrite Negative (Negative); Protein, Urine (Dipstick) 200 mg/dL (Neg-Trace); RBC/HPF 21-50 HPF (0-3); Specific Gravity, Urine 1.026 (1.002-1.036); WBC/HPF Greater than 50 HPF (0-3); pH, Urine 6.5 (5.0-9.0)
[2022-04-17 16:37] LABS: Amphetamine Not Detected (NotDetected); Barbiturates Screen Not Detected (NotDetected); Benzodiazepine Screen Not Detected (NotDetected); Cocaine Metabolite Screen Not Detected (NotDetected); Methadone Not Detected (NotDetected); Methamphetamine Not Detected (NotDetected); Opiate Screen Not Detected (NotDetected); Oxycodone Screen Not Detected (NotDetected); Phencyclidine (PCP) Not Detected (NotDetected); THC/Cannabinoid Screen Not Detected (NotDetected); Tricyclic Screen Not Detected (NotDetected)
[2022-04-17 16:48] LABS: ALT (SGPT) Less than 7 U/L (8-55); AST (SGOT) 12 U/L (5-34); Acetaminophen Less than 10.0 mcg/mL (10.0-30.0); Albumin 3.2 g/dL (3.4-4.8); Alcohol Less than 10 mg/dL (Less than 10); Alkaline Phosphatase 79 U/L (40-110); Anion Gap 14 mmol/L (10-20); BUN (Urea Nitrogen) 28 mg/dL (9.8-20.1); Bilirubin, Total 0.3 mg/dL (0.2-1.2); Calc. Creatinine Clearance 0 mL/min (70-130); Calcium 10.1 mg/dL (7.8-10.44); Carbon Dioxide 21 mmol/L (23-31); Chloride 100 mmol/L (98-107); Estimated GFR 44; Glucose 185 mg/dL (83-110); Potassium 4.1 mmol/L (3.5-5.1); Protein, Total 7.2 g/dL (5.8-8.1); Salicylate Less than 8.0 mg/dL (15.0-30.0); Sodium 131 mmol/L (136-145)
[2022-04-17] MEDS ORDERED: Piperacillin/Tazobactam 3.375 GM VIAL ONE (17:12)
[2022-04-17 19:41] LABS: Lactic Acid 1.8 mmol/L (0.5-2.2)
[2022-04-17] MEDS ORDERED: Acetaminophen 325 MG TAB PO PRN (20:46)
[2022-04-17] MEDS ORDERED: Ondansetron PF 4 MG/2 ML Vial IVP PRN (20:46)
[2022-04-17] MEDS ORDERED: Ondansetron ODT 4 MG TAB PO PRN (20:46)
[2022-04-17] MEDS ORDERED: HumaLOG 300 UNITS/3 ML VIAL SC PRN (20:52)
[2022-04-17] MEDS ORDERED: Dextrose 50% Abboject 50 ML SYRINGE SLOW IVP PRN (20:52)
[2022-04-17] MEDS ORDERED: Dextrose 5% in Water 1,000 ML IV PRN (20:52)
[2022-04-17] MEDS ORDERED: cefTRIAXone\\ROCEPHIN 1 GM in Sodium Chloride 0.9% 100 ML IVPB SCH (21:00)
[2022-04-17] MEDS ORDERED: Lactated Ringer's 1,000 ML IV SCH (21:00)
[2022-04-17] MEDS ORDERED: HYDROcodone/Acetaminophen 5/325 mg Tablet PO PRN (21:28)
[2022-04-17 23:21] VITALS: BMI 24.8
[2022-04-17] MEDS: Lactated Ringer's 1,000 ML IV SCH (23:46)
[2022-04-18 00:40] LABS: Lactic Acid 1.5 mmol/L (0.5-2.2)
[2022-04-18] MEDS ORDERED: Ampicillin 2 GM in Sodium Chloride 0.9% 100 ML IVPB SCH (03:00)
[2022-04-18] MEDS: Lactated Ringer's 1,000 ML IV SCH ×3 (05:12→19:40)
[2022-04-18] MEDS: Levothyroxine Sodium 50 MCG TAB PO SCH (05:26)
[2022-04-18 07:14] LABS: #Basophils 0.1 thou/uL (0.0-0.2); #Eosinphils 0.2 thou/uL (0.0-0.7); #Lymphocytes 1.7 thou/uL (1.20-3.40); #Monocytes 0.8 thou/uL (0.11-0.59); #Neutrophils 9.2 thou/uL (1.40-6.50); %Basophils 0.4 % (0.0-1.0); %Eosinophils 1.6 % (0.0-10.0); %Lymphocytes 14.2 % (21.0-51.0); %Monocytes 6.6 % (0.0-10.0); %Neutrophils 77.3 % (42.0-75.0); Hemoglobin 11.5 g/dL (12.0-16.0); Mean Corpuscular HGB CONC 32.3 g/dL (32.0-36.0); Mean Corpuscular Hemoglobin 28.2 pg (27.0-31.0); Mean Corpuscular Volume 87.4 fl (78.0-98.0); Mean Platelet Volume 9.6 fL (7.4-10.4); Platelet Count 266 10x3/uL (130-400); RBC Distribution Width 15.2 % (11.5-14.5); Red Blood Cell (RBC) Count 4.06 mill/uL (4.20-5.40); White Blood Cell (WBC) Count 11.9 10x3/uL (4.8-10.8)
[2022-04-18 07:48] LABS: Anion Gap 15 mmol/L (10-20); BUN (Urea Nitrogen) 20 mg/dL (9.8-20.1); Calc. Creatinine Clearance 40 mL/min (70-130); Calcium 9.7 mg/dL (7.8-10.44); Carbon Dioxide 21 mmol/L (23-31); Chloride 104 mmol/L (98-107); Estimated GFR 66; Glucose 146 mg/dL (83-110); Potassium 3.8 mmol/L (3.5-5.1); Sodium 136 mmol/L (136-145)
[2022-04-18] MEDS ORDERED: FLU VACC QS2022-23(65YR UP)/PF 240 MCG/0.7 ML SYRINGE IM ONE (09:00)
[2022-04-18] MEDS: Aspirin 81 mg Enteric Coated Tablet PO SCH (09:02)
[2022-04-18] MEDS: Docusate 100 MG CAP PO SCH ×2 (09:02→20:00)
[2022-04-18] MEDS: Cholecalciferol 1,000 UNITS (25 MCG) TAB PO SCH (09:02)
[2022-04-18] MEDS: Metoprolol Tartrate 50 MG TAB PO SCH ×2 (09:03→20:00)
[2022-04-18] MEDS: Lisinopril 10 MG TAB PO SCH (09:03)
[2022-04-18] MEDS: Enoxaparin Sodium 30 MG/0.3 ML SYRINGE SC SCH (09:06)
[2022-04-18] MEDS: Pantoprazole 40 MG VIAL IVP SCH (09:06)
[2022-04-18] MEDS ORDERED: Magnevist 469MG/ML 20 ML VIAL ONE (10:27)
[2022-04-18] MEDS: Vancomycin HCl 750 MG in Sodium Chloride 0.9% 250 ML 250 ML IVPB SCH (12:26)
[2022-04-18] MEDS: Estradiol 0.01% Vaginal Cream 42.5 gm Tube VAG SCH (16:27)
[2022-04-18] MEDS ORDERED: hydrALAZINE 20 MG/ML VIAL SLOW IVP PRN (18:19)
[2022-04-18] MEDS ORDERED: cefTRIAXone\\ROCEPHIN 1 GM in Sodium Chloride 0.9% 100 ML IVPB SCH (23:59)
[2022-04-19] MEDS: cefTRIAXone\\ROCEPHIN 1 GM in Sodium Chloride 0.9% 100 ML IVPB SCH ×2 (00:11→23:50)
[2022-04-19] MEDS: hydrALAZINE 20 MG/ML VIAL SLOW IVP SCH ×2 (00:15→06:29)
[2022-04-19] MEDS: Levothyroxine Sodium 50 MCG TAB PO SCH (00:23)
[2022-04-19] MEDS: Lactated Ringer's 1,000 ML IV SCH ×3 (03:21→23:45)
[2022-04-19 07:39] LABS: #Eosinphils 0.1 thou/uL (0.0-0.7); #Lymphocytes 1.7 thou/uL (1.20-3.40); #Monocytes 0.8 thou/uL (0.11-0.59); #Neutrophils 8.2 thou/uL (1.40-6.50); %Basophils 0.4 % (0.0-1.0); %Eosinophils 1.2 % (0.0-10.0); %Lymphocytes 15.4 % (21.0-51.0); %Monocytes 6.9 % (0.0-10.0); %Neutrophils 76.1 % (42.0-75.0); Hemoglobin 11.6 g/dL (12.0-16.0); Mean Corpuscular HGB CONC 31.3 g/dL (32.0-36.0); Mean Corpuscular Hemoglobin 27.8 pg (27.0-31.0); Mean Corpuscular Volume 88.8 fl (78.0-98.0); Mean Platelet Volume 9.2 fL (7.4-10.4); Platelet Count 275 10x3/uL (130-400); RBC Distribution Width 15.1 % (11.5-14.5); Red Blood Cell (RBC) Count 4.19 mill/uL (4.20-5.40); White Blood Cell (WBC) Count 10.8 10x3/uL (4.8-10.8)
[2022-04-19 07:43] LABS: Lactic Acid 1.6 mmol/L (0.5-2.2)
[2022-04-19 07:59] LABS: Anion Gap 14 mmol/L (10-20); BUN (Urea Nitrogen) 10 mg/dL (9.8-20.1); Calc. Creatinine Clearance 45 mL/min (70-130); Calcium 9.6 mg/dL (7.8-10.44); Carbon Dioxide 21 mmol/L (23-31); Chloride 101 mmol/L (98-107); Estimated GFR 76; Glucose 117 mg/dL (83-110); Potassium 3.4 mmol/L (3.5-5.1); Sodium 133 mmol/L (136-145)
[2022-04-19] MEDS: Aspirin 81 mg Enteric Coated Tablet PO SCH (08:13)
[2022-04-19] MEDS: Cholecalciferol 1,000 UNITS (25 MCG) TAB PO SCH (08:14)
[2022-04-19] MEDS: Docusate 100 MG CAP PO SCH ×2 (08:14→20:04)
[2022-04-19] MEDS: Pantoprazole 40 MG VIAL IVP SCH (08:14)
[2022-04-19] MEDS: Lisinopril 10 MG TAB PO SCH (08:14)
[2022-04-19] MEDS: Enoxaparin Sodium 30 MG/0.3 ML SYRINGE SC SCH (08:14)
[2022-04-19] MEDS: Metoprolol Tartrate 50 MG TAB PO SCH ×2 (08:14→20:04)
[2022-04-19] MEDS: Vancomycin HCl 750 MG in Sodium Chloride 0.9% 250 ML 250 ML IVPB SCH (10:55)
[2022-04-20] MEDS: Levothyroxine Sodium 50 MCG TAB PO SCH (05:27)
[2022-04-20 07:05] LABS: #Basophils 0.1 thou/uL (0.0-0.2); #Eosinphils 0.1 thou/uL (0.0-0.7); #Lymphocytes 1.6 thou/uL (1.20-3.40); #Monocytes 0.7 thou/uL (0.11-0.59); #Neutrophils 9.3 thou/uL (1.40-6.50); %Basophils 0.5 % (0.0-1.0); %Eosinophils 0.7 % (0.0-10.0); %Lymphocytes 13.5 % (21.0-51.0); %Monocytes 5.8 % (0.0-10.0); %Neutrophils 79.5 % (42.0-75.0); Hemoglobin 12.4 g/dL (12.0-16.0); Mean Corpuscular HGB CONC 31.5 g/dL (32.0-36.0); Mean Corpuscular Hemoglobin 27.5 pg (27.0-31.0); Mean Corpuscular Volume 87.3 fl (78.0-98.0); Mean Platelet Volume 9.3 fL (7.4-10.4); Platelet Count 286 10x3/uL (130-400); RBC Distribution Width 15.2 % (11.5-14.5); Red Blood Cell (RBC) Count 4.51 mill/uL (4.20-5.40); White Blood Cell (WBC) Count 11.7 10x3/uL (4.8-10.8)
[2022-04-20 07:24] LABS: Anion Gap 15 mmol/L (10-20); BUN (Urea Nitrogen) 7 mg/dL (9.8-20.1); Calc. Creatinine Clearance 47 mL/min (70-130); Calcium 9.8 mg/dL (7.8-10.44); Carbon Dioxide 23 mmol/L (23-31); Chloride 99 mmol/L (98-107); Estimated GFR 81; Glucose 153 mg/dL (83-110); Potassium 3.5 mmol/L (3.5-5.1); Sodium 133 mmol/L (136-145)
[2022-04-20] MEDS: Lisinopril 10 MG TAB PO SCH (08:31)
[2022-04-20] MEDS: Metoprolol Tartrate 50 MG TAB PO SCH (08:31)
[2022-04-20] MEDS: Docusate 100 MG CAP PO SCH (08:32)
[2022-04-20] MEDS: Enoxaparin Sodium 30 MG/0.3 ML SYRINGE SC SCH (08:32)
[2022-04-20] MEDS: Aspirin 81 mg Enteric Coated Tablet PO SCH (08:32)
[2022-04-20] MEDS: Estradiol 0.01% Vaginal Cream 42.5 gm Tube VAG SCH (08:32)
[2022-04-20] MEDS: Cholecalciferol 1,000 UNITS (25 MCG) TAB PO SCH (08:32)
[2022-04-20] MEDS: Pantoprazole 40 MG VIAL IVP SCH (08:33)
[2022-04-20 10:40] LABS: Vancomycin, Trough 9.6 ug/mL
[2022-04-20] MEDS ORDERED: Vancomycin 1 GM in Premix Bag 1 BAG IVPB SCH (11:00)
[2022-04-20 15:09] VITALS: BP 128/73; TEMP 98
[2022-04-21] MEDS ORDERED: Enoxaparin Sodium 40 MG/0.4 ML SYRINGE SC SCH (09:00)
== END 2022-04-20 17:07 | DRG 884 ==
LOC: ERS 15:16 → T4-B 17:40
PROVIDERS: ADMIT Family Medicine; ATTEND Family Medicine
DX: F01.50 Vascular dementia, unspecified severity, without behavioral disturbance, psychotic disturbance, mood disturbance, and anxiety (principal); G93.41 Metabolic encephalopathy; N18.4 Chronic kidney disease, stage 4 (severe); I13.0 Hypertensive heart and chronic kidney disease with heart failure and stage 1 through stage 4 chronic kidney disease, or unspecified chronic kidney disease; N17.9 Acute kidney failure, unspecified; E87.1 Hypo-osmolality and hyponatremia; E03.9 Hypothyroidism, unspecified; E78.00 Pure hypercholesterolemia, unspecified; I50.9 Heart failure, unspecified; E11.51 Type 2 diabetes mellitus with diabetic peripheral angiopathy without gangrene; E11.22 Type 2 diabetes mellitus with diabetic chronic kidney disease; I48.91 Unspecified atrial fibrillation; E86.0 Dehydration; Z66 Do not resuscitate; N95.2 Postmenopausal atrophic vaginitis; E87.6 Hypokalemia; Z20.822 Contact with and (suspected) exposure to COVID-19; E55.9 Vitamin D deficiency, unspecified; Z90.49 Acquired absence of other specified parts of digestive tract; Z98.890 Other specified postprocedural states; Z98.51 Tubal ligation status; Z79.82 Long term (current) use of aspirin; Z79.899 Other long term (current) drug therapy
CPT/HCPCS: 36415; 36416; 51701; 70450; 70553; 71045; 80048; 80053; 80202; 80306; 80307; 81003; 81015; 82140; 83605; 85025; 87040; 87086; 87205; 93005; 96365; A9579; C9113; J0290; J0360; J0696; J1650; J1815; J2543; J3370; J3370-JW; J3490; J7050; J7120; U0003; U0005

== ENCOUNTER 2022-05-29 18:30 | Inpatient (IN) | payer MEDICARE, MEDICAID ==
[2022-05-29 19:20] LABS: Bacteria/HPF 4+ HPF (None Seen); Bilirubin Negative (Negative); Blood, Urine 2+ (Negative); Clarity Extra Turbid (Clear); Glucose, Urine (Dipstick) Normal (Negative); Ketone, Urine Negative (Negative); Leukocyte 500 Leu/uL (Negative); Nitrite Negative (Negative); Protein, Urine (Dipstick) 300 mg/dL (Neg-Trace); Specific Gravity, Urine 1.016 (1.002-1.036); WBC/HPF Greater than 50 HPF (0-3)
[2022-05-29 19:29] LABS: #Eosinphils 0.1 thou/uL (0.0-0.7); #Monocytes 0.7 thou/uL (0.11-0.59); #Neutrophils 10.2 thou/uL (1.40-6.50); %Basophils 0.2 % (0.0-1.0); %Monocytes 5.6 % (0.0-10.0); %Neutrophils 78.2 % (42.0-75.0); Hemoglobin 12.2 g/dL (12.0-16.0); Mean Corpuscular HGB CONC 32.6 g/dL (32.0-36.0); Mean Corpuscular Hemoglobin 27.3 pg (27.0-31.0); Mean Corpuscular Volume 83.8 fl (78.0-98.0); Mean Platelet Volume 8.7 fL (7.4-10.4); Platelet Count 342 10x3/uL (130-400); RBC Distribution Width 14.6 % (11.5-14.5); Red Blood Cell (RBC) Count 4.46 mill/uL (4.20-5.40)
[2022-05-29 19:51] LABS: ALT (SGPT) Less than 7 U/L (8-55); AST (SGOT) 7 U/L (5-34); Albumin 3.1 g/dL (3.4-4.8); Alkaline Phosphatase 92 U/L (40-110); Anion Gap 14 mmol/L (10-20); BUN (Urea Nitrogen) 22 mg/dL (9.8-20.1); Bilirubin, Total 0.3 mg/dL (0.2-1.2); Calc. Creatinine Clearance 0 mL/min (70-130); Calcium 9.7 mg/dL (7.8-10.44); Carbon Dioxide 25 mmol/L (23-31); Chloride 97 mmol/L (98-107); Estimated GFR 31; Globulin 4.2 g/dL (2.4-3.5); Glucose 139 mg/dL (83-110); Potassium 3.3 mmol/L (3.5-5.1); Protein, Total 7.3 g/dL (5.8-8.1); Sodium 133 mmol/L (136-145)
[2022-05-29] MEDS ORDERED: cefTRIAXone\\ROCEPHIN 2 GM VIAL ONE (20:34)
[2022-05-29] MEDS ORDERED: Acetaminophen 500 MG TAB ONE (20:34)
[2022-05-29] MEDS ORDERED: HumaLOG 300 UNITS/3 ML VIAL SC PRN (22:00)
[2022-05-29] MEDS ORDERED: Dextrose 5% in Water 1,000 ML IV PRN (22:00)
[2022-05-29] MEDS ORDERED: Ondansetron PF 4 MG/2 ML Vial IVP PRN (22:00)
[2022-05-29] MEDS ORDERED: Ondansetron ODT 4 MG TAB PO PRN (22:00)
[2022-05-29] MEDS ORDERED: Heparin 5,000 UNITS/ML VIAL SC SCH (22:00)
[2022-05-29] MEDS ORDERED: Dextrose 50% Abboject 50 ML SYRINGE SLOW IVP PRN (22:00)
[2022-05-29] MEDS ORDERED: Sodium Chloride 0.9% 1,000 ML IV SCH (22:00)
[2022-05-29] MEDS ORDERED: Acetaminophen 325 MG TAB PO PRN (22:00)
[2022-05-29] MEDS ORDERED: HYDROcodone/Acetaminophen 5/325 mg Tablet PO PRN (22:14)
[2022-05-29 22:50] LABS: Magnesium 1.4 mg/dL (1.6-2.6); Phosphorus 2.7 mg/dL (2.3-4.7)
[2022-05-30] MEDS ORDERED: Heparin 10,000 UNITS/ 10 ML VIAL ONE (00:06)
[2022-05-30] MEDS ORDERED: Potassium Chloride 20 MEQ TAB ONE ×2 (00:06→00:46)
[2022-05-30] MEDS ORDERED: Magnesium 2 GM/50 ML BAG (IN WATER) ONE (00:37)
[2022-05-30] MEDS: Potassium Chloride 20 MEQ TAB PO SCH ×2 (00:42→01:05)
[2022-05-30] MEDS ORDERED: Magnesium 2 GM/50 ML(in water) 2 GM in Premix Bag 1 BAG IVPB SCH ×2 (00:45→10:15)
[2022-05-30] MEDS ORDERED: Potassium Chloride 20 MEQ in Premix Bag 1 BAG IVPB SCH (01:15)
[2022-05-30 01:55] LABS: INR-International Normal Ratio 1.2; Prothrombin Time 15.2 sec (12.0-14.7)
[2022-05-30 01:56] LABS: PTT 32.7 sec (22.9-36.1)
[2022-05-30] MEDS ORDERED: Electrolyte Replacement Protocol 1 EACH FS SCH (02:00)
[2022-05-30] MEDS ORDERED: Potassium Chloride 20 MEQ/100 ML PREMIX BAG ONE (03:01)
[2022-05-30] MEDS: Levothyroxine Sodium 50 MCG TAB PO SCH (06:14)
[2022-05-30] MEDS: Docusate 100 MG CAP PO SCH ×2 (08:35→21:09)
[2022-05-30] MEDS ORDERED: Metoprolol Tartrate 50 MG TAB ONE (08:37)
[2022-05-30] MEDS ORDERED: Cholecalciferol 1,000 UNITS (25 MCG) TAB ONE (08:38)
[2022-05-30] MEDS: Heparin 5,000 UNITS/ML VIAL SC SCH ×2 (08:39→21:09)
[2022-05-30] MEDS: Cholecalciferol 1,000 UNITS (25 MCG) TAB PO SCH (09:03)
[2022-05-30] MEDS: Metoprolol Tartrate 50 MG TAB PO SCH ×2 (09:03→21:10)
[2022-05-30 09:08] LABS: #Basophils 0.1 thou/uL (0.0-0.2); #Eosinphils 0.1 thou/uL (0.0-0.7); #Lymphocytes 1.1 thou/uL (1.20-3.40); #Monocytes 0.6 thou/uL (0.11-0.59); #Neutrophils 12.1 thou/uL (1.40-6.50); %Basophils 0.4 % (0.0-1.0); %Eosinophils 0.9 % (0.0-10.0); %Lymphocytes 7.9 % (21.0-51.0); %Monocytes 4.3 % (0.0-10.0); %Neutrophils 86.5 % (42.0-75.0); Hemoglobin 11.2 g/dL (12.0-16.0); Mean Corpuscular HGB CONC 32.3 g/dL (32.0-36.0); Mean Corpuscular Hemoglobin 27.1 pg (27.0-31.0); Mean Corpuscular Volume 83.9 fl (78.0-98.0); Mean Platelet Volume 8.3 fL (7.4-10.4); Platelet Count 346 10x3/uL (130-400); RBC Distribution Width 14.4 % (11.5-14.5); Red Blood Cell (RBC) Count 4.13 mill/uL (4.20-5.40)
[2022-05-30 09:29] LABS: Anion Gap 14 mmol/L (10-20); BUN (Urea Nitrogen) 18 mg/dL (9.8-20.1); Calc. Creatinine Clearance 0 mL/min (70-130); Calcium 9.2 mg/dL (7.8-10.44); Carbon Dioxide 20 mmol/L (23-31); Chloride 105 mmol/L (98-107); Estimated GFR 41; Glucose 131 mg/dL (83-110); Potassium 3.7 mmol/L (3.5-5.1); Sodium 135 mmol/L (136-145)
[2022-05-30 13:25] VITALS: BMI 24.6
[2022-05-30] MEDS: cefTRIAXone\\ROCEPHIN 1 GM in Sodium Chloride 0.9% 100 ML IVPB SCH (21:08)
[2022-05-30] MEDS: Simvastatin 10 MG TAB PO SCH (21:09)
[2022-05-31] MEDS: Levothyroxine Sodium 50 MCG TAB PO SCH (05:03)
[2022-05-31 07:11] LABS: #Eosinphils 0.2 thou/uL (0.0-0.7); #Lymphocytes 1.8 thou/uL (1.20-3.40); #Monocytes 0.6 thou/uL (0.11-0.59); #Neutrophils 9.8 thou/uL (1.40-6.50); %Basophils 0.1 % (0.0-1.0); %Eosinophils 1.3 % (0.0-10.0); %Lymphocytes 14.5 % (21.0-51.0); %Monocytes 4.7 % (0.0-10.0); %Neutrophils 79.5 % (42.0-75.0); Mean Corpuscular HGB CONC 32.5 g/dL (32.0-36.0); Mean Corpuscular Hemoglobin 27.2 pg (27.0-31.0); Mean Corpuscular Volume 83.6 fl (78.0-98.0); Mean Platelet Volume 8.2 fL (7.4-10.4); Platelet Count 337 10x3/uL (130-400); RBC Distribution Width 14.7 % (11.5-14.5); Red Blood Cell (RBC) Count 4.06 mill/uL (4.20-5.40); White Blood Cell (WBC) Count 12.4 10x3/uL (4.8-10.8)
[2022-05-31 07:32] LABS: Anion Gap 14 mmol/L (10-20); BUN (Urea Nitrogen) 17 mg/dL (9.8-20.1); Calc. Creatinine Clearance 27 mL/min (70-130); Calcium 9.5 mg/dL (7.8-10.44); Carbon Dioxide 22 mmol/L (23-31); Chloride 101 mmol/L (98-107); Estimated GFR 41; Glucose 137 mg/dL (83-110); Potassium 3.7 mmol/L (3.5-5.1); Sodium 133 mmol/L (136-145)
[2022-05-31] MEDS: Metoprolol Tartrate 50 MG TAB PO SCH ×2 (09:04→20:59)
[2022-05-31] MEDS: Cholecalciferol 1,000 UNITS (25 MCG) TAB PO SCH (09:04)
[2022-05-31] MEDS: Heparin 5,000 UNITS/ML VIAL SC SCH ×2 (09:05→20:58)
[2022-05-31] MEDS: Docusate 100 MG CAP PO SCH ×2 (09:05→20:59)
[2022-05-31] MEDS: HumaLOG 300 UNITS/3 ML VIAL SC PRN (20:58)
[2022-05-31] MEDS: Simvastatin 10 MG TAB PO SCH (20:58)
[2022-05-31] MEDS: cefTRIAXone\\ROCEPHIN 1 GM in Sodium Chloride 0.9% 100 ML IVPB SCH (21:13)
[2022-06-01] MEDS: Levothyroxine Sodium 50 MCG TAB PO SCH (06:17)
[2022-06-01 07:22] LABS: #Eosinphils 0.1 thou/uL (0.0-0.7); #Lymphocytes 1.5 thou/uL (1.20-3.40); #Monocytes 0.6 thou/uL (0.11-0.59); #Neutrophils 9.5 thou/uL (1.40-6.50); %Basophils 0.3 % (0.0-1.0); %Eosinophils 0.7 % (0.0-10.0); %Monocytes 5.2 % (0.0-10.0); %Neutrophils 80.8 % (42.0-75.0); Hemoglobin 10.8 g/dL (12.0-16.0); Mean Corpuscular HGB CONC 32.3 g/dL (32.0-36.0); Mean Corpuscular Hemoglobin 27.1 pg (27.0-31.0); Mean Platelet Volume 8.8 fL (7.4-10.4); Platelet Count 346 10x3/uL (130-400); RBC Distribution Width 14.6 % (11.5-14.5); Red Blood Cell (RBC) Count 3.99 mill/uL (4.20-5.40); White Blood Cell (WBC) Count 11.7 10x3/uL (4.8-10.8)
[2022-06-01 07:34] LABS: Anion Gap 16 mmol/L (10-20); BUN (Urea Nitrogen) 17 mg/dL (9.8-20.1); Calc. Creatinine Clearance 24 mL/min (70-130); Calcium 9.6 mg/dL (7.8-10.44); Carbon Dioxide 22 mmol/L (23-31); Chloride 100 mmol/L (98-107); Estimated GFR 37; Glucose 117 mg/dL (83-110); Potassium 3.7 mmol/L (3.5-5.1); Sodium 134 mmol/L (136-145)
[2022-06-01] MEDS: Docusate 100 MG CAP PO SCH ×2 (08:08→20:28)
[2022-06-01] MEDS: Cholecalciferol 1,000 UNITS (25 MCG) TAB PO SCH (08:08)
[2022-06-01] MEDS: Aspirin 81 mg Enteric Coated Tablet PO SCH (08:08)
[2022-06-01] MEDS: Lisinopril 10 MG TAB PO SCH (08:08)
[2022-06-01] MEDS: Metoprolol Tartrate 50 MG TAB PO SCH ×2 (08:08→20:28)
[2022-06-01] MEDS: Heparin 5,000 UNITS/ML VIAL SC SCH ×2 (08:09→20:28)
[2022-06-01] MEDS: cefTRIAXone\\ROCEPHIN 1 GM in Sodium Chloride 0.9% 100 ML IVPB SCH (20:28)
[2022-06-01] MEDS: Simvastatin 10 MG TAB PO SCH (20:28)
[2022-06-01] MEDS: HumaLOG 300 UNITS/3 ML VIAL SC PRN (20:29)
[2022-06-02] MEDS: Levothyroxine Sodium 50 MCG TAB PO SCH (04:52)
[2022-06-02 06:02] LABS: #Basophils 0.1 thou/uL (0.0-0.2); #Eosinphils 0.2 thou/uL (0.0-0.7); #Lymphocytes 1.4 thou/uL (1.20-3.40); #Monocytes 0.6 thou/uL (0.11-0.59); %Basophils 0.5 % (0.0-1.0); %Eosinophils 1.3 % (0.0-10.0); %Lymphocytes 12.4 % (21.0-51.0); %Monocytes 5.7 % (0.0-10.0); %Neutrophils 80.1 % (42.0-75.0); Hemoglobin 10.9 g/dL (12.0-16.0); Mean Corpuscular HGB CONC 32.6 g/dL (32.0-36.0); Mean Corpuscular Hemoglobin 27.3 pg (27.0-31.0); Mean Corpuscular Volume 83.7 fl (78.0-98.0); Mean Platelet Volume 8.9 fL (7.4-10.4); Platelet Count 318 10x3/uL (130-400); RBC Distribution Width 14.6 % (11.5-14.5); Red Blood Cell (RBC) Count 3.99 mill/uL (4.20-5.40); White Blood Cell (WBC) Count 11.2 10x3/uL (4.8-10.8)
[2022-06-02 06:21] LABS: Anion Gap 13 mmol/L (10-20); BUN (Urea Nitrogen) 17 mg/dL (9.8-20.1); Calc. Creatinine Clearance 23 mL/min (70-130); Calcium 9.6 mg/dL (7.8-10.44); Carbon Dioxide 24 mmol/L (23-31); Chloride 101 mmol/L (98-107); Estimated GFR 35; Glucose 139 mg/dL (83-110); Potassium 3.5 mmol/L (3.5-5.1); Sodium 134 mmol/L (136-145)
[2022-06-02] MEDS ORDERED: Potassium Chloride 20 MEQ TAB PO SCH (08:00)
[2022-06-02] MEDS: Aspirin 81 mg Enteric Coated Tablet PO SCH (08:42)
[2022-06-02] MEDS: Docusate 100 MG CAP PO SCH ×2 (08:42→20:29)
[2022-06-02] MEDS: Heparin 5,000 UNITS/ML VIAL SC SCH ×2 (08:44→20:28)
[2022-06-02] MEDS: Cholecalciferol 1,000 UNITS (25 MCG) TAB PO SCH (08:44)
[2022-06-02] MEDS: Lisinopril 10 MG TAB PO SCH (11:42)
[2022-06-02] MEDS: Metoprolol Tartrate 50 MG TAB PO SCH ×2 (11:42→20:52)
[2022-06-02] MEDS: Sodium Chloride 0.9% 1,000 ML IV SCH (14:35)
[2022-06-02] MEDS: cefTRIAXone\\ROCEPHIN 1 GM in Sodium Chloride 0.9% 100 ML IVPB SCH (20:29)
[2022-06-02] MEDS: Simvastatin 10 MG TAB PO SCH (20:29)
[2022-06-03] MEDS: Levothyroxine Sodium 50 MCG TAB PO SCH (04:46)
[2022-06-03] MEDS: Sodium Chloride 0.9% 1,000 ML IV SCH (06:09)
[2022-06-03 06:34] LABS: #Basophils 0.1 thou/uL (0.0-0.2); #Eosinphils 0.1 thou/uL (0.0-0.7); #Lymphocytes 1.2 thou/uL (1.20-3.40); #Monocytes 0.7 thou/uL (0.11-0.59); %Basophils 0.4 % (0.0-1.0); %Eosinophils 0.7 % (0.0-10.0); %Lymphocytes 10.1 % (21.0-51.0); %Monocytes 5.6 % (0.0-10.0); %Neutrophils 83.2 % (42.0-75.0); Hemoglobin 11.2 g/dL (12.0-16.0); Mean Corpuscular HGB CONC 32.2 g/dL (32.0-36.0); Mean Corpuscular Hemoglobin 27.3 pg (27.0-31.0); Mean Platelet Volume 8.3 fL (7.4-10.4); Platelet Count 333 10x3/uL (130-400); RBC Distribution Width 14.7 % (11.5-14.5); Red Blood Cell (RBC) Count 4.08 mill/uL (4.20-5.40)
[2022-06-03 06:57] LABS: Anion Gap 14 mmol/L (10-20); BUN (Urea Nitrogen) 15 mg/dL (9.8-20.1); Calc. Creatinine Clearance 24 mL/min (70-130); Calcium 9.8 mg/dL (7.8-10.44); Carbon Dioxide 23 mmol/L (23-31); Chloride 102 mmol/L (98-107); Estimated GFR 36; Glucose 161 mg/dL (83-110); Sodium 135 mmol/L (136-145)
[2022-06-03 08:24] VITALS: TEMP 98.6
[2022-06-03] MEDS: Aspirin 81 mg Enteric Coated Tablet PO SCH (08:57)
[2022-06-03] MEDS: Docusate 100 MG CAP PO SCH (08:57)
[2022-06-03] MEDS: Heparin 5,000 UNITS/ML VIAL SC SCH (08:57)
[2022-06-03] MEDS: Cholecalciferol 1,000 UNITS (25 MCG) TAB PO SCH (08:57)
[2022-06-03] MEDS: Metoprolol Tartrate 50 MG TAB PO SCH (08:57)
[2022-06-03 09:41] VITALS: BP 159/92
== END 2022-06-03 12:45 | DRG 871 ==
LOC: ERS 18:30 → ERHOLD 21:51 → T4-A 05-30 12:52
PROVIDERS: ADMIT Internal Medicine; ATTEND Internal Medicine
DX: A41.51 Sepsis due to Escherichia coli [E. coli] (principal); Z66 Do not resuscitate; Z20.822 Contact with and (suspected) exposure to COVID-19; G93.41 Metabolic encephalopathy; N30.00 Acute cystitis without hematuria; N17.9 Acute kidney failure, unspecified; E87.1 Hypo-osmolality and hyponatremia; Z16.11 Resistance to penicillins; Z16.23 Resistance to quinolones and fluoroquinolones; I13.0 Hypertensive heart and chronic kidney disease with heart failure and stage 1 through stage 4 chronic kidney disease, or unspecified chronic kidney disease; E87.20 Acidosis, unspecified; A41.4 Sepsis due to anaerobes; N18.2 Chronic kidney disease, stage 2 (mild); E03.9 Hypothyroidism, unspecified; E55.9 Vitamin D deficiency, unspecified; I48.0 Paroxysmal atrial fibrillation; I50.9 Heart failure, unspecified; E11.22 Type 2 diabetes mellitus with diabetic chronic kidney disease; E87.6 Hypokalemia; I49.1 Atrial premature depolarization; F03.90 Unspecified dementia, unspecified severity, without behavioral disturbance, psychotic disturbance, mood disturbance, and anxiety; E78.00 Pure hypercholesterolemia, unspecified; Z87.440 Personal history of urinary (tract) infections; Z87.898 Personal history of other specified conditions; Z79.899 Other long term (current) drug therapy; Z79.890 Hormone replacement therapy; Z79.82 Long term (current) use of aspirin; Z90.49 Acquired absence of other specified parts of digestive tract; Z98.51 Tubal ligation status; Z90.11 Acquired absence of right breast and nipple
CPT/HCPCS: 36415; 36416; 51701; 70450; 74176; 80048; 80053; 81003; 81015; 83605; 83735; 84100; 85025; 85610; 85730; 87040; 87077; 87086; 87149; 87186; 93005; 96365; J0696; J1644; J1815; J3475; J3480; J3490; J7050; U0003; U0005

== ENCOUNTER 2022-06-07 09:14 | Inpatient (IN) | payer MEDICARE, MEDICAID ==
[2022-06-07] MEDS ORDERED: cefTRIAXone\\ROCEPHIN 2 GM VIAL ONE (09:43)
[2022-06-07 10:00] LABS: #Basophils 0.1 thou/uL (0.0-0.2); #Eosinphils 0.2 thou/uL (0.0-0.7); #Lymphocytes 1.8 thou/uL (1.20-3.40); #Monocytes 0.8 thou/uL (0.11-0.59); #Neutrophils 13.4 thou/uL (1.40-6.50); %Basophils 0.3 % (0.0-1.0); %Lymphocytes 10.9 % (21.0-51.0); %Monocytes 4.9 % (0.0-10.0); %Neutrophils 82.8 % (42.0-75.0); Hemoglobin 11.6 g/dL (12.0-16.0); Mean Corpuscular Hemoglobin 26.8 pg (27.0-31.0); Mean Corpuscular Volume 83.9 fl (78.0-98.0); Mean Platelet Volume 8.7 fL (7.4-10.4); Platelet Count 390 10x3/uL (130-400); Red Blood Cell (RBC) Count 4.33 mill/uL (4.20-5.40); White Blood Cell (WBC) Count 16.1 10x3/uL (4.8-10.8)
[2022-06-07 10:04] LABS: Bilirubin Negative (Negative); Blood, Urine 1+ (Negative); Glucose, Urine (Dipstick) Normal (Negative); Ketone, Urine Negative (Negative); Leukocyte 500 Leu/uL (Negative); Nitrite Negative (Negative); Protein, Urine (Dipstick) 70 mg/dL (Neg-Trace); Specific Gravity, Urine 1.006 (1.002-1.036); Urobilinogen Normal mg/dL (Less than 2); WBC/HPF Greater than 50 HPF (0-3); pH, Urine 6.5 (5.0-9.0)
[2022-06-07 10:07] LABS: Clarity Turbid (Clear)
[2022-06-07 10:15] LABS: Bacteria/HPF 4+ HPF (None Seen)
[2022-06-07] MEDS ORDERED: Vancomycin 1 GM/200 ML (FROZEN) BAG ONE (10:22)
[2022-06-07 10:23] LABS: ALT (SGPT) Less than 7 U/L (8-55); AST (SGOT) 11 U/L (5-34); Albumin 3.1 g/dL (3.4-4.8); Alkaline Phosphatase 79 U/L (40-110); Anion Gap 17 mmol/L (10-20); BUN (Urea Nitrogen) 33 mg/dL (9.8-20.1); Bilirubin, Total 0.5 mg/dL (0.2-1.2); Calc. Creatinine Clearance 0 mL/min (70-130); Calcium 10.1 mg/dL (7.8-10.44); Carbon Dioxide 23 mmol/L (23-31); Chloride 97 mmol/L (98-107); Estimated GFR 18; Globulin 3.8 g/dL (2.4-3.5); Glucose 185 mg/dL (83-110); Lipase 23 U/L (8-78); Potassium 4.8 mmol/L (3.5-5.1); Protein, Total 6.9 g/dL (5.8-8.1); Sodium 132 mmol/L (136-145)
[2022-06-07 10:35] LABS: SARS-CoV-2 NAA Rapid Test Not Detected (NotDetected)
[2022-06-07] MEDS ORDERED: Acetaminophen 325 MG TAB PO PRN (11:41)
[2022-06-07] MEDS ORDERED: Senokot S 8.6-50 MG TAB PO PRN (11:41)
[2022-06-07] MEDS ORDERED: Ondansetron PF 4 MG/2 ML Vial IVP PRN (11:41)
[2022-06-07] MEDS ORDERED: Calcium Carbonate 500 MG ChewTAB PO PRN (11:41)
[2022-06-07] MEDS ORDERED: Dextrose 50% Abboject 50 ML SYRINGE SLOW IVP PRN (11:45)
[2022-06-07] MEDS ORDERED: Dextrose 5% in Water 1,000 ML IV PRN (11:45)
[2022-06-07 14:31] VITALS: BMI 24.3
[2022-06-07] MEDS: Sodium Chloride 0.9% 1,000 ML IV SCH (14:50)
[2022-06-07] MEDS: Heparin 5,000 UNITS/ML VIAL SC SCH ×2 (14:50→20:46)
[2022-06-07] MEDS: Metoprolol Tartrate 50 MG TAB PO SCH (20:46)
[2022-06-07] MEDS: Simvastatin 10 MG TAB PO SCH (20:46)
[2022-06-08] MEDS: Sodium Chloride 0.9% 1,000 ML IV SCH ×3 (01:04→13:01)
[2022-06-08 04:54] LABS: #Eosinphils 0.1 thou/uL (0.0-0.7); #Lymphocytes 1.1 thou/uL (1.20-3.40); #Monocytes 0.6 thou/uL (0.11-0.59); %Basophils 0.2 % (0.0-1.0); %Lymphocytes 8.8 % (21.0-51.0); %Monocytes 4.4 % (0.0-10.0); %Neutrophils 85.6 % (42.0-75.0); Hemoglobin 10.5 g/dL (12.0-16.0); Mean Corpuscular HGB CONC 32.2 g/dL (32.0-36.0); Mean Corpuscular Hemoglobin 26.9 pg (27.0-31.0); Mean Corpuscular Volume 83.6 fl (78.0-98.0); Mean Platelet Volume 8.4 fL (7.4-10.4); Platelet Count 357 10x3/uL (130-400); RBC Distribution Width 14.8 % (11.5-14.5); Red Blood Cell (RBC) Count 3.89 mill/uL (4.20-5.40); White Blood Cell (WBC) Count 12.8 10x3/uL (4.8-10.8)
[2022-06-08 05:28] LABS: ALT (SGPT) Less than 7 U/L (8-55); AST (SGOT) 12 U/L (5-34); Albumin 2.9 g/dL (3.4-4.8); Alkaline Phosphatase 76 U/L (40-110); Anion Gap 13 mmol/L (10-20); BUN (Urea Nitrogen) 29 mg/dL (9.8-20.1); Bilirubin, Total 0.3 mg/dL (0.2-1.2); Calc. Creatinine Clearance 16 mL/min (70-130); Calcium 9.3 mg/dL (7.8-10.44); Carbon Dioxide 21 mmol/L (23-31); Chloride 105 mmol/L (98-107); Estimated GFR 22; Globulin 3.6 g/dL (2.4-3.5); Glucose 143 mg/dL (83-110); Potassium 3.8 mmol/L (3.5-5.1); Protein, Total 6.5 g/dL (5.8-8.1); Sodium 135 mmol/L (136-145)
[2022-06-08] MEDS: Levothyroxine Sodium 50 MCG TAB PO SCH (06:17)
[2022-06-08] MEDS ORDERED: Meropenem 1 GM in Sodium Chloride 0.9% 100 ML IVPB SCH (09:00)
[2022-06-08] MEDS ORDERED: cefTRIAXone\\ROCEPHIN 1 GM in Sodium Chloride 0.9% 100 ML IVPB SCH (09:00)
[2022-06-08] MEDS ORDERED: Bisacodyl 10 MG SUPP PR PRN (09:04)
[2022-06-08] MEDS ORDERED: Bisacodyl 5 MG TAB PO PRN (09:04)
[2022-06-08] MEDS: Metoprolol Tartrate 50 MG TAB PO SCH ×2 (10:45→20:28)
[2022-06-08] MEDS: Heparin 5,000 UNITS/ML VIAL SC SCH ×3 (10:45→20:28)
[2022-06-08] MEDS: Aspirin 81 mg Enteric Coated Tablet PO SCH (10:45)
[2022-06-08] MEDS: Meropenem 500 MG in Sodium Chloride 0.9% 100 ML IVPB SCH (18:02)
[2022-06-08] MEDS: Simvastatin 10 MG TAB PO SCH (20:28)
[2022-06-09] MEDS: Meropenem 500 MG in Sodium Chloride 0.9% 100 ML IVPB SCH (05:34)
[2022-06-09] MEDS: Sodium Chloride 0.9% 1,000 ML IV SCH (05:34)
[2022-06-09] MEDS: Levothyroxine Sodium 50 MCG TAB PO SCH (05:45)
[2022-06-09 06:04] LABS: #Eosinphils 0.1 thou/uL (0.0-0.7); #Lymphocytes 1.2 thou/uL (1.20-3.40); #Monocytes 0.6 thou/uL (0.11-0.59); #Neutrophils 10.9 thou/uL (1.40-6.50); %Basophils 0.4 % (0.0-1.0); %Eosinophils 0.9 % (0.0-10.0); %Lymphocytes 9.5 % (21.0-51.0); %Monocytes 4.7 % (0.0-10.0); %Neutrophils 84.5 % (42.0-75.0); Hemoglobin 9.9 g/dL (12.0-16.0); Mean Corpuscular HGB CONC 32.5 g/dL (32.0-36.0); Mean Corpuscular Hemoglobin 27.8 pg (27.0-31.0); Mean Corpuscular Volume 85.5 fl (78.0-98.0); Mean Platelet Volume 8.5 fL (7.4-10.4); Platelet Count 330 10x3/uL (130-400); RBC Distribution Width 15.1 % (11.5-14.5); Red Blood Cell (RBC) Count 3.54 mill/uL (4.20-5.40); White Blood Cell (WBC) Count 12.9 10x3/uL (4.8-10.8)
[2022-06-09 06:28] LABS: Anion Gap 15 mmol/L (10-20); BUN (Urea Nitrogen) 28 mg/dL (9.8-20.1); Calc. Creatinine Clearance 15 mL/min (70-130); Calcium 9.3 mg/dL (7.8-10.44); Carbon Dioxide 19 mmol/L (23-31); Chloride 109 mmol/L (98-107); Estimated GFR 22; Glucose 142 mg/dL (83-110); Magnesium 1.8 mg/dL (1.6-2.6); Potassium 3.7 mmol/L (3.5-5.1); Sodium 139 mmol/L (136-145)
[2022-06-09] MEDS: Aspirin 81 mg Enteric Coated Tablet PO SCH (10:30)
[2022-06-09] MEDS: Polyethylene Glycol 3350 17 GM Packet PO SCH (10:30)
[2022-06-09] MEDS: Heparin 5,000 UNITS/ML VIAL SC SCH ×3 (10:30→20:28)
[2022-06-09] MEDS: Metoprolol Tartrate 50 MG TAB PO SCH ×2 (10:30→20:28)
[2022-06-09] MEDS: HumaLOG 300 UNITS/3 ML VIAL SC PRN (12:22)
[2022-06-09] MEDS: Simvastatin 10 MG TAB PO SCH (20:28)
[2022-06-10] MEDS: Levothyroxine Sodium 50 MCG TAB PO SCH (05:36)
[2022-06-10] MEDS: Polyethylene Glycol 3350 17 GM Packet PO SCH (09:49)
[2022-06-10] MEDS: Metoprolol Tartrate 50 MG TAB PO SCH ×2 (09:49→21:12)
[2022-06-10] MEDS: Aspirin 81 mg Enteric Coated Tablet PO SCH (09:49)
[2022-06-10] MEDS: Heparin 5,000 UNITS/ML VIAL SC SCH ×3 (09:49→21:12)
[2022-06-10] MEDS ORDERED: Iopamidol-370 76% 500 ML 1 ML ONE (09:51)
[2022-06-10] MEDS: HumaLOG 300 UNITS/3 ML VIAL SC PRN ×2 (13:12→21:14)
[2022-06-10] MEDS ORDERED: Amlodipine 5 MG TAB PO SCH (14:45)
[2022-06-10] MEDS: Sodium Chloride 0.9% 1,000 ML IV SCH (15:17)
[2022-06-10] MEDS: Simvastatin 10 MG TAB PO SCH (21:13)
[2022-06-11] MEDS: Levothyroxine Sodium 50 MCG TAB PO SCH (06:32)
[2022-06-11] MEDS: HumaLOG 300 UNITS/3 ML VIAL SC PRN ×3 (06:38→21:13)
[2022-06-11] MEDS: Sodium Chloride 0.9% 1,000 ML IV SCH ×2 (06:40→15:17)
[2022-06-11] MEDS: Amlodipine 5 MG TAB PO SCH (10:19)
[2022-06-11] MEDS: Polyethylene Glycol 3350 17 GM Packet PO SCH (10:20)
[2022-06-11] MEDS: Aspirin 81 mg Enteric Coated Tablet PO SCH (10:21)
[2022-06-11] MEDS: Metoprolol Tartrate 50 MG TAB PO SCH ×2 (10:21→21:02)
[2022-06-11] MEDS: Heparin 5,000 UNITS/ML VIAL SC SCH ×3 (10:21→21:02)
[2022-06-11] MEDS: Simvastatin 10 MG TAB PO SCH (21:02)
[2022-06-12] MEDS: Sodium Chloride 0.9% 1,000 ML IV SCH ×2 (05:30→23:55)
[2022-06-12 06:06] LABS: Hemoglobin 9.7 g/dL (12.0-16.0); Mean Corpuscular HGB CONC 32.1 g/dL (32.0-36.0); Mean Corpuscular Hemoglobin 27.1 pg (27.0-31.0); Mean Corpuscular Volume 84.2 fl (78.0-98.0); Mean Platelet Volume 8.6 fL (7.4-10.4); Platelet Count 310 10x3/uL (130-400); RBC Distribution Width 15.4 % (11.5-14.5); White Blood Cell (WBC) Count 16.7 10x3/uL (4.8-10.8)
[2022-06-12 06:26] LABS: Anion Gap 14 mmol/L (10-20); BUN (Urea Nitrogen) 31 mg/dL (9.8-20.1); Calc. Creatinine Clearance 13 mL/min (70-130); Calcium 9.6 mg/dL (7.8-10.44); Carbon Dioxide 21 mmol/L (23-31); Chloride 113 mmol/L (98-107); Estimated GFR 18; Glucose 178 mg/dL (83-110); Potassium 3.8 mmol/L (3.5-5.1); Sodium 144 mmol/L (136-145)
[2022-06-12] MEDS ORDERED: Fentanyl 100 MCG/2 ML VIAL ONE (09:49)
[2022-06-12] MEDS ORDERED: Iopamidol 300 61% 100 ML VIAL FS ONE (10:03)
[2022-06-12] MEDS: Heparin 5,000 UNITS/ML VIAL SC SCH ×3 (10:52→21:06)
[2022-06-12] MEDS: Polyethylene Glycol 3350 17 GM Packet PO SCH (10:52)
[2022-06-12] MEDS: Metoprolol Tartrate 50 MG TAB PO SCH ×2 (12:24→21:07)
[2022-06-12] MEDS: Amlodipine 5 MG TAB PO SCH (12:24)
[2022-06-12] MEDS: Aspirin 81 mg Enteric Coated Tablet PO SCH (12:25)
[2022-06-12] MEDS: Simvastatin 10 MG TAB PO SCH (21:07)
[2022-06-12] MEDS: HumaLOG 300 UNITS/3 ML VIAL SC PRN (22:18)
[2022-06-13] MEDS: Levothyroxine Sodium 50 MCG TAB PO SCH (05:30)
[2022-06-13] MEDS: Amlodipine 5 MG TAB PO SCH (09:32)
[2022-06-13] MEDS: Heparin 5,000 UNITS/ML VIAL SC SCH ×3 (09:33→20:31)
[2022-06-13] MEDS: Aspirin 81 mg Enteric Coated Tablet PO SCH (09:33)
[2022-06-13] MEDS: Metoprolol Tartrate 50 MG TAB PO SCH ×2 (09:33→20:31)
[2022-06-13] MEDS: Polyethylene Glycol 3350 17 GM Packet PO SCH (09:33)
[2022-06-13] MEDS: Sodium Chloride 0.9% 1,000 ML IV SCH (09:33)
[2022-06-13] MEDS: HumaLOG 300 UNITS/3 ML VIAL SC PRN ×2 (12:50→18:04)
[2022-06-13] MEDS: Simvastatin 10 MG TAB PO SCH (20:31)
[2022-06-14] MEDS: Sodium Chloride 0.9% 1,000 ML IV SCH (02:50)
[2022-06-14] MEDS: Levothyroxine Sodium 50 MCG TAB PO SCH (05:50)
[2022-06-14] MEDS: HumaLOG 300 UNITS/3 ML VIAL SC PRN (05:51)
[2022-06-14 06:02] LABS: Hemoglobin 10.7 g/dL (12.0-16.0); Mean Corpuscular HGB CONC 31.9 g/dL (32.0-36.0); Mean Corpuscular Hemoglobin 26.9 pg (27.0-31.0); Mean Corpuscular Volume 84.3 fl (78.0-98.0); Platelet Count 284 10x3/uL (130-400); RBC Distribution Width 15.9 % (11.5-14.5); Red Blood Cell (RBC) Count 3.98 mill/uL (4.20-5.40); White Blood Cell (WBC) Count 17.7 10x3/uL (4.8-10.8)
[2022-06-14 06:15] LABS: Anion Gap 16 mmol/L (10-20); BUN (Urea Nitrogen) 25 mg/dL (9.8-20.1); Calc. Creatinine Clearance 18 mL/min (70-130); Carbon Dioxide 16 mmol/L (23-31); Chloride 110 mmol/L (98-107); Estimated GFR 25; Glucose 163 mg/dL (83-110); Potassium 3.3 mmol/L (3.5-5.1); Sodium 139 mmol/L (136-145)
[2022-06-14] MEDS: Heparin 5,000 UNITS/ML VIAL SC SCH (08:55)
[2022-06-14] MEDS: Amlodipine 5 MG TAB PO SCH (08:55)
[2022-06-14] MEDS: Aspirin 81 mg Enteric Coated Tablet PO SCH (08:55)
[2022-06-14] MEDS: Polyethylene Glycol 3350 17 GM Packet PO SCH (08:56)
[2022-06-14] MEDS: Metoprolol Tartrate 50 MG TAB PO SCH (08:56)
[2022-06-14 12:01] VITALS: BP 132/78; TEMP 97.6
== END 2022-06-14 13:45 | DRG 689 ==
LOC: ERS 09:14 → SUATTDRO 09:14 → 2NO 13:11 → SURG A 06-08 14:14
PROVIDERS: ADMIT Internal Medicine; ATTEND Internal Medicine
PROC: 0T9B70Z Drainage of Bladder with Drainage Device, Via Natural or Artificial Opening (ICD-10-PCS; principal; 2022-06-10)
PROC: 0TJB8ZZ Inspection of Bladder, Via Natural or Artificial Opening Endoscopic (ICD-10-PCS; 2022-06-10)
PROC: 0T9430Z Drainage of Left Kidney Pelvis with Drainage Device, Percutaneous Approach (ICD-10-PCS; 2022-06-12)
PROC: 0T9330Z Drainage of Right Kidney Pelvis with Drainage Device, Percutaneous Approach (ICD-10-PCS; 2022-06-12)
DX: N13.6 Pyonephrosis (principal); G93.41 Metabolic encephalopathy; N82.0 Vesicovaginal fistula; I13.0 Hypertensive heart and chronic kidney disease with heart failure and stage 1 through stage 4 chronic kidney disease, or unspecified chronic kidney disease; I50.32 Chronic diastolic (congestive) heart failure; E87.1 Hypo-osmolality and hyponatremia; Z51.5 Encounter for palliative care; N17.9 Acute kidney failure, unspecified; F03.90 Unspecified dementia, unspecified severity, without behavioral disturbance, psychotic disturbance, mood disturbance, and anxiety; E11.22 Type 2 diabetes mellitus with diabetic chronic kidney disease; I48.0 Paroxysmal atrial fibrillation; E03.9 Hypothyroidism, unspecified; E11.51 Type 2 diabetes mellitus with diabetic peripheral angiopathy without gangrene; Z66 Do not resuscitate; N32.89 Other specified disorders of bladder; B95.2 Enterococcus as the cause of diseases classified elsewhere; M19.90 Unspecified osteoarthritis, unspecified site; E78.00 Pure hypercholesterolemia, unspecified; Z96.653 Presence of artificial knee joint, bilateral; N18.4 Chronic kidney disease, stage 4 (severe); N39.46 Mixed incontinence; Z20.822 Contact with and (suspected) exposure to COVID-19; Z90.11 Acquired absence of right breast and nipple; Z79.899 Other long term (current) drug therapy; Z79.82 Long term (current) use of aspirin; Z79.890 Hormone replacement therapy; Z98.41 Cataract extraction status, right eye; Z98.42 Cataract extraction status, left eye; Z90.49 Acquired absence of other specified parts of digestive tract; Z98.51 Tubal ligation status; Z79.4 Long term (current) use of insulin; Z87.440 Personal history of urinary (tract) infections
CPT/HCPCS: 36415; 36416; 50430; 50432; 51701; 70450; 71250; 72194; 74177; 74485; 80048; 80053; 81003; 81015; 83605; 83690; 83735; 83880; 84484; 85025; 85027; 87040; 87077; 87086; 87186; 87811; 93005; 96365; 96367; C1729; J0696; J1644; J1815; J2185; J3010; J3370-JW; J3490; J7050; Q9967